=== PATIENT | male | born 1970 | race Caucasian/White ===

== ENCOUNTER 2020-04-14 12:53 | Inpatient (IN) ==
--- NOTE | 2020-04-14 13:18 | Emergency Department Note ---
Impression & Plan Acute renal failure, Dizziness, Back pain, Acute hyperglycemia, Hypokalemia ED Provider Note INFORMANT: Patient ED PROVIDER(S): Boone Munroe MD CHIEF COMPLAINT: Dizziness PLAN: Disposition: Admitted Condition: Good MEDICAL DECISION MAKING: Patient presented with complaints of acute dizziness going on for at least 3 weeks. He notes falling to the side. He did not give a strong history for vertigo. The patient was somewhat of a poor historian on medical details. He also was found to be significantly hypertensive. The patient underwent a work- up. Initially CT angiography was ordered however the patient was found to have acute renal failure and the contrast studies were canceled. He underwent plain CT imaging of his head and this was negative for acute process. The patient's ECG showed a sinus tachycardia with inferior T wave inversions. His chemistry panel revealed significant hyperglycemia and hypokalemia. As noted he had acute renal failure. This was a significant change compared to prior record review. The patient was hydrated. He was given IV insulin and potassium. He was also given IV hydralazine 5 mg. The patient will need further management in the hospital regarding his complaints of the dizziness and balance issue coupled with the acute renal failure and hyperglycemia. [facility] Case was discussed with Niko Gutierrez PA-C. The patient will be admitted by the team. Triage Nursing notes reviewed and agree them. Additional history obtained from patient significant other Prior medical records reviewed creatinine from last year was 1.5. Vital Signs: reviewed and remarkable for significant hypertension Differential diagnosis: Benign positional vertigo, dehydration, hypovolemia, anemia, tumor, infection, hypoglycemia, electrolyte abnormalities, cardiac sources, intracerebral event, toxicologic, neurologic, as well as other pathologies. Diagnostics interpreted by me: ECG: Twelve-lead ECG reveals a sinus tachycardia at 106 bpm. There are inferior T wave inversions. There is no ST elevation. No PACs or PVCs. Normal axis and QRS. Cardiac Monitoring: Cardiac monitoring ordered by me: The patient was placed on continuous cardiac monitoring and observed. It revealed a normal sinus rhythm at 98 beats per minute without ectopy or evidence of dysrhythmia. Imaging studies: Chest x-ray. Findings: A chest x-ray was performed and revealed no pneumothorax, effusion, infiltrate, pulmonary edema, free air under the diaphragm, or wide mediastinum. Impression: No acute disease. Head CT: A noncontrast CT scan of the head was performed and was negative for tumor, fracture, intracranial hemorrhage, or other acute pathology. Consultation(s): [facility] service HPI: The patient is a 49 year old male who presents to the Emergency Room with complaints of dizziness. This started 3 weeks or more ago and is persistent. The patient also notes the following associated symptoms, upper and lower back pain, mild headache. Notes falling to the right side. The patient has found no relieving factors. Current pain is rated as 2/10. Notes no room spinning, he feels off balance. Pt denies LOC, fevers, chills, diaphoresis, visual changes, neck pain, chest pain, breathing difficulties, nausea, vomiting, abdominal pain, melena, hematochezia, urinary symptoms, numbness, weakness, lymphadenopathy, rash, or other complaints. ROS: See above HPI for pertinent positives & negatives. A total of 10 systems reviewed and were otherwise negative. PAST MEDICAL HISTORY:See Below, DM, HTN PAST SURGICAL HISTORY:Tonsils FAMILY HISTORY:See Below SOCIAL HISTORY:See Below, Chews tobacco HOME MEDICATIONS:See Below ALLERGIES:See Below VITALS:See Below PHYSICAL EXAMINATION: GENERAL: Awake, alert, mildly uncomfortable-appearing, in no distress HENT: Normocephalic, atraumatic. Oropharynx unremarkable. EYES: Normal conjunctiva. Sclera non-icteric. PERRL, EOMI. NECK: Inspection normal. Non-tender. Supple. No nuchal rigidity. FROM. No masses. RESPIRATORY: Clear to auscultation. No wheezes. No rales. Normal respiratory effort. CARDIAC: Normal rate. Normal rhythm. No murmurs. No rubs. Extremities warm and well perfused. Pulses equal. No JVD. GI: Soft, non-distended. No tenderness to palpation. No rebound or guarding. No masses. RECTAL: Deferred. MUSCULOSKELETAL: Atraumatic. Chest examination reveals no tenderness. The back is symmetrical on inspection without obvious abnormality. There is no CVA tenderness to palpation. No joint edema. LOWER EXTREMITIES: Calves are equal size bilaterally and non-tender. No edema. No discoloration. NEURO: Normal sensorium. No sensory or motor deficits noted. Speech normal. No drift. SKIN: No rash or jaundice noted. 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 Beliefs That Will Affect Care: None Current Living Situation: Significant Other Other Information That Helps Us Care for You: No Feels Safe at Home: Yes Safety Concerns: Feels Safe At This Time Assistive Devices: Glasses Allergies Allergies Allergy/AdvReac Type Severity Reaction Status Date / Time No Known Allergies Allergy Unverified 04/14/20 14:13 Home Meds Home Medications Medication Instructions Recorded Confirmed amlodipine 10 mg PO DAILY 04/14/20 04/14/20 aspirin [Aspirin Low Dose] 81 mg PO DAILY 04/14/20 04/14/20 atorvastatin 80 mg PO DAILY 04/14/20 04/14/20 bupropion HCl 300 mg PO DAILY 04/14/20 04/14/20 cholecalciferol (vitamin D3) 50 mcg PO DAILY 04/14/20 04/14/20 cyclobenzaprine 10 mg PO HS PRN 04/14/20 04/14/20 ergocalciferol (vitamin D2) 1,250 mcg PO WK 04/14/20 04/14/20 fenofibrate nanocrystallized 145 mg PO DAILY 04/14/20 04/14/20 glipizide 10 mg PO DAILY 04/14/20 04/14/20 insulin glargine [Lantus Solostar 62 unit SUBCUT DAILY 04/14/20 04/14/20 U-100 Insulin] linagliptin 5 mg PO DAILY 04/14/20 04/14/20 losartan 100 mg PO DAILY 04/14/20 04/14/20 metformin 500 mg PO BID 04/14/20 04/14/20 metoprolol succinate 25 mg PO DAILY 04/14/20 04/14/20 triamcinolone acetonide 1 applic TOPICAL BID 04/14/20 04/14/20 Results & Data (ED) Vital Signs Vital Signs - 24 hr 04/14/20 13:04 04/14/20 13:34 04/14/20 15:12 Temperature 36.8 C Temperature Source Oral Pulse Rate - Lying 98 H Pulse Rate - Sitting 103 H Pulse Rate - Standing 106 H Pulse Rate 118 H Pulse Rate [Left Finger] 84 Respiratory Rate 18 20 Respiratory Effort / Characteristics Non-Labored Spontaneous Respiratory Depth Normal Respiratory Pattern Regular Blood Pressure - Lying 204/117 H Blood Pressure - Sitting 195/118 H Blood Pressure- Standing 176/102 H Blood Pressure 193/102 H Blood Pressure [Right Arm] 232/117 H Blood Pressure Mean 132 Blood Pressure Mean [Right Arm] 155 Blood Pressure Position Sitting Pulse Oximetry 98 98 Oxygen Delivery Method Room Air Sepsis Recent Fever Within 48 Hours No Sepsis New/Unexplained Change in Mental Status N/A Sepsis Action Taken by Nursing No Action Required 04/14/20 15:50 Temperature Temperature Source Pulse Rate - Lying Pulse Rate - Sitting Pulse Rate - Standing Pulse Rate Pulse Rate [Left Finger] 87 Respiratory Rate 20 Respiratory Effort / Characteristics Respiratory Depth Respiratory Pattern Blood Pressure - Lying Blood Pressure - Sitting Blood Pressure- Standing Blood Pressure Blood Pressure [Right Arm] 232/112 H Blood Pressure Mean Blood Pressure Mean [Right Arm] 152 Blood Pressure Position Pulse Oximetry Oxygen Delivery Method Sepsis Recent Fever Within 48 Hours Sepsis New/Unexplained Change in Mental Status Sepsis Action Taken by Nursing Laboratory Data Result diagrams: 04/14/20 13:22 04/14/20 13:22 Lab Results 04/14/20 04/14/20 04/14/20 Range/Units 13:22 13:22 13:22 WBC 8.71 (4.8-10.8) K/uL RBC 4.50 L (4.7-6.1) M/uL Hgb 13.3 L (14.0-18.0) g/dL Hct 39.4 L (42-52) % MCV 87.6 (80-100) fL MCH 29.6 (25-34) pg MCHC 33.8 (32-36) g/dL RDW Std Deviation 43.5 (36.4-46.3) fL RDW Coeff of Luz 13.5 (11.5-14.5) % Plt Count 530 H (130-400) K/uL MPV 9.7 (7.4-10.4) fL Immature Gran % (Auto) 0.3 % Neut % (Auto) 72.9 % Lymph % (Auto) 20.3 % [place] % (Auto) 5.5 % Eos % (Auto) 0.8 % Baso % (Auto) 0.2 % Neut # (Auto) 6.34 (1.4-6.5) K/uL Lymph # (Auto) 1.77 (1.2-3.4) K/uL [place] # (Auto) 0.48 (0.11-0.59) K/uL Eos # (Auto) 0.07 (0-0.5) K/uL Baso # (Auto) 0.02 (0-0.2) K/uL Immature Gran # (Auto) 0.03 H (0.00-0.02) K/uL PT 10.9 (9.0-12.0) Seconds INR 1.0 (0.9-1.1) APTT 24.3 (21.0-31.0) Seconds PTT Ratio 0.9 Sodium 134 L (136-145) mmol/L Potassium 3.2 L (3.5-5.1) mmol/L Chloride 101 (98-107) mmol/L Carbon Dioxide 23 (21-32) mmol/L Anion Gap 11.0 (3-11) BUN 33 H (7-18) mg/dl Creatinine 3.94 H (0.6-1.4) mg/dl Est Cr Clr Drug Dosing 23.9 ml/min Est GFR ( Amer) 19.4 Est GFR (Non-Af Amer) 16.8 BUN/Creatinine Ratio 8.4 L (10-20) Glucose 455 H* (70-99) mg/dl POC Glucose (70-99) mg/dl Calcium 8.4 L (8.5-10.1) mg/dl Magnesium 1.9 (1.8-2.4) mg/dl Total Bilirubin 0.2 (0.2-1) mg/dl AST 20 (15-37) U/L ALT 26 (12-78) U/L Alkaline Phosphatase 90 (45-117) U/L Troponin I < 0.015 (0-0.045) ng/ml Total Protein 6.1 L (6.4-8.2) gm/dl Albumin 1.8 L (3.4-5.0) gm/dl Globulin 4.3 H (2.5-4.0) gm/dl Albumin/Globulin Ratio 0.4 L (0.9-2) Beta-Hydroxybutyric Acd 4.61 H (0.2-2.81) mg/dl TSH 3.650 (0.300-4.500) uIu/ml Urine Color Urine Appearance (Clear) Urine pH (4.5-7.5) Ur Specific [place] (1.000-1.030) Urine Protein (Negative) Urine Glucose (UA) (Negative) Urine Ketones (Negative) Urine Blood (Negative) Urine Nitrite (Negative) Urine Bilirubin (Negative) Urine Urobilinogen (Negative) Ur Leukocyte Esterase (Negative) Urine WBC (Auto) (0-5) /hpf Urine RBC (Auto) (0-4) /hpf U Hyaline Cast (Auto) (0-5) /lpf U Epithel Cells (Auto) (0-5) /lpf Urine Bacteria (Auto) (Negative) Ur Renal Epithelial Cell (0-5) /lpf 04/14/20 04/14/20 04/14/20 Range/Units 13:22 14:30 15:08 WBC (4.8-10.8) K/uL RBC (4.7-6.1) M/uL Hgb (14.0-18.0) g/dL Hct (42-52) % MCV (80-100) fL MCH (25-34) pg MCHC (32-36) g/dL RDW Std Deviation (36.4-46.3) fL RDW Coeff of Luz (11.5-14.5) % Plt Count (130-400) K/uL MPV (7.4-10.4) fL Immature Gran % (Auto) % Neut % (Auto) % Lymph % (Auto) % [place] % (Auto) % Eos % (Auto) % Baso % (Auto) % Neut # (Auto) (1.4-6.5) K/uL Lymph # (Auto) (1.2-3.4) K/uL [place] # (Auto) (0.11-0.59) K/uL Eos # (Auto) (0-0.5) K/uL Baso # (Auto) (0-0.2) K/uL Immature Gran # (Auto) (0.00-0.02) K/uL PT (9.0-12.0) Seconds INR (0.9-1.1) APTT (21.0-31.0) Seconds PTT Ratio Sodium (136-145) mmol/L Potassium (3.5-5.1) mmol/L Chloride (98-107) mmol/L Carbon Dioxide (21-32) mmol/L Anion Gap (3-11) BUN (7-18) mg/dl Creatinine (0.6-1.4) mg/dl Est Cr Clr Drug Dosing ml/min Est GFR ( Amer) Est GFR (Non-Af Amer) BUN/Creatinine Ratio (10-20) Glucose (70-99) mg/dl POC Glucose 397 H* (70-99) mg/dl Calcium (8.5-10.1) mg/dl Magnesium (1.8-2.4) mg/dl Total Bilirubin (0.2-1) mg/dl AST (15-37) U/L ALT (12-78) U/L Alkaline Phosphatase (45-117) U/L Troponin I (0-0.045) ng/ml Total Protein (6.4-8.2) gm/dl Albumin (3.4-5.0) gm/dl Globulin (2.5-4.0) gm/dl Albumin/Globulin Ratio (0.9-2) Beta-Hydroxybutyric Acd (0.2-2.81) mg/dl TSH Cancelled (0.300-4.500) uIu/ml Urine Color Yellow Urine Appearance Clear (Clear) Urine pH 6.0 (4.5-7.5) Ur Specific [place] 1.028 (1.000-1.030) Urine Protein 4+ H (Negative) Urine Glucose (UA) 3+ H (Negative) Urine Ketones Negative (Negative) Urine Blood 2+ H (Negative) Urine Nitrite Negative (Negative) Urine Bilirubin Negative (Negative) Urine Urobilinogen Negative (Negative) Ur Leukocyte Esterase Negative (Negative) Urine WBC (Auto) 1-5 (0-5) /hpf Urine RBC (Auto) 5-10 H (0-4) /hpf U Hyaline Cast (Auto) 5-10 H (0-5) /lpf U Epithel Cells (Auto) >30 H (0-5) /lpf Urine Bacteria (Auto) Negative (Negative) Ur Renal Epithelial Cell 0-5 (0-5) /lpf Administered Medications Sodium Chloride (Nss 1000ml) 1,000 mls @ 125 mls/hr IV .Q8H [facility] Stop: 05/14/20 18:12 Last Admin: 04/14/20 18:48 Dose: 125 mls/hr Documented by: [id number] Insulin Aspart (Insulin Aspart 100 Units/Ml 3 Ml Pen) 0 units SC ACHS RUPESH; Protocol Stop: 05/14/20 19:29 Last Admin: 04/14/20 19:37 Dose: 10 units Documented by: [id number] Cosigned by: [id number] Triamcinolone Acetonide (Triamcinolone Acet 0.1% Cr 15 Gm Tube) 1 appln TOP BID RUPESH Stop: 05/14/20 20:59 Last Admin: 04/14/20 19:37 Dose: 1 appln Documented by: [id number] Discontinued Medications Amlodipine Besylate (Amlodipine Besylate 5 Mg Tab) 10 mg PO NOW ONE Stop: 04/14/20 18:14 Last Admin: 04/14/20 18:48 Dose: 10 mg Documented by: [id number] Hydralazine HCl (Hydralazine Hcl 20 Mg/Ml Vial) 5 mg IV NOW ONE Stop: 04/14/20 15:38 Last Admin: 04/14/20 15:42 Dose: Not Given Documented by: [id number] Hydralazine HCl (Hydralazine Hcl 20 Mg/Ml Vial) 10 mg IV NOW STA Stop: 04/14/20 15:38 Last Admin: 04/14/20 15:47 Dose: 10 mg Documented by: [id number] Sodium Chloride (Nss 1000ml) 1,000 mls @ 50 mls/hr IV .Q20H RUPESH Stop: 05/14/20 13:29 Last Infusion: 04/14/20 16:40 Dose: 0 mls/hr Documented by: [id number] Admin: 04/14/20 13:34 Dose: 50 mls/hr Documented by: [id number] Sodium Chloride (Nss 1000ml) 1,000 mls @ 999 mls/hr IV .Q1H1M RUPESH Stop: 04/14/20 15:36 Last Infusion: 04/14/20 16:40 Dose: 0 mls/hr Documented by: [id number] Admin: 04/14/20 15:12 Dose: 999 mls/hr Documented by: [id number] Potassium Chloride (K Jeovany / Wtr) 10 meq in 100 mls @ 100 mls/hr IV ONE ONE Stop: 04/14/20 15:36 Last Infusion: 04/14/20 16:40 Dose: 0 mls/hr Documented by: [id number] Admin: 04/14/20 15:12 Dose: 100 mls/hr Documented by: [id number] Insulin Human Regular (Novolin-R Insulin Per Unit Charge) 10 units IV NOW STA Stop: 04/14/20 14:37 Last Admin: 04/14/20 15:23 Dose: 10 units Documented by: [id number] Cosigned by: [id number] Ioversol (Optiray 320 125ml) 120 ml IV ONCE ONE Stop: 04/14/20 13:24 Last Admin: 04/14/20 13:24 Dose: 120 ml Documented by: [id number] Labetalol HCl (Labetalol Hcl Iv 5 Mg/Ml 20ml) 10 mg IV NOW STA Stop: 04/14/20 19:51 Last Admin: 04/14/20 20:04 Dose: 10 mg Documented by: [id number] Cosigned by: [id number] Potassium Chloride (Potassium Chloride 20 Meq Tabcr) 40 meq PO NOW STA Stop: 04/14/20 18:53 Last Admin: 04/14/20 19:37 Dose: 40 meq Documented by: [id number] Discharge Plan Visit Data Chief Complaint: Vertigo Stated Complaint: BACK PROBLEMS DIZZY ED Provider: Boone Munroe Discharge Problem: Acute renal failure, Dizziness, Back pain, Acute hyperglycemia, Hypokalemia Patient Disposition: Admitted As Inpatient Discharge Instructions Interventions: ED Discharge Assessment Last Done: 04/14/20 17:41
[2020-04-14] MEDS ORDERED: OPTIRAY 320 125ml IV ONE (13:23)
[2020-04-14] MEDS ORDERED: SODIUM CHLORIDE 0.9% 1000ML 1,000 ML IV SCH ×2 (13:30→14:36)
[2020-04-14 13:34] LABS: Basophils # (auto) 0.02 K/uL (0-0.2); Basophils % (auto) 0.2 %; Eosinophils # (auto) 0.07 K/uL (0-0.5); Eosinophils % (auto) 0.8 %; Hematocrit (blood only) 39.4 % (42-52); Hemoglobin 13.3 g/dL (14.0-18.0); Immature Granulocytes # (auto) 0.03 K/uL (0.00-0.02); Immature Granulocytes % (auto) 0.3 %; Lymphocytes # (auto) 1.77 K/uL (1.2-3.4); Lymphocytes % (auto) 20.3 %; Mean Corpuscular Hemoglobin 29.6 pg (25-34); Mean Corpuscular Hgb Conc 33.8 g/dL (32-36); Mean Corpuscular Volume 87.6 fL (80-100); Mean Platelet Volume 9.7 fL (7.4-10.4); Monocytes # (auto) 0.48 K/uL (0.11-0.59); Monocytes % (auto) 5.5 %; Neutrophils # (auto) 6.34 K/uL (1.4-6.5); Neutrophils % (auto) 72.9 %; Platelet Count 530 K/uL (130-400); RDW Coefficient of Variation 13.5 % (11.5-14.5); RDW Standard Deviation 43.5 fL (36.4-46.3); White Blood Count 8.71 K/uL (4.8-10.8)
[2020-04-14 13:44] LABS: Partial Thromboplastin Ratio 0.9; Partial Thromboplastin Time 24.3 Seconds (21.0-31.0); Prothrombin Time 10.9 Seconds (9.0-12.0)
--- NOTE | 2020-04-14 13:58 | XRay Report ---
XR chest 1V portable CLINICAL HISTORY: dizziness COMPARISON STUDY: No previous studies for comparison. FINDINGS: Lung volumes are normal. Lungs are clear. There is no pneumothorax or pleural effusion. Car diac size is normal. Mediastinal contours are normal. There is no evidence for pulmonary edema. IMPRESSION: No acute cardiopulmonary findings. ACT 112: Negative or not required by law. Electronically signed by: Yordy Coon M.D. 04/14/2020 1:57 PM
[2020-04-14 14:03] LABS: Alanine Aminotransferase 26 U/L (12-78); Albumin Globulin Ratio 0.4 (0.9-2); Albumin Level 1.8 gm/dl (3.4-5.0); Aspartate Aminotransferase 20 U/L (15-37); BUN Creatinine Ratio 8.4 (10-20); Bilirubin,Total 0.2 mg/dl (0.2-1); Blood Urea Nitrogen 33 mg/dl (7-18); Calcium 8.4 mg/dl (8.5-10.1); Carbon Dioxide 23 mmol/L (21-32); Chloride 101 mmol/L (98-107); Creatinine Clr Calc Pharmacy 23.9 ml/min; Est GFR (African American) 19.4; Est GFR (Non-African American) 16.8; Globulin 4.3 gm/dl (2.5-4.0); Glucose 455 mg/dl (70-99); Magnesium 1.9 mg/dl (1.8-2.4); Potassium 3.2 mmol/L (3.5-5.1); Sodium 134 mmol/L (136-145); Total Protein 6.1 gm/dl (6.4-8.2)
[2020-04-14 14:09] LABS: Alkaline Phosphatase 90 U/L (45-117); Troponin I < 0.015 ng/ml (0-0.045)
[2020-04-14 14:21] LABS: Beta-Hydroxybutyrate 4.61 mg/dl (0.2-2.81)
[2020-04-14] MEDS ORDERED: NovoLIN-R INSULIN PER UNIT CHARGE IV STA (14:36)
[2020-04-14] MEDS ORDERED: POTASSIUM CHLORIDE / WTR 10 MEQ/100 ML PLCT IV ONE (14:37)
[2020-04-14 15:04] LABS: Appearance Urine Clear (Clear); Bacteria Urine Automated Negative (Negative); Bilirubin Urine Negative (Negative); Blood Urine 2+ (Negative); Color Urine Yellow; Epithelial Cell Urine Auto >30 /lpf (0-5); Glucose Urine UA 3+ (Negative); Ketones Urine Negative (Negative); Leukocyte Esterase Urine Negative (Negative); Nitrite Urine Negative (Negative); Protein Urine 4+ (Negative); Specific Gravity Urine 1.028 (1.000-1.030); Urobilinogen Urine Negative (Negative)
--- NOTE | 2020-04-14 15:08 | CT Scan Report ---
CT OF THE HEAD WITHOUT CONTRAST CLINICAL HISTORY: Stroke evaluation. Dizzy. COMPARISON STUDY: No previous studies for comparison. CT DOSE: 537.48 mGy.cm TECHNIQUE: Helical axial images of the head were obtained without IV contrast. Automated exposure con trol was utilized for the study. A dose lowering technique was utilized adhering to the principles o f ALARA. FINDINGS: No acute intracranial hemorrhage, midline shift or mass effect is present. The ventricular system is unremarkable. The basilar cisterns are patent. No extra-axial collections are present. Ther e are no findings to suggest acute dural sinus thrombosis or acute territorial infarct. No significan t calvarial abnormalities are present. Visualized portions of the sinuses are clear. A small amount o f fluid within the bilateral mastoid air cells is noted. IMPRESSION: 1. No acute intracranial findings. 2. Small amount of fluid within the bilateral mastoid air cells. ACT 112: Negative or not required by law. Electronically signed by: Yordy Coon M.D. 04/14/2020 3:06 PM
[2020-04-14 15:19] LABS: Renal Epithelial Cells Urine 0-5 /lpf (0-5)
[2020-04-14] MEDS ORDERED: HydrALAZINE HCL 20 MG/ML VIAL IV STA (15:37)
[2020-04-14] MEDS ORDERED: HydrALAZINE HCL 20 MG/ML VIAL IV ONE (15:37)
[2020-04-14] MEDS ORDERED: AMLODIPINE BESYLATE 5 MG TAB PO ONE (18:13)
[2020-04-14] MEDS ORDERED: ONDANSETRON INJ 2 MG/ML 2 ML VIAL IV PRN (18:13)
[2020-04-14] MEDS ORDERED: CYCLOBENZAPRINE HCL 10 MG TAB PO PRN (18:13)
[2020-04-14] MEDS ORDERED: PHARMACY GLYCEMIC MGMT CONSULT SCH (18:31)
[2020-04-14] MEDS: SODIUM CHLORIDE 0.9% 1000ML 1,000 ML IV SCH (18:48)
[2020-04-14] MEDS ORDERED: GLUCOSE 40% GEL 15 GM TUBE PO PRN ×2 (18:50→19:15)
[2020-04-14] MEDS ORDERED: GLUCOSE 10 TABS/TUBE PO PRN ×2 (18:50→19:15)
[2020-04-14] MEDS ORDERED: GLUCAGON FOR INJ 1 MG VIAL SQ PRN ×2 (18:50→19:15)
[2020-04-14] MEDS ORDERED: DEXTROSE 50% 50 ML SYRINGE IV PRN ×2 (18:50→19:15)
[2020-04-14] MEDS ORDERED: CARBOHYDRATES FOR HYPOGLYCEMIA PO PRN ×2 (18:50→19:15)
[2020-04-14] MEDS ORDERED: POTASSIUM CHLORIDE 20 MEQ TABCR PO STA (18:52)
--- NOTE | 2020-04-14 19:13 | History & Physical Report ---
Date of Service April 14, 2020 Assessment & Plan (1) Dizziness: 49-year-old male with history of diabetes, hypertension, dyslipidemia, presenting with Dizziness x2 months. Dizziness Rule out acute CVA CT head negative for acute process Check brain MRI Neurochecks May also be secondary to hyperglycemia and uncontrolled hypertension, management noted below Hyperglycemia, diabetes type 2 Last A1c taken in August 2019, was 13 Pharmacy glycemic control consulted Hypertensive urgency Patient reports he did not take his medications this morning Hydralazine IV given Usual metoprolol and amlodipine ordered Hold losartan secondary to acute renal failure Monitor closely Acute renal failure on CKD stage III Baseline BUN/creatinine is 23/1.7, GFR 40s to 50s Creatinine admission 3 Admits to taking ibuprofen Advil almost every day Check renal ultrasound IV NSS ordered Nephrology consulted Lipidemia Continue Lipitor Depression Stable Continue bupropion Back pain Continue Flexeril DVT prophylaxis SCDs for now in light of uncontrolled blood pressure Disposition Lives at home with family Anticipate discharge home medically Care discussed with patient and his fiance in detail at length All questions were answered They are understanding, agreeable, comfortable with plan of care Admission and Anticipated Discharge Date Admission Date: April 14, 2020 History of Present Illness 49-year-old male with history of diabetes, hypertension, dyslipidemia Presenting with dizziness x2 months. History obtained from patient and his fiance at the bedside. Patient has been having dizziness x2 months described as room spinning around him/lightheadedness/loss of balance. He reports that he staggers to the sides when he walks. Denies any other focal neurologic deficits. Patient also reports being compliant with medications. At the ER, blood pressure was found to be systolic 220s, blood glucose levels in the 400s. CT head: Negative for acute CVA On exam, patient seen resting in bed, comfortable, not in distress. Denies active dizziness, shortness of breath, palpitations, chest pain, headache, nausea or vomiting. No other symptoms Primary Care Provider: Pauline Carrillo DO Allergies Allergy/AdvReac Type Severity Reaction Status Date / Time No Known Allergies Allergy Unverified 04/14/20 14:13 Home Medications Home Medications Medication Instructions Recorded Confirmed Type amlodipine 10 mg PO DAILY 04/14/20 04/14/20 History aspirin [Aspirin Low Dose] 81 mg PO DAILY 04/14/20 04/14/20 History atorvastatin 80 mg PO DAILY 04/14/20 04/14/20 History bupropion HCl 300 mg PO DAILY 04/14/20 04/14/20 History cholecalciferol (vitamin D3) 50 mcg PO DAILY 04/14/20 04/14/20 History cyclobenzaprine 10 mg PO HS PRN 04/14/20 04/14/20 History ergocalciferol (vitamin D2) 1,250 mcg PO WK 04/14/20 04/14/20 History fenofibrate nanocrystallized 145 mg PO DAILY 04/14/20 04/14/20 History glipizide 10 mg PO DAILY 04/14/20 04/14/20 History insulin glargine [Lantus Solostar 62 unit SUBCUT DAILY 04/14/20 04/14/20 History U-100 Insulin] linagliptin 5 mg PO DAILY 04/14/20 04/14/20 History losartan 100 mg PO DAILY 04/14/20 04/14/20 History metformin 500 mg PO BID 04/14/20 04/14/20 History metoprolol succinate 25 mg PO DAILY 04/14/20 04/14/20 History triamcinolone acetonide 1 applic TOPICAL BID 04/14/20 04/14/20 History Past Med/Surg History Social History Smoking Status: Unknown if ever smoked Second Hand Exposure: No; Do You Dip or Chew Tobacco: Yes (can per day); Tobacco Cessation Education Requested by Patient: No Hx Alcohol Use: Yes Hx Substance Use: No Preferred Language: Bangladeshi Communication Ability: Effective Plate Setter Required: No Beliefs That Will Affect Care: None Current Living Situation: Significant Other Other Information That Helps Us Care for You: No Feels Safe at Home: Yes Safety Concerns: Feels Safe At This Time Assistive Devices: Glasses Review of Systems Review of Systems: All systems reviewed & are unremarkable except as noted in Subjective Physical Exam Physical Exam: General- oriented x 3, not in distress, speaks in sentences with no effort or accessory muscle use Head- atraumatic Eyes- PERRL, EOMI, anicteric ENT- oropharynx clear Neck- supple, no JVD, no adenopathy, no thyromegaly; carotids +2/2, no bruits appreciated Lungs- clear to auscultation bilaterally, no rales/wheezes Heart- normal rate, regular rhythm; no murmur, no gallop, no rub appreciated Abdomen- normal bowel sounds, nondistended, soft, nontender, no masses or hepatosplenomegaly Extremities- no pretibial edema, no calf tenderness; peripheral pulses intact Neuro- alert, oriented x 3; CN 2-12 grossly intact; motor 5/5 bilaterally;sensation 100% on all extremities; no other gross focal neurologic deficits Skin- warm & dry Results & Data Results & Data ([facility]) Vital Signs (Past 12 Hours) Vital Signs Temp Pulse Pulse Resp BP BP BP 04/14/20 18:29 113 H 04/14/20 18:01 36.7 C 114 H 18 197/113 H 193/110 H 04/14/20 17:00 100 H 20 212/112 H 04/14/20 16:30 99 H 20 218/117 H 04/14/20 15:50 87 20 232/112 H 04/14/20 15:12 84 20 232/117 H 04/14/20 13:04 36.8 C 118 H 18 193/102 H Pulse Ox 04/14/20 18:29 04/14/20 18:01 100 04/14/20 17:00 98 04/14/20 16:30 99 04/14/20 15:50 04/14/20 15:12 98 04/14/20 13:04 98 Laboratory Results Laboratory Results - last 24 hr 04/14/20 04/14/20 04/14/20 13:22 13:22 13:22 WBC 8.71 RBC 4.50 L Hgb 13.3 L Hct 39.4 L MCV 87.6 MCH 29.6 MCHC 33.8 RDW Std Deviation 43.5 RDW Coeff of Luz 13.5 Plt Count 530 H MPV 9.7 Immature Gran % (Auto) 0.3 Neut % (Auto) 72.9 Lymph % (Auto) 20.3 Webster % (Auto) 5.5 Eos % (Auto) 0.8 Baso % (Auto) 0.2 Neut # (Auto) 6.34 Lymph # (Auto) 1.77 Webster # (Auto) 0.48 Eos # (Auto) 0.07 Baso # (Auto) 0.02 Immature Gran # (Auto) 0.03 H PT 10.9 INR 1.0 APTT 24.3 PTT Ratio 0.9 Sodium 134 L Potassium 3.2 L Chloride 101 Carbon Dioxide 23 Anion Gap 11.0 BUN 33 H Creatinine 3.94 H Est Cr Clr Drug Dosing 23.9 Est GFR ( Amer) 19.4 Est GFR (Non-Af Amer) 16.8 BUN/Creatinine Ratio 8.4 L Glucose 455 H* POC Glucose Calcium 8.4 L Magnesium 1.9 Total Bilirubin 0.2 AST 20 ALT 26 Alkaline Phosphatase 90 Troponin I < 0.015 Total Protein 6.1 L Albumin 1.8 L Globulin 4.3 H Albumin/Globulin Ratio 0.4 L Beta-Hydroxybutyric Acd 4.61 H TSH 3.650 Urine Color Urine Appearance Urine pH Ur Specific [place] Urine Protein Urine Glucose (UA) Urine Ketones Urine Blood Urine Nitrite Urine Bilirubin Urine Urobilinogen Ur Leukocyte Esterase Urine WBC (Auto) Urine RBC (Auto) U Hyaline Cast (Auto) U Epithel Cells (Auto) Urine Bacteria (Auto) Ur Renal Epithelial Cell 04/14/20 04/14/20 04/14/20 13:22 14:30 15:08 WBC RBC Hgb Hct MCV MCH MCHC RDW Std Deviation RDW Coeff of Luz Plt Count MPV Immature Gran % (Auto) Neut % (Auto) Lymph % (Auto) [place] % (Auto) Eos % (Auto) Baso % (Auto) Neut # (Auto) Lymph # (Auto) Webster # (Auto) Eos # (Auto) Baso # (Auto) Immature Gran # (Auto) PT INR APTT PTT Ratio Sodium Potassium Chloride Carbon Dioxide Anion Gap BUN Creatinine Est Cr Clr Drug Dosing Est GFR ( Amer) Est GFR (Non-Af Amer) BUN/Creatinine Ratio Glucose POC Glucose 397 H* Calcium Magnesium Total Bilirubin AST ALT Alkaline Phosphatase Troponin I Total Protein Albumin Globulin Albumin/Globulin Ratio Beta-Hydroxybutyric Acd TSH Cancelled Urine Color Yellow Urine Appearance Clear Urine pH 6.0 Ur Specific [place] 1.028 Urine Protein 4+ H Urine Glucose (UA) 3+ H Urine Ketones Negative Urine Blood 2+ H Urine Nitrite Negative Urine Bilirubin Negative Urine Urobilinogen Negative Ur Leukocyte Esterase Negative Urine WBC (Auto) 1-5 Urine RBC (Auto) 5-10 H U Hyaline Cast (Auto) 5-10 H U Epithel Cells (Auto) >30 H Urine Bacteria (Auto) Negative Ur Renal Epithelial Cell 0-5 04/14/20 04/14/20 16:37 18:03 WBC RBC Hgb Hct MCV MCH MCHC RDW Std Deviation RDW Coeff of Luz Plt Count MPV Immature Gran % (Auto) Neut % (Auto) Lymph % (Auto) [place] % (Auto) Eos % (Auto) Baso % (Auto) Neut # (Auto) Lymph # (Auto) [place] # (Auto) Eos # (Auto) Baso # (Auto) Immature Gran # (Auto) PT INR APTT PTT Ratio Sodium Potassium Chloride Carbon Dioxide Anion Gap BUN Creatinine Est Cr Clr Drug Dosing Est GFR ( Amer) Est GFR (Non-Af Amer) BUN/Creatinine Ratio Glucose POC Glucose 260 H 222 H Calcium Magnesium Total Bilirubin AST ALT Alkaline Phosphatase Troponin I Total Protein Albumin Globulin Albumin/Globulin Ratio Beta-Hydroxybutyric Acd TSH Urine Color Urine Appearance Urine pH Ur Specific [place] Urine Protein Urine Glucose (UA) Urine Ketones Urine Blood Urine Nitrite Urine Bilirubin Urine Urobilinogen Ur Leukocyte Esterase Urine WBC (Auto) Urine RBC (Auto) U Hyaline Cast (Auto) U Epithel Cells (Auto) Urine Bacteria (Auto) Ur Renal Epithelial Cell Code Status & VTE Plan VTE Prophylaxis Plan VTE Prophylaxis will be ordered: Yes
--- NOTE | 2020-04-14 19:17 | Pharmacy Report ---
Glycemic Control Consultation - Date of Service April 14, 2020 - Scope Scope: Glycemic Pharmacist consulted for glycemic control and to write orders per [facility] inpatient glycemic control protocol. - Objective Weight: 90.4 kg Accuchecks BSG (last 24hrs): 04/14/20 04/14/20 04/14/20 13:22 15:08 16:37 Glucose 455 H* POC Glucose 397 H* 260 H 04/14/20 18:03 Glucose POC Glucose 222 H Laboratory Data (last 24hrs): 04/14/20 13:22 Potassium 3.2 L Carbon Dioxide 23 Anion Gap 11.0 Creatinine 3.94 H Est Cr Clr Drug Dosing 23.9 Beta-Hydroxybutyric Acd 4.61 H - Recent Pertinent Medications Outpatient Anti-diabetic Regimen: * Lantus 62 units SQ daily * Metformin 500mg PO BID * Glipizide 10mg PO Daily * Linagliptin 5mg PO daily * A1c unknown, ordered with AM labs Risk Factors for Insulin Resistance: * IVF:NS @ 125cc/hr * Diet: Clears, Type 2 DM - Assessment & Plan Assessment & Plan: ASSESSMENT: * 49 year old type 2 diabetic admitted for back pain and dizziness. Hyperglycemic on arrival, BSG 455mg/dl, reports taking Lantus this morning. * Patient's blood sugars down to 222mg/dl after 10 units IV regular insulin in ER and IV hydration * Oral agents are not recommended for inpatient use d/t drug interactions, changing PO intake, and difficulty titrating for acute hyper/hypoglycemia. Will hold and utilize SQ basal bolus insulin regimen which is the recommended regimen for inpatient glycemic control. * ADA & AACE recommend a goal blood sugar range 140-180 mg/dl for the majority of critically ill & non-critically ill patients. However, more stringent targets may be selected in individual cases. Will utilize more stringent goal of 110-140mg/dl based on patient age & comorbidities. Additionally, tighter glycemic control is warranted to facilitate wound/infection healing. PLAN FOR INPATIENT GLYCEMIC CONTROL: * A1c with AM labs * Holding outpatient oral diabetes medications * Basal insulin * Lantus 50 units SQ daily ([facility] to evaluate dose in AM after more blood sugar data collected overnight) * Bolus insulin * NovoLog per scale ACHS and at 0200 overnight tonight * Goal Range: Low 110 mg/dL - High 140 mg/dL * Correction Factor: 15 mg/dL/unit * Nutritional / Prandial insulin per carb ratio of 1 unit per 6 grams CHO consumed * Please note that the plan above was derived based on current level of insulin resistance and hospital stress. These recommendations are appropriate for inpatient admission only. Plan of care upon discharge will need to be reassessed to avoid potential outpatient hypo/hyperglycemia. Thank you.
[2020-04-14] MEDS: INSULIN ASPART 100 UNITS/ML 3 ML PEN SC SCH ×2 (19:37→22:02)
[2020-04-14] MEDS: TRIAMCINOLONE ACET 0.1% CR 15 GM TUBE TOP SCH (19:37)
[2020-04-14] MEDS ORDERED: LABETALOL HCL IV 5 MG/ML 20ML IV STA (19:50)
[2020-04-14] MEDS: HydrALAZINE HCL 20 MG/ML VIAL IV PRN (21:00)
[2020-04-15] MEDS: ACETAMINOPHEN 325 MG TAB PO PRN ×2 (00:37→07:59)
[2020-04-15] MEDS ORDERED: INSULIN ASPART 100 UNITS/ML 3 ML PEN SC SCH (02:00)
[2020-04-15] MEDS: SODIUM CHLORIDE 0.9% 1000ML 1,000 ML IV SCH ×2 (03:48→11:51)
[2020-04-15 06:06] LABS: Basophils # (auto) 0.02 K/uL (0-0.2); Basophils % (auto) 0.2 %; Eosinophils # (auto) 0.09 K/uL (0-0.5); Eosinophils % (auto) 1.1 %; Hematocrit (blood only) 35.6 % (42-52); Hemoglobin 12.3 g/dL (14.0-18.0); Immature Granulocytes # (auto) 0.02 K/uL (0.00-0.02); Immature Granulocytes % (auto) 0.2 %; Lymphocytes # (auto) 2.09 K/uL (1.2-3.4); Lymphocytes % (auto) 24.6 %; Mean Corpuscular Hemoglobin 29.7 pg (25-34); Mean Corpuscular Hgb Conc 34.6 g/dL (32-36); Mean Platelet Volume 9.6 fL (7.4-10.4); Monocytes # (auto) 0.36 K/uL (0.11-0.59); Monocytes % (auto) 4.2 %; Neutrophils # (auto) 5.91 K/uL (1.4-6.5); Neutrophils % (auto) 69.7 %; Platelet Count 445 K/uL (130-400); RDW Coefficient of Variation 13.8 % (11.5-14.5); RDW Standard Deviation 43.4 fL (36.4-46.3); Red Blood Count 4.14 M/uL (4.7-6.1); White Blood Count 8.49 K/uL (4.8-10.8)
[2020-04-15 06:41] LABS: Calcium 7.7 mg/dl (8.5-10.1); Creatinine Clr Calc Pharmacy 29.3 ml/min; Est GFR (African American) 24.9; Est GFR (Non-African American) 21.5; Potassium 3.1 mmol/L (3.5-5.1)
[2020-04-15 06:58] LABS: Estimated Average Glucose 232 mg/dl; Hemoglobin A1C 9.7 % (4.5-5.6)
--- NOTE | 2020-04-15 07:31 | Ultrasound Report ---
ULTRASOUND KIDNEYS AND BLADDER CLINICAL HISTORY: Acute renal insufficiency. COMPARISON STUDY: No priors. TECHNIQUE: Real-time, grayscale, and color flow sonography of the kidneys and bladder is performed. I mages are reviewed in the transverse and longitudinal planes. FINDINGS: Kidneys: The kidneys are normal in size and echotexture. The right kidney measures 11.6 x 5.4 x 6.9 c m and the left kidney measures 10.1 x 6.9 x 5.7 cm. There is no hydronephrosis. No shadowing renal c alculi are identified. There is no sonographic evidence of contour deforming renal mass lesion. No pe rinephric fluid is identified. Bladder: The prostate gland is mildly enlarged. The bladder is normal in appearance. Bilateral ureter al jets were seen. Upper abdomen: Survey images of the liver show evidence of hepatic steatosis. IMPRESSION: Unremarkable sonographic assessment of the kidneys and bladder. ACT 112: Negative or not required by law. Electronically signed by: Niko Mark M.D. 04/15/2020 7:29 AM
[2020-04-15] MEDS: FENOFIBRATE NANOCRYSTALLIZED 145 MG TABLET PO SCH (08:00)
[2020-04-15] MEDS ORDERED: PNEUMOCOCCAL Polysaccharide Vaccine 25mcg/0.5mL vial/Syr IM ONE (08:00)
[2020-04-15] MEDS: METOPROLOL SUCC 25MG EXT REL TAB PO SCH (08:00)
[2020-04-15] MEDS: BuPROPion XL 300 MG TABCR PO SCH (08:00)
[2020-04-15] MEDS ORDERED: ERGOCALCIFEROL 50,000 UNITS CAP PO SCH (08:00)
[2020-04-15] MEDS: AMLODIPINE BESYLATE 5 MG TAB PO SCH (08:00)
[2020-04-15] MEDS: CHOLECALCIFEROL 1,000 UNITS 25 MCG TAB PO SCH (08:00)
[2020-04-15] MEDS: ATORVASTATIN 40 MG TAB PO SCH (08:00)
[2020-04-15] MEDS: INSULIN ASPART 100 UNITS/ML 3 ML PEN SC SCH ×4 (08:04→20:25)
[2020-04-15] MEDS: TRIAMCINOLONE ACET 0.1% CR 15 GM TUBE TOP SCH ×2 (08:08→20:24)
[2020-04-15] MEDS ORDERED: INSULIN GLARGINE SOLOSTAR 100 UNITS/ML 3 ML PEN SC SCH ×2 (09:00→21:00)
--- NOTE | 2020-04-15 09:26 | Magnetic Resonance Report ---
Brain MRI WITHOUT CONTRAST HISTORY: DIZZINESS, R/O CVA TECHNIQUE: Multiplanar multisequence MRI of the brain was performed without the use of contrast. COMPARISON STUDY: Head CT 04/14/2020. FINDINGS: There are no areas of restricted diffusion to suggest acute infarction. The midline structu res are intact. The paranasal sinuses are clear. Trace bilateral mastoid effusions. A few scattered p unctate foci of T2 hyperintensity seen within the periventricular and subcortical white matter. These are nonspecific but favor mild microvascular ischemic change. The ventricles and sulci are within no rmal limits for age. There is no mass, hematoma, midline shift. The major vascular flow-voids at the skull base are well maintained. IMPRESSION: 1. No acute intracranial abnormality. 2. A few scattered foci of T2 hyperintensity seen within the periventricular and subcortical white ma tter are nonspecific but favor mild microvascular ischemic change. Migraines, Lyme disease, or a demy elinating disease is also have a similar appearance in the appropriate clinical setting. 3. Trace bilateral mastoid effusions are again noted. ACT 112: Negative or not required by law. Electronically signed by: Sourav Payne M.D. 04/15/2020 9:25 AM
[2020-04-15] MEDS: INSULIN GLARGINE SOLOSTAR 100 UNITS/ML 3 ML PEN SC SCH (09:38)
--- NOTE | 2020-04-15 10:13 | Nephrology Consultation ---
Date of Consultation April 15, 2020 Assessment & Plan (1) Acute on chronic renal failure: creatinine 3.9 on presentation yesterday, down to 3.2 today. Baseline 1.7. chemistries but for K ok; likely prerenal versus ischemic ATN in setting of HTN urgency, heavy nsaid use, preexisting nephrotic range proteinuria -focus on appropriate bp control -daily bmp ok for now -cont to hold OP losartan -NO NSAIDS -no need for [employer] currently; high risk to need in his lifetime -may relate to nephrotic syndrome and /or nsaid use; other etiologies possible Present on Admission?: Yes (2) Proteinuria, unspecified: hx of nephrotic range proteinuria prior to admission; certain to be worse now with nsaids on board. hold OP ARB for now Present on Admission?: Yes (3) Hypertensive urgency: -cont CCB, BB and prn hydralazine yoly the latter as ordered -control pain -goal sBP is 150-160s -change IVF to hypotonic -monitor for sx at leats q4h Present on Admission?: Yes (4) Hypokalemia: K 3.2 on 04/14 presentation to 3.1 today. had 10 mEq IV x 1 >add K to fluids above -give 20 po x 1 as well - order in Present on Admission?: Yes History of Present Illness Reason for Consultation: MARCOS Requesting Physician: Dr Barnes Attending Physician: Miquel Barnes MD History of Present Illness 49 y/o M whom I'm asked to see for MARCOS after he was admitted yesterday afternoon for HTN urgency, uncontrolled BG after he presented with 2 mos of dizziness. PMH includes HL, HTN, DM, CKD3 w/ baseline creatinine 1.7 earlier this year on outpatient labs with proteinuria 5.6 g at that time. Presenting creatinine 3.9 w/ K 3.2, improved to 3.2 and 3.1 respectively today. He is getting NS at 100 mL hourly as well as toprol XL 25 mg daily, amlodipine 10 mg daily; has prn hydralazine 10 Mg IV which he's had once. Hi sOP losartan and metformin have been held. SBP have been running 190s-210s, not much changed since admission. Had been taking advil alternating with aleve near daily prior to admission-- at least 4 tabs daily. He was seen by me in kidney clinic early 2018. He no catherine wed follow-up appointment February 2019. Allergies Allergy/AdvReac Type Severity Reaction Status Date / Time No Known Allergies Allergy Unverified 04/14/20 14:13 Home Medications Home Medications Medication Instructions Recorded Confirmed Type amlodipine 10 mg PO DAILY 04/14/20 04/14/20 History aspirin [Aspirin Low Dose] 81 mg PO DAILY 04/14/20 04/14/20 History atorvastatin 80 mg PO DAILY 04/14/20 04/14/20 History bupropion HCl 300 mg PO DAILY 04/14/20 04/14/20 History cholecalciferol (vitamin D3) 50 mcg PO DAILY 04/14/20 04/14/20 History cyclobenzaprine 10 mg PO HS PRN 04/14/20 04/14/20 History ergocalciferol (vitamin D2) 1,250 mcg PO WK 04/14/20 04/14/20 History fenofibrate nanocrystallized 145 mg PO DAILY 04/14/20 04/14/20 History glipizide 10 mg PO DAILY 04/14/20 04/14/20 History insulin glargine [Lantus Solostar 62 unit SUBCUT DAILY 04/14/20 04/14/20 History U-100 Insulin] linagliptin 5 mg PO DAILY 04/14/20 04/14/20 History losartan 100 mg PO DAILY 04/14/20 04/14/20 History metformin 500 mg PO BID 04/14/20 04/14/20 History metoprolol succinate 25 mg PO DAILY 04/14/20 04/14/20 History triamcinolone acetonide 1 applic TOPICAL BID 04/14/20 04/14/20 History Patient History Medical History (Updated 04/15/20 @ 10:23 by Nina Corea MD, PhD) Chronic back pain CKD (chronic kidney disease) stage 3, GFR 30-59 ml/min Diabetes HTN (hypertension) Proteinuria, unspecified Family History (Updated 04/15/20 @ 10:22 by Nina Corea MD, PhD) Father Diabetes Mother Diabetes Social History Smoking Status: Unknown if ever smoked Second Hand Exposure: No; Do You Dip or Chew Tobacco: Yes (can per day); Tobacco Cessation Education Requested by Patient: No Hx Alcohol Use: Yes Hx Substance Use: No Preferred Language: Maltese Communication Ability: Effective Gallery Assistant Required: No Beliefs That Will Affect Care: None Current Living Situation: Significant Other Other Information That Helps Us Care for You: No Feels Safe at Home: Yes Safety Concerns: Feels Safe At This Time Assistive Devices: None Review of Systems Review of Systems: All systems reviewed & are unremarkable except as noted in HPI & below Constitutional: fatigue Eyes: no worsening vision Ear, Nose, Mouth, Throat: + dizziness; no tinnitus Respiratory: no cough and no dyspnea Cardiovascular: no orthopnea, no palpitations and no edema Gastrointestinal: no abdominal pain, no early satiety, no vomiting and no diarrhea/loose stools Genitourinary: no problem reported Integumentary: no rash Neurologic: denies focal numbness/weakness Physical Exam Constitutional: well developed and well nourished; no acute distress lyin gflat on RA Eyes: EOM intact bilaterally ENMT: Ears: no external ear abnormality Nose: no external nose abnormality Mouth: + dry oral mucous membranes Neck: no nuchal rigidity Respiratory: normal respiratory effort Auscultation: lungs clear to auscultation bilaterally and + diminished lung sounds Cardiovascular: RRR, no murmur, no edema Gastrointestinal (Abdomen): Inspection/Auscultation: normal bowel sounds Percussion/Palpation: abdomen soft; abdomen nontender Musculoskeletal: Extremities: strength 5/5 throughout Skin: no rashes, warm and dry Neurologic: summers, fluent speech, no tremor Genitourinary: no gaytan Results & Data ([facility]) Vital Signs (Past 12 Hours) Vital Signs Temp Pulse Pulse Resp BP BP Pulse Ox 04/15/20 07:25 36.5 C 102 H 20 201/102 H 99 04/15/20 04:28 37.1 C 101 H 20 163/83 H 98 04/15/20 00:40 91 H 04/15/20 00:23 36.4 C L 92 H 18 182/93 H 98 Laboratory Results 04/15/20 05:46 04/15/20 05:46 Presenting urinalysis: specific gravity 1028, pH 6.0, protein 4+, glucose 3+, blood 2+ greater than 30 epithelials per low powered field and 5-10 red cells per high-powered field; other indices negative Diagnostic Findings Renal ultrasound Unremarkable Chest x-ray without acute cardiopulmonary findings Head CT without acute intracranial findings Brain MRI 1. No acute intracranial abnormality. 2. A few scattered foci of T2 hyperintensity seen within the periventricular and subcortical white matter are nonspecific but favor mild microvascular ischemic change. Migraines, Lyme disease, or a demyelinating disease is also have a sim ilar appearance in the appropriate clinical setting. 3. Trace bilateral mastoid effusions are again noted.
--- NOTE | 2020-04-15 10:17 | Pharmacy Report ---
Pharmacy Glycemic Short Note 2 - Date of Service April 15, 2020 - Glycemic Short BSG Results (Last 24 hours): 04/14/20 04/14/20 04/14/20 13:22 15:08 16:37 Glucose 455 H* POC Glucose 397 H* 260 H 04/14/20 04/14/20 04/14/20 18:03 19:24 22:02 Glucose POC Glucose 222 H 279 H 150 H 04/15/20 04/15/20 04/15/20 02:09 05:46 07:27 Glucose 206 H POC Glucose 159 H 168 H Outpatient Anti-diabetic Regimen: * Lantus 62 units SQ daily * Patient reports not taking (see below) * Glipizide 10mg PO BID (see below) * Linagliptin 5mg PO daily * A1c 9.7% on 04/15/20, which has trended down from 13% in Aug 2019 Risk Factors for Insulin Resistance: * Diet: Clears, Type 2 DM ASSESSMENT: 04/15 * BSG's trended down nicely after more aggressive parameters initiated yesterday. * Now that severe hyperglycemia has resolved and BSG at/near goal since last night, will scale back on glycemic regimen to prevent further trend down * Novolog - loosen to very slightly looser than severe stress estimate * Lantus - very slightly less than severe stress estimate as full daily dose this AM. Was planning for supplemental Lantus based on BSG tonight, but will hold due to updates from Aruna Wylie (see below). 04/14 * 49 year old type 2 diabetic admitted for back pain and dizziness. Hyperglycemic on arrival, BSG 455mg/dl, reports taking Lantus this morning. * Patient's blood sugars down to 222mg/dl after 10 units IV regular insulin in ER and IV hydration * Oral agents are not recommended for inpatient use d/t drug interactions, changing PO intake, and difficulty titrating for acute hyper/hypoglycemia. Will hold and utilize SQ basal bolus insulin regimen which is the recommended regimen for inpatient glycemic control. * ADA & AACE recommend a goal blood sugar range 140-180 mg/dl for the majority of critically ill & non-critically ill patients. However, more stringent targets may be selected in individual cases. Will utilize more stringent goal of 110-140mg/dl based on patient age & comorbidities. Additionally, tighter glycemic control is warranted to facilitate wound/infection healing. PLAN FOR INPATIENT GLYCEMIC CONTROL: * Hold outpatient oral diabetes medications * Basal insulin * Lantus 40 units SQ this AM * Bolus insulin * NovoLog per scale ACHS or Q6hrs while NPO * Goal Range: Low 110 mg/dL - High 140 mg/dL * Correction Factor: 20 mg/dL/unit * Nutritional / Prandial insulin per carb ratio of 1 unit per 7 grams CHO consumed Discharge considerations Background I spoke w Aruna Wylie (clinical nurse educator). She notes the patient's current outpatient glycemic regimen is different from previously reported: Metformin stopped, likely 2nd diarrhea ADR and possibly 2nd renal dysfunction. Also - glipizide is BID. Patient reported obtaining BSG's BID - usually ~100 mg/dL for AM fasting but 300-500 mg/dL at bedtime. Patient reports he eats some CHO with breakfast, rarely eats lunch, and significant CHO/usually takeout at dinner. Has an understanding about higher CHO items (potatoes, pizza, etc). He is willing to initiate Novolog but per Aruna would not be able to manage a specific CHO count regimen. He could manage to adjust dose based on relative CHO intake (no/low/high) Assessment/Recommendations * Adding Novolog TID with meals based on no/low/high CHO (usual for lunch/breakfast/dinner respectively) scale seems reasonable. Specific dosing difficult to determine at this point as patient has not had significant PO intake yet * Lantus will need to be adjusted down with addition of Novolog as I suspect the AM fasting in goal range is due to Lantus with significant overnight effects that cause BSG to drop from 300-500's at HS to 100 mg/dL in the morning * Continue to hold metformin due to intolerance and renal dysfunction (will need to be "discontinued" on discharge at it is listed as an active med although the patient reports not taking) * Stop glipizide for now due to initiation of Novolog and increased risk for hypoglycemia on the combination. May be able to be added back as an outpatient depending on trend in BSG's * Continue linagliptin
[2020-04-15] MEDS ORDERED: POTASSIUM CHLORIDE 20 MEQ TABCR PO STA (13:10)
[2020-04-15] MEDS ORDERED: POTASSIUM CHLORIDE 20 MEQ in SODIUM CHLORIDE 0.45 % 1,000 ML IV STA (13:10)
--- NOTE | 2020-04-15 16:26 | Communication Note ---
Date of Service: April 15, 2020 I was consulted by Dr. Trammell on Marlo Patel because of his history of 3 months of disequilibrium vertigo gait imbalance which he presented to the emergency room and was found to have a markedly elevated glucose of over 400, blood pressure of 220 systolic, acute renal failure superimposed upon chronic renal failure, hypokalemia, and a subsequent MRI scan it shows a few nonspecific high T2 intensity signals in the cerebral white matter unfortunately triggering t the usual differential diagnostic list of vasculitis, multiple sclerosis, Lyme disease etc. etc. He has been in the hospital overnight has had adequate treatment of both his blood pressure and his glucose is coming down and states that he is feeling much better and is back to his baseline with some hypersensitivity of his feet not unexpected in a 10-year plus insulin-dependent diabetic with probable small and large fiber neuropathy without any headaches diplopia vertigo on moving his head and without gait issues of significance Home medications include amlodipine aspirin atorvastatin bupropion, cholecalciferol, cyclobenzaprine, ergocalciferol fenofibrate, glipizide, insu jose angel, Aura Iliana, losartan, metformin, metoprolol triamcinolone How much the clearance of some of these medications may have been affected by his renal failure is unclear but may be another factor contributing to what is likely a multifactorial encephalopathy with metabolic more than toxic elements Family history social history and review of systems are as recorded in the chart Exam today reveals a blood pressure 164/79 pulse is 85 respirations are 18 he is afebrile his O2 saturation 97% he is awake alert oriented in 3 spheres with normal speech normal eye movements normal facial motility and strength normal facial sensation he can move his upper extremities well there is no cerebellar dysmetria on finger-nose or [id number] testing and [id number] testing is normal reflexes are absent at the ankles reduced at the knees toes are downgoing no Adela signs are seen strength testing is essentially normal and sensory examination reveals some hypersensitivity to touch but is otherwise subjectively normal including proprioceptive and and other large fiber modalities with exception of vibration which is a little bit reduced legs compared to the arm Upon review of the imaging studies I do not feel that this represents any of the more concerning diagnostic considerations mentioned in the report but rather small vessel changes which I would have expected in light of this man's history to have been more extensive despite his youthful age as I suspect he has been under less than adequate control of his hypertension diabetes and renal function for quite a number of years Overall and I think this was a metabolic/hypertensive related cerebral dysfunction syndrome without any lateralizing features normal evidence for chronic microvascular changes and that no further evaluation for multiple sclerosis vasculitis etc. is indicated I do not feel he needs neurologic evaluation on an outpatient basis at this time his only has a very mild sensory neuropathy which fortunately is nonpainful and we can see him in the future if his primary care physician on the outpatient basis thinks that it is indicated but for now I would simply continue his antiplatelet agents and manage his vascular risk factors within the limits imposed by his level of compliance Neurology will be signing off the chart will be happy to take a look at him again if things change during the current hospital stay Boone Chavez MD
--- NOTE | 2020-04-15 20:49 | Hospitalist Progress Note ---
Date of Service delayed entry date of service noted below April 15, 2020 Assessment & Plan (1) Dizziness: 49-year-old male with history of diabetes, hypertension, dyslipidemia, presenting with Dizziness x2 months. Dizziness improving CVA ruled out CT head negative for acute process Brain MRI no acute process Neurochecks May also be secondary to hyperglycemia and uncontrolled hypertension, management noted below Hyperglycemia, diabetes type 2 Last A1c taken in August 2019, was 13 Pharmacy glycemic control consulted Hypertensive Urgency Patient reports he did not take his medications this morning Hydralazine IV given Usual metoprolol and amlodipine ordered Hold losartan secondary to acute renal failure add Hydralazine for better control Monitor closely Acute renal failure on CKD stage III Baseline BUN/creatinine is 23/1.7, GFR 40s to 50s Creatinine admission 3, slightly improved Admits to taking ibuprofen Advil almost every day renal ultrasound: no obstruction IV NSS ordered Nephrology consulted Dyslipidemia Continue Lipitor Depression Stable Continue bupropion Back pain Continue Flexeril DVT prophylaxis SCDs for now in light of uncontrolled blood pressure Disposition Lives at home with family Anticipate discharge home medically Admission and Anticipated Discharge Date Admission Date: April 14, 2020 Subjective ff up for hypertension, hyperglycemia, acute renal failure seen resting in bed, comfortable states he feels improved overall dizziness resolved denies chest pain, dyspnea, palpitations, dizziness no problems with urination Review of Systems Review of Systems: All systems reviewed & are unremarkable except as noted in Subjective Physical Exam Physical Exam: General- oriented x 3, not in distress, speaks in sentences with no effort or accessory muscle use Eyes- anicteric Neck- no JVD Lungs- clear breath sounds BL Heart- normal rate, regular rhythm; no murmurs Abdomen- normal bowel sounds, nondistended, soft, nontender Extremities- no pretibial edema, no calf tenderness Neuro- alert, oriented x 3; no gross focal neurologic deficits Skin- warm & dry Results & Data Results & Data ([facility]) Vital Signs (Past 12 Hours) Vital Signs Temp Pulse Resp BP BP Pulse Ox 04/15/20 19:22 36.7 C 91 H 19 155/81 H 97 04/15/20 15:19 36.7 C 85 18 164/79 H 97 04/15/20 11:54 36.7 C 92 H 20 164/80 H 98 Laboratory Results all noted and reviewed
--- NOTE | 2020-04-15 22:28 | Electrocardiogram Report ---
Test Reason : Blood Pressure : / mmHG Vent. Rate : 106 BPM Atrial Rate : 106 BPM P-R Int : 134 ms QRS Dur : 080 ms QT Int : 338 ms P-R-T Axes : 074 064 -18 degrees QTc Int : 448 ms Sinus tachycardia Premature atrial complexes Nonspecific ST and T wave abnormality Abnormal ECG No previous ECGs available Confirmed by Shaggy Kapoor ([id number]) on 04/15/2020 10:28:42 PM Referred By: REFERRED SELF Confirmed By:Shaggy Kapoor
[2020-04-15] MEDS: HydrALAZINE HCL 20 MG/ML VIAL IV PRN (23:41)
--- NOTE | 2020-04-16 05:54 | Electrocardiogram Report ---
Test Reason : Blood Pressure : / mmHG Vent. Rate : 103 BPM Atrial Rate : 103 BPM P-R Int : 132 ms QRS Dur : 090 ms QT Int : 366 ms P-R-T Axes : 066 -23 047 degrees QTc Int : 479 ms Sinus tachycardia with Premature atrial complexes Nonspecific T wave abnormality Abnormal ECG When compared with ECG of 14-APR-2020 13:13, Questionable change in QRS axis Nonspecific T wave abnormality now evident in Lateral leads Confirmed by Shaggy Kapoor ([id number]) on 04/16/2020 5:54:16 AM Referred By: REFERRED SELF Confirmed By:Shaggy Kapoor
[2020-04-16 06:04] LABS: Basophils # (auto) 0.02 K/uL (0-0.2); Basophils % (auto) 0.2 %; Eosinophils # (auto) 0.18 K/uL (0-0.5); Eosinophils % (auto) 2.2 %; Hematocrit (blood only) 35.6 % (42-52); Hemoglobin 12.2 g/dL (14.0-18.0); Immature Granulocytes # (auto) 0.01 K/uL (0.00-0.02); Immature Granulocytes % (auto) 0.1 %; Lymphocytes # (auto) 2.48 K/uL (1.2-3.4); Lymphocytes % (auto) 30.4 %; Mean Corpuscular Hemoglobin 30.2 pg (25-34); Mean Corpuscular Hgb Conc 34.3 g/dL (32-36); Mean Corpuscular Volume 88.1 fL (80-100); Mean Platelet Volume 9.6 fL (7.4-10.4); Monocytes # (auto) 0.43 K/uL (0.11-0.59); Monocytes % (auto) 5.3 %; Neutrophils # (auto) 5.04 K/uL (1.4-6.5); Neutrophils % (auto) 61.8 %; Platelet Count 471 K/uL (130-400); Red Blood Count 4.04 M/uL (4.7-6.1); White Blood Count 8.16 K/uL (4.8-10.8)
[2020-04-16 06:39] LABS: BUN Creatinine Ratio 8.1 (10-20); Calcium 8.2 mg/dl (8.5-10.1); Creatinine Clr Calc Pharmacy 26.5 ml/min; Est GFR (African American) 21.6; Est GFR (Non-African American) 18.6
[2020-04-16] MEDS: ACETAMINOPHEN 325 MG TAB PO PRN (07:44)
[2020-04-16] MEDS: INSULIN ASPART 100 UNITS/ML 3 ML PEN SC SCH ×4 (08:10→22:34)
[2020-04-16] MEDS: BuPROPion XL 300 MG TABCR PO SCH (08:12)
[2020-04-16] MEDS: METOPROLOL SUCC 25MG EXT REL TAB PO SCH (08:12)
[2020-04-16] MEDS: AMLODIPINE BESYLATE 5 MG TAB PO SCH (08:12)
[2020-04-16] MEDS: FENOFIBRATE NANOCRYSTALLIZED 145 MG TABLET PO SCH (08:12)
[2020-04-16] MEDS: CHOLECALCIFEROL 1,000 UNITS 25 MCG TAB PO SCH (08:13)
[2020-04-16] MEDS: ATORVASTATIN 40 MG TAB PO SCH (08:13)
[2020-04-16] MEDS: INSULIN GLARGINE SOLOSTAR 100 UNITS/ML 3 ML PEN SC SCH (08:14)
[2020-04-16] MEDS: TRIAMCINOLONE ACET 0.1% CR 15 GM TUBE TOP SCH ×2 (08:14→22:34)
--- NOTE | 2020-04-16 09:23 | Nephrology Progress Note ---
Date of Service April 16, 2020 Assessment & Plan (1) Acute on chronic renal failure: creatinine 3.9 on presentation yesterday, down to 3.2 yesterday and up to 3.6 today w/ HTN urgency. Baseline 1.7. chemistries but for K ok; likely ischemic ATN in setting of HTN urgency, heavy nsaid use, preexisting nephrotic range proteinuria. 3L positive so should not need more IVF for now. 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 hold OP ARB for now (3) Hypertensive urgency: -cont CCB, BB and prn hydralazine yoly the latter as ordered; as OP on CCB 10 and losartan 100 and toprol xl 25; -control pain >> adn work with pt on nsaid based back pain mgt >changed toprol to coreg 12.5 mg bid -cont hydrlazine standing/prn and CCB -goal sBP remains 150-160s -monitor for sx at leats q4h (4) Hypokalemia: K 3.2 on 04/14 presentation to 3.1 today. had 10 mEq IV x 1 and 20 mEq po. still 3.0 today. had considered this to be from nsaids but if persistent much longer may need to consider other etiologies such as aldosteronism >start po K 40 mEq daily and daily bmp -ordered PAC/PRA levels for am with special circumstances >>>may also need 24 hr urine > will reeval Admission and Anticipated Discharge Date Admission Date: April 14, 2020 Subjective denies sob, n/v, edema, focal numbness/weakness, chest pain, voidign concerns. stable on going back pain Review of Systems Review of Systems: All systems reviewed & are unremarkable except as noted in HPI & below Physical Exam Constitutional: well developed and well nourished; no acute distress on RA maneuvers w/ care for exam Eyes: EOM intact bilaterally ENMT: Ears: no external ear abnormality Nose: no external nose abnormality Mouth: + dry oral mucous membranes Neck: no nuchal rigidity Respiratory: normal respiratory effort Auscultation: lungs clear to auscultation bilaterally and + diminished lung sounds Cardiovascular: RRR, no murmur, no edema Gastrointestinal (Abdomen): Inspection/Auscultation: normal bowel sounds Percussion/Palpation: abdomen soft; abdomen nontender Musculoskeletal: Extremities: strength 5/5 throughout Skin: no rashes, warm and dry Neurologic: summers, fluent speech, no tremor Psychiatric: Orientation: alert and oriented x 3 Speech: normal rate/rhythm/volume of speech Affect: + flat affect Results & Data ([facility]) Vital Signs (Past 12 Hours) Vital Signs Temp Pulse Pulse Resp BP Pulse Ox 04/16/20 07:51 36.6 C 101 H 18 171/90 H 97 04/16/20 04:00 36.6 C 93 H 16 163/81 H 96 04/15/20 23:34 36.8 C 85 16 183/91 H 99 04/15/20 23:00 91 H Laboratory Results 04/16/20 05:46 04/16/20 05:46
[2020-04-16] MEDS ORDERED: POTASSIUM CHLORIDE 20 MEQ TABCR PO SCH (09:30)
[2020-04-16] MEDS ORDERED: POTASSIUM CHLORIDE 20 MEQ TABCR PO STA (10:29)
--- NOTE | 2020-04-16 13:46 | Pharmacy Report ---
Pharmacy Glycemic Short Note 2 - Date of Service April 16, 2020 - Glycemic Short BSG Results (Last 24 hours): 04/15/20 04/15/20 04/16/20 16:04 20:21 05:46 Glucose 91 POC Glucose 219 H 127 H 04/16/20 04/16/20 07:19 11:33 Glucose POC Glucose 83 86 Outpatient Anti-diabetic Regimen: * Lantus 62 units SQ daily * Patient reports not taking (see below) * Glipizide 10mg PO BID (see below) * Linagliptin 5mg PO daily * A1c 9.7% on 04/15/20, which has trended down from 13% in Aug 2019 Risk Factors for Insulin Resistance: * Diet: Clears, Type 2 DM ASSESSMENT: 04/16 * AM fasting BSG below goal - will decrease Lantus dose * Post-prandial BSG at lunch remains below goal - will loosen Novolog parameters 04/15 * BSG's trended down nicely after more aggressive parameters initiated yesterday. * Now that severe hyperglycemia has resolved and BSG at/near goal since last night, will scale back on glycemic regimen to prevent further trend down * Novolog - loosen to very slightly looser than severe stress estimate * Lantus - very slightly less than severe stress estimate as full daily dose this AM. Was planning for supplemental Lantus based on BSG tonight, but will hold due to updates from Aruna Wylie (see below). 04/14 * 49 year old type 2 diabetic admitted for back pain and dizziness. Hyperglycemic on arrival, BSG 455mg/dl, reports taking Lantus this morning. * Patient's blood sugars down to 222mg/dl after 10 units IV regular insulin in ER and IV hydration * Oral agents are not recommended for inpatient use d/t drug interactions, changing PO intake, and difficulty titrating for acute hyper/hypoglycemia. Will hold and utilize SQ basal bolus insulin regimen which is the recommended regimen for inpatient glycemic control. * ADA & AACE recommend a goal blood sugar range 140-180 mg/dl for the majority of critically ill & non-critically ill patients. However, more stringent targets may be selected in individual cases. Will utilize more stringent goal of 110-140mg/dl based on patient age & comorbidities. Additionally, tighter glycemic control is warranted to facilitate wound/infection healing. PLAN FOR INPATIENT GLYCEMIC CONTROL: * Hold outpatient oral diabetes medications * Basal insulin * Lantus 30 units SQ this AM. 25-35 units SC tomorrow depending on trend in BSG * Bolus insulin * NovoLog per scale ACHS or Q6hrs while NPO * Goal Range: Low 110 mg/dL - High 140 mg/dL * Correction Factor: 25 mg/dL/unit * Nutritional / Prandial insulin per carb ratio of 1 unit per 9 grams CHO consumed Discharge considerations Background I spoke w Aruna Wylie (clinical informatics educator) on 04/15. She notes the patient's current outpatient glycemic regimen is different from previously reported: Metformin stopped, likely 2nd diarrhea ADR and possibly 2nd renal dysfunction. Also - glipizide is BID. Patient reported obtaining BSG's BID - usually ~100 mg/dL for AM fasting but 300-500 mg/dL at bedtime. Patient reports he eats some CHO with breakfast, rarely eats lunch, and significant CHO/usually takeout at dinner. Has an understanding about higher CHO items (potatoes, pizza, etc). He is willing to initiate Novolog but per Aruna would not be able to manage a specific CHO count regimen. He could manage to adjust dose based on relative CHO intake (no/low/high) Assessment/Recommendations * Adding Novolog TID with meals based on no/low/high CHO (usual for lunch/breakfast/dinner respectively) scale seems reasonable. Specific dosing depending on trend in inpatient BSG's and CHO consumption * Lantus will need to be adjusted down with addition of Novolog as I suspect the AM fasting in goal range is due to Lantus with significant overnight effects that cause BSG to drop from 300-500's at HS to 100 mg/dL in the morning * Continue to hold metformin due to intolerance and renal dysfunction (will need to be "discontinued" on discharge at it is listed as an active med although the patient reports not taking) * Stop glipizide for now due to initiation of Novolog and increased risk for hy poglycemia on the combination. May be able to be added back as an outpatient depending on trend in BSG's * Continue linagliptin
[2020-04-16] MEDS: carvediloL 12.5 MG TAB PO SCH (21:42)
[2020-04-17] MEDS: HydrALAZINE HCL 20 MG/ML VIAL IV PRN ×2 (07:47→20:11)
[2020-04-17] MEDS: INSULIN ASPART 100 UNITS/ML 3 ML PEN SC SCH ×4 (07:47→20:13)
[2020-04-17 08:17] LABS: Basophils # (auto) 0.03 K/uL (0-0.2); Basophils % (auto) 0.3 %; Eosinophils # (auto) 0.21 K/uL (0-0.5); Eosinophils % (auto) 2.3 %; Hematocrit (blood only) 41.1 % (42-52); Hemoglobin 14.1 g/dL (14.0-18.0); Immature Granulocytes # (auto) 0.02 K/uL (0.00-0.02); Immature Granulocytes % (auto) 0.2 %; Lymphocytes # (auto) 2.42 K/uL (1.2-3.4); Lymphocytes % (auto) 26.4 %; Mean Corpuscular Hemoglobin 30.5 pg (25-34); Mean Corpuscular Hgb Conc 34.3 g/dL (32-36); Mean Platelet Volume 9.6 fL (7.4-10.4); Monocytes # (auto) 0.45 K/uL (0.11-0.59); Monocytes % (auto) 4.9 %; Neutrophils # (auto) 6.04 K/uL (1.4-6.5); Neutrophils % (auto) 65.9 %; Platelet Count 510 K/uL (130-400); RDW Coefficient of Variation 14.3 % (11.5-14.5); RDW Standard Deviation 47.2 fL (36.4-46.3); Red Blood Count 4.62 M/uL (4.7-6.1); White Blood Count 9.17 K/uL (4.8-10.8)
[2020-04-17 08:41] LABS: BUN Creatinine Ratio 8.5 (10-20); Creatinine Clr Calc Pharmacy 28.6 ml/min; Est GFR (African American) 23.5; Est GFR (Non-African American) 20.3; Potassium 3.9 mmol/L (3.5-5.1)
[2020-04-17] MEDS: AMLODIPINE BESYLATE 5 MG TAB PO SCH (09:03)
[2020-04-17] MEDS: FENOFIBRATE NANOCRYSTALLIZED 145 MG TABLET PO SCH (09:03)
[2020-04-17] MEDS: BuPROPion XL 300 MG TABCR PO SCH (09:03)
[2020-04-17] MEDS: CHOLECALCIFEROL 1,000 UNITS 25 MCG TAB PO SCH (09:04)
[2020-04-17] MEDS: ATORVASTATIN 40 MG TAB PO SCH (09:05)
[2020-04-17] MEDS: carvediloL 12.5 MG TAB PO SCH ×2 (09:05→20:12)
[2020-04-17] MEDS: INSULIN GLARGINE SOLOSTAR 100 UNITS/ML 3 ML PEN SC SCH (09:06)
--- NOTE | 2020-04-17 09:11 | Hospitalist Progress Note ---
Date of Service April 17, 2020 Assessment & Plan (1) Dizziness: CVA ruled out CT head negative for acute process Brain MRI reviewed Neurology evaluation noted PT/OT evaluation noted Dizziness have resolved. Likely secondary to hyperglycemia and uncontrolled hypertension (2) Hyperglycemia Poorly controlled diabetes type 2 Last A1c taken in August 2019, was 13. A1c now 9.7 Pharmacy glycemic control recommendations noted Oral antidiabetics on hold due to MARCOS Currently on insulin glargin and meal time novolog Will likely need to be discharged on this especially if renal dysfunction persists Provided DM education (3)Hypertensive urgency Patient reports he did not take his medications the morning of admission Continue to hold losartan secondary to acute renal failure Metoprolol changed to coreg yesterday Monitor closely and optimize dosing for better BP management (4)Acute renal failure on CKD stage III Baseline BUN/creatinine is 23/1.7, GFR 40s to 50s Creatinine admission 3.9 Etiologies include possible ATN in setting of HTN urgency, NSAID induced. Admits to taking ibuprofen Advil almost every day Will follow nephrology recommendations (5) Hyperlipidemia Continue Lipitor (6) Depression Stable Continue bupropion (7) Chronic Back pain Continue Flexeril DVT prophylaxis - hep sq Patient wants to be allowed to go outside today. Discussed with RN. Ok to go outside under supervision Admission and Anticipated Discharge Date Admission Date: April 14, 2020 Subjective Patient seen and examined Denied any complaints today BP poorly controlled this morning Review of Systems Constitutional: no fever, no chills and no fatigue Eyes: no problem reported Ear, Nose, Mouth, Throat: no problem reported Respiratory: no cough and no dyspnea Cardiovascular: no chest pain, no chest pain with activity and no dyspnea at rest Gastrointestinal: no abdominal pain, no nausea and no vomiting Genitourinary: no dysuria, no urinary frequency and no urinary hesitancy Musculoskeletal: + back pain Neurologic: no dizziness and no headache(s) Physical Exam Constitutional: no acute distress Eyes: PERRL, conjunctivae normal, anicteric sclerae ENMT: external ear and nose normal, oropharynx normal Respiratory: normal respiratory effort, lungs clear to auscultation Cardiovascular: Rate/Rhythm: regular rate and regular rhythm Extremities: n o pedal edema S1 S2 Gastrointestinal (Abdomen): normal bowel sounds, soft, nontender, no hepatosplenomegaly Musculoskeletal: no cyanosis or clubbing, extremities motor strength 5/5 Neurologic: PERRL, EOMI, accommodation nl, no face palsy, no dysarthria Psychiatric: Orientation: alert and oriented x 3 Results & Data Results & Data ([facility]) Vital Signs (Past 12 Hours) Vital Signs Temp Pulse Resp BP Pulse Ox 04/17/20 07:30 36.8 C 83 16 173/78 H 98 04/17/20 00:00 36.8 C 77 16 139/80 98 04/16/20 23:06 36.9 C 84 16 152/84 H 98 Laboratory Results Laboratory Results - last 24 hr 04/16/20 04/16/20 04/16/20 11:33 16:13 20:01 WBC RBC Hgb Hct MCV MCH MCHC RDW Std Deviation RDW Coeff of Luz Plt Count MPV Immature Gran % (Auto) Neut % (Auto) Lymph % (Auto) [place] % (Auto) Eos % (Auto) Baso % (Auto) Neut # (Auto) Lymph # (Auto) [place] # (Auto) Eos # (Auto) Baso # (Auto) Immature Gran # (Auto) Sodium Potassium Chloride Carbon Dioxide Anion Gap BUN Creatinine Est Cr Clr Drug Dosing Est GFR ( Amer) Est GFR (Non-Af Amer) BUN/Creatinine Ratio Glucose POC Glucose 86 87 103 H Calcium Renin Activity Aldosterone 04/17/20 04/17/20 04/17/20 07:05 08:01 08:01 WBC 9.17 RBC 4.62 L Hgb 14.1 Hct 41.1 L MCV 89.0 MCH 30.5 MCHC 34.3 RDW Std Deviation 47.2 H RDW Coeff of Luz 14.3 Plt Count 510 H MPV 9.6 Immature Gran % (Auto) 0.2 Neut % (Auto) 65.9 Lymph % (Auto) 26.4 [place] % (Auto) 4.9 Eos % (Auto) 2.3 Baso % (Auto) 0.3 Neut # (Auto) 6.04 Lymph # (Auto) 2.42 [place] # (Auto) 0.45 Eos # (Auto) 0.21 Baso # (Auto) 0.03 Immature Gran # (Auto) 0.02 Sodium 139 Potassium 3.9 D Chloride 111 H Carbon Dioxide 21 Anion Gap 7.0 BUN 29 H Creatinine 3.37 H Est Cr Clr Drug Dosing 28.6 Est GFR ( Amer) 23.5 Est GFR (Non-Af Amer) 20.3 BUN/Creatinine Ratio 8.5 L Glucose 92 POC Glucose 84 Calcium 9.0 Renin Activity Aldosterone 04/17/20 08:01 WBC RBC Hgb Hct MCV MCH MCHC RDW Std Deviation RDW Coeff of Luz Plt Count MPV Immature Gran % (Auto) Neut % (Auto) Lymph % (Auto) [place] % (Auto) Eos % (Auto) Baso % (Auto) Neut # (Auto) Lymph # (Auto) [place] # (Auto) Eos # (Auto) Baso # (Auto) Immature Gran # (Auto) Sodium Potassium Chloride Carbon Dioxide Anion Gap BUN Creatinine Est Cr Clr Drug Dosing Est GFR ( Amer) Est GFR (Non-Af Amer) BUN/Creatinine Ratio Glucose POC Glucose Calcium Renin Activity Pending Aldosterone Pending
[2020-04-17] MEDS: SODIUM CHLORIDE 1 GM TABLET PO SCH ×4 (10:16→20:13)
[2020-04-17] MEDS: TRIAMCINOLONE ACET 0.1% CR 15 GM TUBE TOP SCH ×2 (10:16→20:13)
[2020-04-17] MEDS: HEPARIN SOD 5,000 UNIT/0.5 ML VIAL SQ SCH (20:12)
--- NOTE | 2020-04-17 20:30 | Nephrology Progress Note ---
Date of Service April 17, 2020 Assessment & Plan (1) Acute on chronic renal failure: Stage 2 MARCOS: creatinine 3.9 on presentation yesterday, peaked 04/16 at 3.6 w/ HTN urgency. Baseline 1.7. chemistries but for K ok; likely ischemic ATN in setting of HTN urgency, heavy nsaid use, preexisting nephrotic range proteinuria. 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 hold OP ARB for now (3) Hypertensive urgency: -cont CCB, BB and prn hydralazine yoly the latter as ordered; as OP on CCB 10 and losartan 100 and toprol xl 25; -control pain >> adn work with pt on nsaid based back pain mgt >changed toprol to coreg 12.5 mg bid -cont hydrlazine standing/prn and CCB -goal sBP remains 150-160s -monitor for sx at least q4h (4) Hypokalemia: K 3.2 on 04/14 presentation to 3.1 today. had 10 mEq IV x 1 and 20 mEq po.. had considered this to be from nsaids but if persistent much longer may need to consider other etiologies such as aldosteronism >repleted K po w/ standing dose -ordered PAC/PRA levels for 04/17 am with special circumstances >>>started salt load and will do 24 hr urine for na, creat, karla, K, cortisol >low threshold for adrenal imaging > challenging though w/ MARCOS Admission and Anticipated Discharge Date Admission Date: April 14, 2020 Subjective cont to deny sx; anxious for d/c; Review of Systems Constitutional: fatigue Ear, Nose, Mouth, Throat: + dizziness; no tinnitus Neurologic: denies focal numbness/weakness Physical Exam Constitutional: well developed and well nourished; no acute distress Eyes: EOM intact bilaterally ENMT: Ears: no external ear abnormality Nose: no external nose abnormality Mouth: + dry oral mucous membranes Neck: no nuchal rigidity Respiratory: normal respiratory effort Auscultation: lungs clear to auscultation bilaterally and + diminished lung sounds Cardiovascular: RRR, no murmur, no edema Gastrointestinal (Abdomen): Inspection/Auscultation: normal bowel sounds Percussion/Palpation: abdomen soft; abdomen nontender Musculoskeletal: Extremities: strength 5/5 throughout Skin: no rashes, warm and dry Psychiatric: Orientation: alert and oriented x 3 Speech: normal rate/rhythm/volume of speech Affect: + flat affect Results & Data ([facility]) Vital Signs (Past 12 Hours) Vital Signs Temp Pulse Pulse Resp BP BP Pulse Ox 04/17/20 19:38 36.7 C 92 H 19 162/92 H 100 04/17/20 15:51 86 04/17/20 15:46 36.6 C 82 19 152/83 H 98 04/17/20 11:33 36.6 C 86 16 155/94 H 98 04/17/20 09:02 167/75 H Laboratory Results 04/17/20 08:01 04/17/20 08:01
[2020-04-18] MEDS: SODIUM CHLORIDE 1 GM TABLET PO SCH ×6 (01:23→21:48)
[2020-04-18] MEDS: HydrALAZINE HCL 20 MG/ML VIAL IV PRN (03:45)
[2020-04-18] MEDS: CHOLECALCIFEROL 1,000 UNITS 25 MCG TAB PO SCH (08:30)
[2020-04-18] MEDS: BuPROPion XL 300 MG TABCR PO SCH (08:30)
[2020-04-18] MEDS: AMLODIPINE BESYLATE 5 MG TAB PO SCH (08:30)
[2020-04-18] MEDS: FENOFIBRATE NANOCRYSTALLIZED 145 MG TABLET PO SCH (08:30)
[2020-04-18] MEDS: ATORVASTATIN 40 MG TAB PO SCH (08:30)
[2020-04-18] MEDS: carvediloL 12.5 MG TAB PO SCH (08:30)
[2020-04-18] MEDS: TRIAMCINOLONE ACET 0.1% CR 15 GM TUBE TOP SCH ×2 (08:31→21:47)
[2020-04-18] MEDS: HEPARIN SOD 5,000 UNIT/0.5 ML VIAL SQ SCH ×2 (08:31→21:51)
[2020-04-18] MEDS: INSULIN GLARGINE SOLOSTAR 100 UNITS/ML 3 ML PEN SC SCH (08:32)
[2020-04-18] MEDS: INSULIN ASPART 100 UNITS/ML 3 ML PEN SC SCH ×4 (08:32→21:52)
[2020-04-18 08:36] LABS: Basophils # (auto) 0.02 K/uL (0-0.2); Basophils % (auto) 0.3 %; Eosinophils # (auto) 0.13 K/uL (0-0.5); Hematocrit (blood only) 35.7 % (42-52); Hemoglobin 11.9 g/dL (14.0-18.0); Immature Granulocytes # (auto) 0.02 K/uL (0.00-0.02); Immature Granulocytes % (auto) 0.3 %; Lymphocytes # (auto) 2.02 K/uL (1.2-3.4); Mean Corpuscular Hemoglobin 29.7 pg (25-34); Mean Corpuscular Hgb Conc 33.3 g/dL (32-36); Mean Platelet Volume 9.7 fL (7.4-10.4); Monocytes # (auto) 0.39 K/uL (0.11-0.59); Neutrophils # (auto) 3.94 K/uL (1.4-6.5); Neutrophils % (auto) 60.4 %; Platelet Count 450 K/uL (130-400); RDW Coefficient of Variation 14.3 % (11.5-14.5); RDW Standard Deviation 47.2 fL (36.4-46.3); Red Blood Count 4.01 M/uL (4.7-6.1); White Blood Count 6.52 K/uL (4.8-10.8)
[2020-04-18 09:12] LABS: BUN Creatinine Ratio 10.8 (10-20); Calcium 8.9 mg/dl (8.5-10.1); Creatinine Clr Calc Pharmacy 29.6 ml/min; Est GFR (African American) 24.5; Est GFR (Non-African American) 21.2; Potassium 4.3 mmol/L (3.5-5.1)
--- NOTE | 2020-04-18 09:33 | Nephrology Progress Note ---
Date of Service April 18, 2020 Assessment & Plan (1) Acute on chronic renal failure: Stage 2 MARCOS: creatinine 3.9 at peak on presentation 04/14, slight downtrend today to 3.3. Baseline 1.7. chemistries but for K ok; likely ischemic ATN in setting of HTN urgency, heavy nsaid use, preexisting nephrotic range proteinuria. 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 hold OP ARB for now (3) Hypertensive urgency: -cont CCB, BB and prn hydralazine yoly the latter as ordered; as OP on CCB 10 and losartan 100 and toprol xl 25; -control pain >> adn work with pt on nsaid based back pain mgt >cont coreg 12.5 mg bid > could increase as tolerated -cont hydrlazine standing/prn and CCB -goal sBP remains 150-160s -monitor for sx at least q4h (4) Hypokalemia: K 3.2 on 04/14 presentation to 4.3 today. had considered this to be from nsaids but persistent >> need to consider other etiologies such as aldosteronism >repleted K po w/ standing dose- at goal today -ordered PAC/PRA levels for 9/30 am with special circumstances >>>cont salt load and 24 hr urine for na, creat, karla, K, cortisol >>>>>for adrenal imaging, pls order CT abdomen/pelvis non con and ask specifically for comment on [place] values on any adrenal masses if present Admission and Anticipated Discharge Date Admission Date: April 14, 2020 Subjective no interval events; gearing up to go outside; 24 hr urine underway Review of Systems Ear, Nose, Mouth, Throat: no tinnitus Neurologic: denies focal numbness/weakness Physical Exam Constitutional: well developed and well nourished; no acute distress Eyes: EOM intact bilaterally ENMT: Ears: no external ear abnormality Nose: no external nose abnormality Mouth: + dry oral mucous membranes Neck: no nuchal rigidity Respiratory: normal respiratory effort Auscultation: lungs clear to auscult ation bilaterally and + diminished lung sounds Cardiovascular: RRR, no murmur, no edema Gastrointestinal (Abdomen): Inspection/Auscultation: normal bowel sounds Percussion/Palpation: abdomen soft; abdomen nontender Musculoskeletal: Extremities: strength 5/5 throughout Skin: no rashes, warm and dry Psychiatric: Orientation: alert and oriented x 3 Speech: normal rate/rhythm/volume of speech Affect: + flat affect Results & Data ([facility]) Vital Signs (Past 12 Hours) Vital Signs Temp Pulse Resp BP BP Pulse Ox 04/18/20 07:53 36.7 C 88 19 166/75 H 98 04/18/20 04:00 36.6 C 88 16 173/89 H 97 04/17/20 23:25 36.4 C L 87 16 128/67 95 Laboratory Results 04/18/20 08:23 04/18/20 08:23
[2020-04-18] MEDS ORDERED: carvediloL 12.5 MG TAB PO ONE (09:44)
--- NOTE | 2020-04-18 10:10 | Hospitalist Progress Note ---
Date of Service April 18, 2020 Assessment & Plan (1) Dizziness: CVA ruled out CT head negative for acute process Brain MRI reviewed Neurology evaluation noted PT/OT evaluation noted Dizziness have resolved. Likely secondary to hyperglycemia and uncontrolled hypertension (2) Hyperglycemia Poorly controlled diabetes type 2 Last A1c taken in August 2019, was 13. A1c now 9.7 Pharmacy glycemic control recommendations noted Oral antidiabetics on hold due to MARCOS Currently on insulin glargin and meal time novolog Plan to discharge on insulin regimen Provided DM education (3)Hypertensive urgency Patient reports he did not take his medications the morning of admission Continue to hold losartan secondary to acute renal failure Metoprolol changed to coreg Coreg increased to 25mg this AM as BP is still very poorly controlled Continue amlodipine 10mg daily Monitor Bp Also had hypokalemia on admission. Being worked up for other causes of hypertension Discussed case with School Age Teacher. Get CT abd/p w/o contrast per School Age Teacher recommendations (4)Acute renal failure on CKD stage III Baseline BUN/creatinine is 23/1.7, GFR 40s to 50s Creatinine admission 3.9. Trending down slowly Etiologies include possible ATN in setting of HTN urgency, NSAID induced. Admits to taking ibuprofen Advil almost every day 24H urine collection in process Will follow nephrology recommendations (5) Hyperlipidemia Continue Lipitor (6) Depression Stable Continue bupropion (7) Chronic Back pain Continue Flexeril DVT prophylaxis - hep sq Admission and Anticipated Discharge Date Admission Date: April 14, 2020 Subjective Patient seen and examined. Denied any complaints BP still very poorly controlled Denied any chest pain, SOB, CHANEY, cough Dizziness resolved Denied any palpitation Denied any headache Denied any fevers, chills, nausea, vomiting, abd pain, diarrhea Physical Exam Constitutional: no acute distress Eyes: PERRL, conjunctivae normal, anicteric sclerae ENMT: external ear and nose normal, oropharynx normal Respiratory: normal respiratory effort, lungs clear to auscultation Cardiovascular: Rate/Rhythm: regular rate and regular rhythm Extremities: no pedal edema Gastrointestinal (Abdomen): normal bowel sounds, soft, nontender, no hepatosplenomegaly Musculoskeletal: no cyanosis or clubbing, extremities motor strength 5/5 Neurologic: PERRL, EOMI, accommodation nl, no face palsy, no dysarthria Psychiatric: Orientation: alert and oriented x 3 Results & Data Results & Data ([facility]) Vital Signs (Past 12 Hours) Vital Signs Temp Pulse Pulse Resp BP BP Pulse Ox 04/18/20 08:30 103 H 04/18/20 07:53 36.7 C 88 19 166/75 H 98 04/18/20 04:00 36.6 C 88 16 173/89 H 97 04/17/20 23:25 36.4 C L 87 16 128/67 95 Laboratory Results Laboratory Results - last 24 hr 04/17/20 04/17/20 04/17/20 11:07 16:21 19:51 WBC RBC Hgb Hct MCV MCH MCHC RDW Std Deviation RDW Coeff of Luz Plt Count MPV Immature Gran % (Auto) Neut % (Auto) Lymph % (Auto) [place] % (Auto) Eos % (Auto) Baso % (Auto) Neut # (Auto) Lymph # (Auto) [place] # (Auto) Eos # (Auto) Baso # (Auto) Immature Gran # (Auto) Sodium Potassium Chloride Carbon Dioxide Anion Gap BUN Creatinine Est Cr Clr Drug Dosing Est GFR ( Amer) Est GFR (Non-Af Amer) BUN/Creatinine Ratio Glucose POC Glucose 186 H 171 H 120 H Calcium 04/18/20 04/18/20 04/18/20 07:42 08:23 08:23 WBC 6.52 RBC 4.01 L Hgb 11.9 L Hct 35.7 L MCV 89.0 MCH 29.7 MCHC 33.3 RDW Std Deviation 47.2 H RDW Coeff of Luz 14.3 Plt Count 450 H MPV 9.7 Immature Gran % (Auto) 0.3 Neut % (Auto) 60.4 Lymph % (Auto) 31.0 [place] % (Auto) 6.0 Eos % (Auto) 2.0 Baso % (Auto) 0.3 Neut # (Auto) 3.94 Lymph # (Auto) 2.02 [place] # (Auto) 0.39 Eos # (Auto) 0.13 Baso # (Auto) 0.02 Immature Gran # (Auto) 0.02 Sodium 139 Potassium 4.3 Chloride 111 H Carbon Dioxide 20 L Anion Gap 7.0 BUN 35 H Creatinine 3.25 H Est Cr Clr Drug Dosing 29.6 Est GFR ( Amer) 24.5 Est GFR (Non-Af Amer) 21.2 BUN/Creatinine Ratio 10.8 Glucose 161 H POC Glucose 105 H Calcium 8.9
--- NOTE | 2020-04-18 10:42 | CT Scan Report ---
CT SCAN OF THE ABDOMEN WITHOUT IV CONTRAST CLINICAL HISTORY: Adrenal nodule. COMPARISON STUDY: Renal ultrasound dated 04/14/2020. TECHNIQUE: CT scan of the abdomen is performed from the lung bases to the pelvic inlet. Images are re viewed in the axial, sagittal, and coronal planes. IV contrast was not administered for this examinat ion. A dose lowering technique was utilized adhering to the principles of ALARA. CT DOSE: 677.93 mGy.cm FINDINGS: Lung bases: The heart is normal in size and without pericardial effusion. There are trace pleural eff usions. Scattered calcified granulomas are observed. The lung bases are otherwise clear. There is a s mall hiatal hernia. Liver: The unenhanced liver is normal in size, contour, and attenuation. There is no intrahepatic gilbert iary ductal dilatation. Gallbladder: Postoperative change is suggested involving the gallbladder. There is a gallbladder remn ant versus dilated cystic duct remnant. Spleen: Normal in size and attenuation. Pancreas: The unenhanced pancreas is grossly unremarkable. Adrenal glands: Unremarkable. Kidneys: The unenhanced kidneys are normal in size and without hydronephrosis. There are no renal makayla culi identified. There is no evidence of contour deforming renal mass lesion. Abdominal vasculature: The abdominal aorta is normal in course and caliber. Bowel: There is no evidence of bowel obstruction. Mild fecal retention is seen in the colon. The appe ndix is well-visualized and normal. Peritoneum: There is no intraperitoneal free air or abdominal ascites. Lymphadenopathy: None. Skeletal structures: Large posterior disc osteophyte complexes are seen at L1-L2 and L5-S1. These con tribute to significant acquired compromise of the central canal. No lytic or blastic lesions are seen . Soft tissues: There is body wall edema. IMPRESSION: 1. No adrenal nodule is identified as clinically queried. 2. Body wall edema and trace pleural effusions. 3. No acute infectious or inflammatory findings are identified in the abdomen. 4. Additional findings as above. ACT 112: Negative or not required by law. Electronically signed by: Niko Mark M.D. 04/18/2020 10:41 AM
[2020-04-18] MEDS: carvediloL 25 MG TAB PO SCH (21:51)
[2020-04-18 22:14] LABS: Urine Potassium 15.6 mmol/L
[2020-04-19 06:59] LABS: Basophils # (auto) 0.03 K/uL (0-0.2); Basophils % (auto) 0.4 %; Eosinophils # (auto) 0.15 K/uL (0-0.5); Eosinophils % (auto) 2.2 %; Hematocrit (blood only) 33.8 % (42-52); Hemoglobin 11.2 g/dL (14.0-18.0); Immature Granulocytes # (auto) 0.01 K/uL (0.00-0.02); Immature Granulocytes % (auto) 0.1 %; Lymphocytes # (auto) 2.37 K/uL (1.2-3.4); Lymphocytes % (auto) 35.1 %; Mean Corpuscular Hemoglobin 29.6 pg (25-34); Mean Corpuscular Hgb Conc 33.1 g/dL (32-36); Mean Corpuscular Volume 89.4 fL (80-100); Mean Platelet Volume 9.7 fL (7.4-10.4); Monocytes # (auto) 0.45 K/uL (0.11-0.59); Monocytes % (auto) 6.7 %; Neutrophils # (auto) 3.75 K/uL (1.4-6.5); Neutrophils % (auto) 55.5 %; Platelet Count 444 K/uL (130-400); RDW Standard Deviation 46.5 fL (36.4-46.3); Red Blood Count 3.78 M/uL (4.7-6.1); White Blood Count 6.76 K/uL (4.8-10.8)
[2020-04-19 07:40] LABS: BUN Creatinine Ratio 11.6 (10-20); Calcium 8.9 mg/dl (8.5-10.1); Creatinine Clr Calc Pharmacy 28.8 ml/min; Est GFR (African American) 23.7; Est GFR (Non-African American) 20.5; Potassium 4.4 mmol/L (3.5-5.1)
[2020-04-19] MEDS: CHOLECALCIFEROL 1,000 UNITS 25 MCG TAB PO SCH (08:13)
[2020-04-19] MEDS: HEPARIN SOD 5,000 UNIT/0.5 ML VIAL SQ SCH (08:13)
[2020-04-19] MEDS: AMLODIPINE BESYLATE 5 MG TAB PO SCH (08:13)
[2020-04-19] MEDS: carvediloL 25 MG TAB PO SCH (08:13)
[2020-04-19] MEDS: ATORVASTATIN 40 MG TAB PO SCH (08:13)
[2020-04-19] MEDS: INSULIN ASPART 100 UNITS/ML 3 ML PEN SC SCH (08:14)
[2020-04-19] MEDS: INSULIN GLARGINE SOLOSTAR 100 UNITS/ML 3 ML PEN SC SCH (08:15)
[2020-04-19] MEDS: TRIAMCINOLONE ACET 0.1% CR 15 GM TUBE TOP SCH (08:17)
[2020-04-19] MEDS: FENOFIBRATE NANOCRYSTALLIZED 145 MG TABLET PO SCH (08:18)
[2020-04-19] MEDS: BuPROPion XL 300 MG TABCR PO SCH (08:18)
--- NOTE | 2020-04-19 09:27 | Nephrology Progress Note ---
Date of Service April 19, 2020 Assessment & Plan (1) Acute on chronic renal failure: Stage 2 MARCOS: creatinine 3.9 at peak on presentation 04/14, slight downtrend today to 3.3. Baseline 1.7. chemistries but for K ok, though K has rebounded without supplements; likely ischemic ATN in setting of HTN urgency, heavy nsaid use, preexisting nephrotic range proteinuria. other possibility is progression of CKD. 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; high risk to need in his lifetime, possibly w/in next few years and sooner if this is CKD progression -may relate to nephrotic syndrome and /or nsaid use; other etiologies possible >>d/c medications as below for HTN; agree w/ changing to insulin rather than po DM meds >>recommend MTM follow up for HTN, DM mgt MACIE after d/c (may need to be ordered by PCP and (for HTN) by nephro) >>needs to follow up with hospital discharge appt with any available nephro provider 7-10 days after discharge in [facility]; pt amenable >>needs BMP in about 3-5 days pls Care coordinated wt Dr Bateman and discussed with patient (2) Proteinuria, unspecified: hx of nephrotic range proteinuria prior to admission; certain to be worse now with nsaids on board. hold OP ARB for now (3) Hypertensive urgency: Likeliest etiology here is from nephrotic syndrome, though secondary work- up is in process ; vol OL on imaging and exam though no sx -cont coreg 25 mg bid at d/c in lieu of metoprolol; cont amlodipine 10 mg at d/c; cont to HOLD losartan d/t MARCOS; would also start him on hydralazine 50 mg bid at d/c AND lasix 40 mg TWO daily doses at least 4h apart; did d/w pt importance of taking lasix 40 mg TWO doses NOT 80 mg one dose to start -control pain >> and work with pt on NON nsaid based back pain mgt -goal sBP remains 150-160s but ultimately will want him less than 130 (4) Hypokalemia: K 3.2 on 04/14 presentation to 4.3 today. had considered this to be from nsaids but was somewhat persistent >> need to consider other etiologies such as aldosteronism, though no adrenal nodules found on imaging urine/ serum evaluation in progress and can be finalized at follow-up appointment. >repleted K po -- had massive dose on 04/16 (80 mEq) and to date this has held/no further K needed -ordered PAC/PRA levels for 04/17 am with special circumstances--follow-up as outpatient >>>cont salt load and 24 hr urine for na, creat, karla, K, cortisol--in process; follow-up as outpatient >>>>> Neither masses nor hyperplasia seen on adrenal imaging Admission and Anticipated Discharge Date Admission Date: April 14, 2020 Subjective no interval events; anxious for d/c; denies sob, chest pain, edema, new vooiding concerns > endorses longstanding once hourly nocturia; denies digestive concerns Review of Systems Review of Systems: All systems reviewed & are unremarkable except as noted in HPI & below Physical Exam Constitutional: well developed and well nourished; no acute distress Eyes: EOM intact bilaterally ENMT: Ears: no external ear abnormality Nose: no external nose abnormality Mouth: + dry oral mucous membranes Neck: no nuchal rigidity Respiratory: normal respiratory effort Auscultation: lungs clear to auscultation bilaterally and + diminished lung sounds Cardiovascular: Rate/Rhythm: regular rate and regular rhythm Extremities: + edema (2+ LLE and 1+ RLE) Gastrointestinal (Abdomen): Inspection/Auscultation: normal bowel sounds Percussion/Palpation: abdomen soft; abdomen nontender Musculoskeletal: Extremities: strength 5/5 throughout Skin: no rashes, warm and dry Psychiatric: Orientation: alert and oriented x 3 Speech: normal rate/rhythm/volume of speech Affect: + flat affect Results & Data ([facility]) Vital Signs (Past 12 Hours) Vital Signs Temp Pulse Resp BP BP Pulse Ox 04/19/20 08:00 37.0 C 89 20 164/85 H 97 04/19/20 04:00 36.9 C 88 18 150/80 H 99 04/19/20 00:00 36.4 C L 79 16 132/77 99 04/18/20 23:51 36.8 C 73 18 150/77 H 98 Laboratory Results 04/19/20 06:28 04/19/20 06:[address] abd/pelvis non con Lung bases: The heart is normal in size and without pericardial effusion. There are trace pleural effusions. Scattered calcified granulomas are observed. The lung bases are otherwise clear. There is a small hiatal hernia. Liver: The unenhanced liver is normal in size, contour, and attenuation. There is no intrahepatic biliary ductal dilatation. Gallbladder: Postoperative change is suggested involving the gallbladder. There is a gallbladder remnant versus dilated cystic duct remnant. Spleen: Normal in size and attenuation. Pancreas: The unenhanced pancreas is grossly unremarkable. Adrenal glands: Unremarkable. Kidneys: The unenhanced kidneys are normal in size and without hydronephrosis. There are no renal calculi identified. There is no evidence of contour deforming renal mass lesion. Abdominal vasculature: The abdominal aorta is normal in course and caliber. Bowel: There is no evidence of bowel obstruction. Mild fecal retention is seen in the colon. The appendix is well-visualized and normal. Peritoneum: There is no intraperitoneal free air or abdominal ascites. Lymphadenopathy: None. Skeletal structures: Large posterior disc osteophyte complexes are seen at L1-L2 and L5-S1. These contribute to significant acquired compromise of the central canal. No lytic or blastic lesions are seen. Soft tissues: There is body wall edema. IMPRESSION: 1. No adrenal nodule is identified as clinically queried. 2. Body wall edema and trace pleural effusions. 3. No acute infectious or inflammatory findings are identified in the abdomen. 4. Additional findings as above.
--- NOTE | 2020-04-19 09:37 | Discharge Summary ---
Date of Service April 19, 2020 Admission HPI Per Admitting Provider 49-year-old male with history of diabetes, hypertension, dyslipidemia Presenting with dizziness x2 months. History obtained from patient and his fiance at the bedside. Patient has been having dizziness x2 months described as room spinning around him/lightheadedness/loss of balance. He reports that he staggers to the sides when he walks. Denies any other focal neurologic deficits. Patient also reports being compliant with medications. At the ER, blood pressure was found to be systolic 220s, blood glucose levels in the 400s. CT head: Negative for acute CVA On exam, patient seen resting in bed, comfortable, not in distress. Denies active dizziness, shortness of breath, palpitations, chest pain, headache, nausea or vomiting. No other symptoms Admission Exam Per Admitting Provider General- oriented x 3, not in distress, speaks in sentences with no effort or accessory muscle use Head- atraumatic Eyes- PERRL, EOMI, anicteric ENT- oropharynx clear Neck- supple, no JVD, no adenopathy, no thyromegaly; carotids +2/2, no bruits appreciated Lungs- clear to auscultation bilaterally, no rales/wheezes Heart- normal rate, regular rhythm; no murmur, no gallop, no rub appreciated Abdomen- normal bowel sounds, nondistended, soft, nontender, no masses or hepatosplenomegaly Extremities- no pretibial edema, no calf tenderness; peripheral pulses intact Neuro- alert, oriented x 3; CN 2-12 grossly intact; motor 5/5 bilaterally;sensation 100% on all extremities; no other gross focal neurologic deficits Skin- warm & dry Principal Diagnosis Hypertensive urgency Acute on chronic kidney disease DM2 Dizziness Discharge Exam Constitutional no acute distress Eyes PERRL, conjunctivae normal, anicteric sclerae ENMT external ear and nose normal, oropharynx normal Respiratory normal respiratory effort, lungs clear to auscultation Cardiovascular Rate/Rhythm: regular rate and regular rhythm Extremities: no pedal edema Gastrointestinal (Abdomen) normal bowel sounds, soft, nontender, no hepatosplenomegaly Musculoskeletal no cyanosis or clubbing, extremities motor strength 5/5 Neurologic PERRL, EOMI, accommodation nl, no face palsy, no dysarthria Psychiatric Orientation: alert and oriented x 3 Discharge Data Allergies Allergy/AdvReac Type Severity Reaction Status Date / Time No Known Allergies Allergy Unverified 04/14/20 14:13 Consultations 04/14/20 15:33 ED Decision to Admit Stat 04/14/20 18:13 Consult Nephrology Routine 04/15/20 09:51 Consult Neurology Routine Ordered Studies 04/14/20 13:18 CT head/brain wo con Stat No acute intracranial hemorrhage, midline shift or mass effect is present. The ventricular system is unremarkable. The basilar cisterns are patent. No extra- axial collections are present. There are no findings to suggest acute dural sinus thrombosis or acute territorial infarct. No significant calvarial abnormalities are present. Visualized portions of the sinuses are clear. A small amount of fluid within the bilateral mastoid air cells is noted. IMPRESSION: 1. No acute intracranial findings. 2. Small amount of fluid within the bilateral mastoid air cells. 04/14/20 18:13 MR brain wo con Stat There are no areas of restricted diffusion to suggest acute infarction. The midline structures are intact. The paranasal sinuses are clear. Trace bilateral mastoid effusions. A few scattered punctate foci of T2 hyperintensity seen within the periventricular and subcortical white matter. These are nonspecific but favor mild microvascular ischemic change. The ventricles and sulci are within normal limits for age. There is no mass, hematoma, midline shift. The major vascular flow-voids at the skull base are well maintained. IMPRESSION: 1. No acute intracranial abnormality. 2. A few scattered foci of T2 hyperintensity seen within the periventricular and subcortical white matter are nonspecific but favor mild microvascular ischemic change. Migraines, Lyme disease, or a demyelinating disease is also have a similar appearance in the appropriate clinical setting. 3. Trace bilateral mastoid effusions are again noted US renal/blad retro comp Routine Kidneys: The kidneys are normal in size and echotexture. The right kidney measures 11.6 x 5.4 x 6.9 cm and the left kidney measures 10.1 x 6.9 x 5.7 cm. There is no hydronephrosis. No shadowing renal calculi are identified. There is no sonographic evidence of contour deforming renal mass lesion. No perinephric fluid is identified. Bladder: The prostate gland is mildly enlarged. The bladder is normal in appearance. Bilateral ureteral jets were seen. Upper abdomen: Survey images of the liver show evidence of hepatic steatosis. IMPRESSION: Unremarkable sonographic assessment of the kidneys and bladder. 04/18/20 09:40 CT abdomen wo con Urgent Lung bases: The heart is normal in size and without pericardial effusion. There are trace pleural effusions. Scattered calcified granulomas are observed. The lung bases are otherwise clear. There is a small hiatal hernia. Liver: The unenhanced liver is normal in size, contour, and attenuation. There is no intrahepatic biliary ductal dilatation. Gallbladder: Postoperative change is suggested involving the gallbladder. There is a gallbladder remnant versus dilated cystic duct remnant. Spleen: Normal in size and attenuation. Pancreas: The unenhanced pancreas is grossly unremarkable. Adrenal glands: Unremarkable. Kidneys: The unenhanced kidneys are normal in size and without hydronephrosis. There are no renal calculi identified. There is no evidence of contour deforming renal mass lesion. Abdominal vasculature: The abdominal aorta is normal in course and caliber. Bowel: There is no evidence of bowel obstruction. Mild fecal retention is seen in the colon. The appendix is well-visualized and normal. Peritoneum: There is no intraperitoneal free air or abdominal ascites. Lymphadenopathy: None. Skeletal structures: Large posterior disc osteophyte complexes are seen at L1-L2 and L5-S1. These contribute to significant acquired compromise of the central canal. No lytic or blastic lesions are seen. Soft tissues: There is body wall edema. IMPRESSION: 1. No adrenal nodule is identified as clinically queried. 2. Body wall edema and trace pleural effusions. 3. No acute infectious or inflammatory findings are identified in the abdomen. 4. Additional findings as above. Diabetes Follow up Diabetes Follow-up Needed for HgbA1c >9% Hospital Course (1) Dizziness: CVA ruled out CT head negative for acute process Brain MRI reviewed Neurology evaluation noted PT/OT evaluation noted Dizziness have resolved. Likely secondary to hyperglycemia and uncontrolled hypertension (2) Hyperglycemia Poorly controlled diabetes type 2 Last A1c taken in August 2019, was 13. A1c now 9.7 Blood glucose controlled inpatient with insulin Provided DM education Metformin and glipizide discontinued due to MARCOS on CKD Stop taking linagliptin for now Lantus reduced to 25Units as patient was not requiring as much as 62U he reported he was taking at home Started on novolog 5Units TID AC Arrangements made to follow up with [facility] for diabetes management Advised to keep blood glucose log and follow up with PCP (3)Hypertensive urgency Patient reports he did not take his medications the morning of admission Losartan discontinued Metoprolol changed to coreg 25mg BID Started hydralazine 50mg BID Also had further work up for other causes of hypertension as he also had hypokalemia on admission. Continue amlodipine 10mg daily (4)Acute renal failure on CKD stage III Baseline BUN/creatinine is 23/1.7, GFR 40s to 50s Creatinine admission 3.9. Creatinine still in the 3s Etiologies include possible ATN in setting of HTN urgency, NSAID induced. Admits to taking ibuprofen Advil almost every day Comanaged with Head Stock Operator Advised to stop all NSAIDS Metformin, glipizide, losartan discontinued as mentioned above To do BMP in 3 days and follow up result with PCP and senior recruitment consultant To follow up Nephrology office in 1 week (5) Hyperlipidemia Continue Lipitor (6) Depression Stable Continue bupropion (7) Chronic Back pain Continue Flexeril Total Time Total Time Spent Total Time Spent (In Minutes): 50 Total Time Includes: Examination of the Patient, Discharge Planning, Medication Reconciliation and Communication With Other Providers Discharge Plan Discharge Items Patient Disposition: Home - Self-Care Reason For Visit: HYPERTENSIVE URGENCY,HYPERGLYCEMIA Discharge Diagnosis: Dizziness Hypertensive urgency Acute on chronic renal failure Diabetes mellitus Activity: Resume your previous activity Non-emergency contact: Primary Care Provider and Head Stock Operator Call non-emergency contact if: you have any medication questions and your symptoms worsen Follow-up/Referrals: Pauline Carrillo DO [Primary Care Provider] - 04/23/20 11:50 am (Date & Time 04/23/2020 11:50 AM Provider Pauline Carrillo DO Department Internal Medicine [facility] ) Chrissie Joya PA-C [Physician Binding Bench Worker] - 04/23/20 10:00 am (Date & Time 04/23/2020 10:00 AM Provider Chrissie Joya PA-C Department Nephrology [facility] ) Diet: Carb Consistent or DM2 and Heart Healthy Ambulatory Orders: Basic Metabolic Panel (Routine) Timeframe: 20200422 Location: Determined by Patient Ordered By: Sherice Bateman Basic Metabolic Panel (Routine) Timeframe: 20200422 Location: Determined by Patient Ordered By: Sherice Bateman Addtl Attending Provider Instructions: Mr Patel. You came to the hospital complaining of dizziness for about 2 months. You had an extensive evaluation. Your blood pressure and blood glucose were very poorly controlled. You were comanaged with the Head Stock Operator (Kidney doctor). You were found to have acute kidney failure. Please stop taking NSAIDS (ibuprofen, motrin, advil etc). Please stop taking metformin, linagliptin and glipizide for now. Your insulin requirement was adjusted based on requirement in the hospital. Your lantus was reduced to 25units once daily. You were started on insulin novolog 5Units with each meal. It is very important that you follow up with [facility] clinic for continued management of your diabetes. Please adhere to dietary instructions for management of your diabetes. Some adjustments were made to your blood pressure medications. Please stop t aking losartan. Your metoprolol was changed to Carvedilol and hydralazine was added for better blood pressure control. You were also started on diuretic (lasix) twice a day(Please do not take this le ss than 4 hours apart) It is very important that you do the blood test called BMP (basic metabolic panel) next week wednesday (04/22/20) and follow up with Head Stock Operator. It was a pleasure taking care of you Pending Studies at Discharge: No Stand-Alone Forms: My [facility] Spinback, Smoking Cessation Medications and DC Order Prescriptions: New acetaminophen 325 mg Tablet 650 mg PO Q4H PRN (Reason: pain) Qty: 50 RF: 0 insulin aspart U-100 [Novolog Flexpen U-100 Insulin] 100 unit/mL (3 mL) Insulin Pen 5 unit SC AC Qty: 15 RF: 1 carvedilol 25 mg tablet 25 mg PO BID Qty: 60 RF: 0 hydralazine 50 mg tablet 50 mg PO BID Qty: 60 RF: 0 furosemide [Lasix] 40 mg tablet 40 mg PO BID Qty: 60 RF: 0 Continued cyclobenzaprine 10 mg Tablet 10 mg PO HS PRN (Reason: Muscle Pain) RF: 0 atorvastatin 80 mg Tablet 80 mg PO DAILY RF: 0 aspirin [Aspirin Low Dose] 81 mg Tablet,Delayed Release (Dr/Ec) 81 mg PO DAILY RF: 0 triamcinolone acetonide 0.1 % Cream 1 applic TOPICAL BID RF: 0 amlodipine 10 mg Tablet 10 mg PO DAILY RF: 0 ergocalciferol (vitamin D2) 1,250 mcg (50,000 unit) Capsule 1,250 mcg PO WK RF: 0 bupropion HCl 300 mg Tablet Extended Release 24 Hr 300 mg PO DAILY RF: 0 fenofibrate nanocrystallized 145 mg Tablet 145 mg PO DAILY RF: 0 cholecalciferol (vitamin D3) 50 mcg (2,000 unit) Tablet 50 mcg PO DAILY RF: 0 Changed Lantus Solostar U-100 Insulin 100 unit/mL (3 mL) Insulin Pen 25 unit SUBCUT DAILY Qty: 15 RF: 1 Discontinued metformin 500 mg Tablet 500 mg PO BID RF: 0 glipizide 10 mg Tablet 10 mg PO DAILY RF: 0 metoprolol succinate 25 mg Tablet Extended Release 24 Hr 25 mg PO DAILY RF: 0 losartan 100 mg Tablet 100 mg PO DAILY RF: 0 linagliptin 5 mg Tablet 5 mg PO DAILY RF: 0 Discharge Orders: Discharge Order (Routine); Ordered 04/19/20 Ordered By: Sherice Redman/Other Patient Handouts: Diabetes and Kidney Disease Admission Data Admit Date/Time: 04/14/20 15:54 Attending Provider: Sherice Bateman I. Admit Provider: Miquel Barnes Primary Care Provider: Pauline Carrillo Other Providers: Miquel Barnes ; Verónica Momin John E Other Interventions: Discharge Summary Assessment (RN) Last Done: 04/19/20 11:25
[2020-04-21 22:11] LABS: Renin Activity 0.18 ng/mL/h (0.25-5.82)
[2020-04-23 20:19] LABS: Creatinine, 24 hr Urine 1.32 g/24 h (0.50-2.15)
[2020-04-25 19:29] LABS: Aldosterone 24hr Urine <2.3 mcg/24 h; Creatinine 24 Hr Urine 1.32 g/24 h (0.50-2.15)
== END 2020-04-19 13:14 | disposition home or self-care (01) | DRG 304 ==
LOC: ED 12:53 → SUATTDRO 15:54 → 2S 15:54

== ENCOUNTER 2020-07-22 16:17 | Inpatient (IN) ==
[2020-07-22] MEDS ORDERED: FOLIC ACID 1 MG in SYRINGE 9.8 ML IV STA (18:11)
[2020-07-22] MEDS ORDERED: THIAMINE HCL 100 MG in SYRINGE 9 ML IV STA (18:11)
[2020-07-22] MEDS ORDERED: FAMOTIDINE 20MG IV PUSH 20 MG/5 ML SYR IV STA (18:13)
[2020-07-22] MEDS ORDERED: SODIUM CHLORIDE 0.9% 1000ML 1,000 ML IV SCH (18:15)
--- NOTE | 2020-07-22 18:25 | Emergency Department Note ---
Impression & Plan Hypertensive urgency, Dizziness, Acute renal failure ED Provider Note CHIEF COMPLAINT: Dizziness, vomiting, abdominal pain HISTORY OF PRESENTING ILLNESS: This is a 50-year-old male who presents to the emergency department via EMS with complaints of dizziness and vomiting. Patient states that his roommate called the ambulance for him because he was severely dizzy and could not stand up without falling over. Patient reports a history of dizziness like this for several months, but states it has been worse for the past 2 days since he "drank a bunch on s Radha."He states that he has been vomiting for the past 2 days, he does not know what the vomit looked like. He notes some abdominal pain in the upper abdomen as well as the right side, but he notes this has been going on for several weeks. He rates his pain 5/10. He denies any chest pain or shortness of breath. He has not passed out. He denies any exposures concerning for COVID-19. REVIEW OF SYSTEMS: A complete 10 point review of systems was reviewed with the patient with pertinent positives and negatives as per history of present illness. All else were negative. PAST MEDICAL HISTORY: Depression, hypertension, chronic kidney disease, insulin- dependent diabetes mellitus, hyperlipidemia SOCIAL HISTORY: Lives at home, denies tobacco use ALLERGIES: No known allergies PHYSICAL EXAM: CONSTITUTIONAL: Pleasant and cooperative. Nontoxic-appearing and in no acute distress. Well appearing and well nourished. HEENT: Normocephalic, atraumatic. PERRL, extraocular movements intact with the exception of absent lateral abduction of the right eye. TMs normal, no hemotympanum bilaterally. Pharynx normal. NECK: Supple, full active range of motion without discomfort. No cervical adenopathy. RESPIRATORY: Clear to auscultation bilaterally with no wheezing, crackles, rhonchi or stridor. Equal expansion bilaterally. CARDIOVASCULAR: Regular rate and rhythm with no murmurs, rubs or gallops. Normal peripheral perfusion. No edema. GASTROINTESTINAL: Mildly tender to palpation in the right flank and right lower quadrant abdomen, no rebound tenderness or guarding. Abdomen is otherwise nontender, soft and nondistended. No palpable masses or HSM. Bowel sounds present in all quadrants. No CVA tenderness bilaterally. MUSCULOSKELETAL: Full range of motion of all joints without discomfort. INTEGUMENTARY: No rash or other significant dermatologic conditions noted. NEUROLOGIC: Alert and oriented X 4 with flat affect. GCS 15. Cranial nerves II-XII grossly intact, no pronator drift. Gitiih-gqjw-[id number] testing abnormal bilaterally. 5/5 strength in all 4 extremities. Sensation intact to light touch in all 4 extremities. ED COURSE AND MEDICAL DECISION MAKING: CC: Patient presenting with complaint of dizziness, vomiting, abdominal pain DIFFERENTIAL DIAGNOSIS: Includes, but not limited to vertigo, orthostatic hypotension, vasovagal episode, dehydration, electrolyte abnormality, acute on chronic renal failure, anemia, upper GI bleed, intracranial hemorrhage, intracranial mass, stroke, among others. INTERPRETATION OF LABS: No leukocytosis, mild anemia (appears decreased from previous labs), normal platelets, no significant electrolyte abnormality, elevated BUN and creatinine (increased from baseline), normal liver enzymes and lipase. Troponin is within normal limits. Salicylates and acetaminophen levels are normal. Medical alcohol is negative. Rapid SARS-CoV-2 test is negative. IMAGING: CT head/brain wo con CLINICAL HISTORY: dizziness COMPARISON STUDY: Head CT performed 04/14/2020, MRI the brain performed 04/14/2020. TECHNIQUE: Axial CT of the brain is performed from the vertex to the skull base. IV contrast was not administered for this examination. A dose lowering technique was utilized adhering to the principles of ALARA. CT DOSE: 537.48 mGy.cm FINDINGS: No intra or extra-axial mass lesions are visualized. There is no CT evidence of acute cortical infarction. There is no evidence of midline shift. There is no acute hemorrhage. No calvarial fractures are visualized. There are interval white matter hypodensities likely on a small vessel basis. There is no evidence of pathologic ventricular dilatation. There are trace mastoid effusions. These were described on the prior March 2020 MRI the brain. IMPRESSION: No acute intracranial findings ----- CT SCAN OF THE ABDOMEN AND PELVIS WITHOUT CONTRAST CLINICAL HISTORY: vomiting, abd pain, right flank pain, chronic renal disease COMPARISON STUDY: 04/18/2020 TECHNIQUE: CT scan of the abdomen and pelvis was performed from the lung bases to the proximal femurs. Images are reviewed in the axial, sagittal, and coronal planes. IV contrast was not administered for this examination. A dose lowering technique was utilized adhering to the principles of ALARA. CT DOSE: 424.01 mGy.cm FINDINGS: Lower chest: There is a calcified left lower lobe granuloma. There are no pleural effusions. Liver: The unenhanced liver is normal in size, contour, and attenuation. There is no intrahepatic biliary ductal dilatation. Gallbladder: The gallbladder is contracted with calculi/wall calcifications versus a gallbladder remnant in a postcholecystectomy patient. Spleen: Normal in size and attenuation. Pancreas: Unremarkable. Adrenal glands: There is minor low density adrenal gland thickening. Kidneys: There is no hydronephrosis. There is a nonobstructive 2 mm right renal calculus. No ureteral or bladder calculi are visualized. Bowel: There are no transition zones to indicate bowel obstruction. There is no evidence of acute diverticulitis. There is no evidence of acute appendicitis. There is borderline right colonic and rectal wall thickening.. Peritoneum: There is no intraperitoneal free air or abdominal ascites. Vasculature: The abdominal aorta is normal in course and caliber. Adenopathy: None. Pelvic viscera: There is borderline bladder wall thickening which may be secondary to a nondistended bladder. Skeletal structures: There are prominent disc osteophyte complexes at the T12-L1 level, and L4-L5 level. IMPRESSION: 1. No evidence of bowel obstruction. No evidence of free air. 2. No evidence of acute appendicitis. No evidence of acute diverticulitis. 3. Contracted gallbladder containing calculi/wall calcification versus gallbladder remnant in a postcholecystectomy patient 4. Mild body wall edema 5. Prominent disc osteophyte complexes at the T12-L1, and L4-L5 levels 6. There is borderline right colonic wall thickening and borderline rectal wall thickening. 7. Tiny nonobstructive right renal calculus EKG: Shows sinus tachycardia with a rate of 109 bpm, left axis deviation, no ST elevation or depression, no significant change when compared to previous EKG from 05/27/2020 by my interpretation. MEDICATION RECONCILIATION: I attest that I have personally reviewed the patien t's current medication list. INITIAL VITAL SIGNS REVIEW: I reviewed the patient's initial vital signs and interpret them as follows: T: Afebrile; BP: Significantly hypertensive; HR: Mildly tachycardic; RR: Within normal limits; Pulse Ox: Within normal limits on room air. MDM SUMMARY: Patient was evaluated at bedside, history and physical exam performed. The patient is an unreliable historian, and has changed his story several times. The patient does demonstrate difficulty with lateral abduction of the right eye on exam, he states that this has been a chronic problem for several weeks or even months. He also notes that he has double vision in the right eye and has seen an eye doctor, he notes that he was told he has cataracts, and reports this has also been an ongoing problem for several weeks. The patient does also have poor coordination with [id number] testing. There were no focal deficits of extremity weakness or sensory loss noted on neurologic exam, and cranial nerves are grossly intact. The patient did indicate a history of recent significant alcohol intake, but denies regular or excessive alcohol use. The patient is notably hypertensive, but does not have any significant tachycardia and does not exhibit any tremors or other overt signs of alcohol withdrawal at this time. Cardiac monitoring: An order was placed for continuous cardiac monitoring. The monitor shows a rate of 97 bpm with normal sinus rhythm. Orders were placed for labs including medical clearance with acetaminophen, salicylate, medical alcohol, and urine drug profile, IV fluid bolus for hydration, IV thiamine and folic acid preventatively, IV Pepcid, EKG, CT of the head and abdomen/pelvis noncontrast. The patient declined anything for pain at this time. Patient discussed with Dr. Rao, who agrees with my assessment, plan, and disposition. Labs and imaging reviewed as above, mild decrease in H&H compared to previous labs. Significant increase in creatinine concerning for acute on chronic renal failure. Medical alcohol is negative. Patient has not had any vomiting while in the emergency department, I did order for Hemoccult testing to evaluate for possible GI bleed. CT imaging of the head is unremarkable, no acute intracranial findings. CT imaging of the abdomen/pelvis did note some borderline colonic wall thickening, but no specific findings to explain the patient's abdominal discomfort. EKG shows sinus tachycardia with no acute ischemic changes. Patient's hypertension initially appeared to be improved on reassessment at 177/93, however increased again on recheck to 243/137. Given the persistent and significant hypertension, I did order IV labetalol 10 m g per recommendation of the ED pharmacist. On reassessment, the patient's blood pressure was downtrending, will continue to monitor. I spoke with Dr. Enriquez, [facility] hospitalist, who agrees to evaluate the patient for admission. Will defer to the inpatient team regarding any further imaging of the brain. I did recommend neurology consult. Patient reassessed multiple times throughout ED stay, has remained otherwise hemodynamically stable and without complaint. He was updated on the plan for admission, all questions were answered to the best of my abilities and the patient was agreeable to this plan. The patient was stable at time of admission. The chart was completed utilizing [employer] Speech voice recognition software. Grammatical errors, random word insertions, pronoun errors, and incomplete sentences are an occasional consequence of this system due to software limitations, ambient noise, and hardware issues. Any formal questions or concerns about the content, text, or information contained within the body of this dictation should be directly addressed to the nurse practitioner for clarification. Past Med/Surg History Medical History Anemia Chronic back pain CKD (chronic kidney disease) stage 3, GFR 30-59 ml/min Depression HTN (hypertension) Insulin dependent diabetes mellitus Proteinuria, unspecified Surgical History No significant past surgical history Family History Father Diabetes Mother Diabetes Social History Smoking Status: Never smoker Tobacco Type: Smokeless Tobacco (Dip or Chew) Second Hand Exposure: No; Hx Alcohol Use: Yes Hx Substance Use: No Preferred Language: Samoan Communication Ability: Effective Fishing Worker Required: No Beliefs That Will Affect Care: None Current Living Situation: Significant Other Feels Safe at Home: Yes Assistive Devices: Glasses Allergies Allergies Allergy/AdvReac Type Severity Reaction Status Date / Time No Known Allergies Allergy Verified 07/22/20 16:50 Home Meds Home Medications Medication Instructions Recorded Confirmed amlodipine 5 mg PO DAILY 04/14/20 07/22/20 aspirin [Aspirin Low Dose] 81 mg PO DAILY 04/14/20 07/22/20 atorvastatin 80 mg PO DAILY 04/14/20 07/22/20 bupropion HCl 300 mg PO DAILY 04/14/20 07/22/20 cholecalciferol (vitamin D3) 50 mcg PO DAILY 04/14/20 07/22/20 ergocalciferol (vitamin D2) 1,250 mcg PO WK 04/14/20 07/22/20 fenofibrate nanocrystallized 145 mg PO DAILY 04/14/20 07/22/20 triamcinolone acetonide 1 applic TOPICAL BID 04/14/20 07/22/20 Lantus Solostar U-100 Insulin 25 unit SUBCUT QAM 07/22/20 07/22/20 Previous Rx's Medication Instructions Recorded acetaminophen 650 mg PO Q4H PRN #50 tab 04/18/20 insulin aspart U-100 [Novolog 5 unit SC AC #15 ml 04/18/20 Flexpen U-100 Insulin] carvedilol 25 mg PO BID #60 tab 04/19/20 furosemide [Lasix] 40 mg PO BID #60 tab 04/19/20 hydralazine 50 mg PO BID #60 tab 04/19/20 famotidine [Pepcid] 20 mg PO BID PRN #60 tab 05/27/20 hydrocodone-acetaminophen [[place]] 1 tab PO Q6H PRN #10 tab 05/27/20 Results & Data (ED) Vital Signs Vital Signs - 24 hr 07/22/20 16:04 07/22/20 18:08 07/22/20 18:21 Temperature 36.9 C Temperature Source Oral Pulse Rate - Lying Pulse Rate - Sitting Pulse Rate - Standing Pulse Rate 97 H Pulse Rate [Left Finger] 97 H Pulse Rhythm [Left Finger] Regular Pulse Strength [Left Finger] Normal Respiratory Rate 22 20 Respiratory Effort / Characteristics Non-Labored Spontaneous Non-Labored Spontaneous Respiratory Depth Normal Normal Respiratory Pattern Regular Regular Blood Pressure - Lying Blood Pressure - Sitting Blood Pressure- Standing Blood Pressure 218/133 H Blood Pressure [Right Arm] 177/93 H Blood Pressure Mean 161 Blood Pressure Mean [Right Arm] 121 Blood Pressure Position Lying Blood Pressure Position [Right Arm] Lying Pulse Oximetry 100 100 100 Oxygen Delivery Method Room Air Room Air Room Air Sepsis Recent Fever Within 48 Hours No Sepsis New/Unexplained Change in Mental Status N/A Sepsis Action Taken by Nursing No Action Required 07/22/20 19:25 07/22/20 19:55 07/22/20 20:19 Temperature Temperature Source Pulse Rate - Lying 100 H Pulse Rate - Sitting 104 H Pulse Rate - Standing 110 H Pulse Rate Pulse Rate [Left Finger] 99 H 79 Pulse Rhythm [Left Finger] Pulse Strength [Left Finger] Respiratory Rate 20 20 Respiratory Effort / Characteristics Respiratory Depth Respiratory Pattern Blood Pressure - Lying 225/122 H Blood Pressure - Sitting 198/107 H Blood Pressure- Standing 165/83 H Blood Pressure Blood Pressure [Right Arm] 243/137 H 225/109 H Blood Pressure Mean Blood Pressure Mean [Right Arm] 172 147 Blood Pressure Position Blood Pressure Position [Right Arm] Pulse Oximetry 100 100 Oxygen Delivery Method Room Air Sepsis Recent Fever Within 48 Hours Sepsis New/Unexplained Change in Mental Status Sepsis Action Taken by Nursing 07/22/20 20:33 07/22/20 21:09 07/22/20 21:37 Temperature Temperature Source Pulse Rate - Lying Pulse Rate - Sitting Pulse Rate - Standing Pulse Rate Pulse Rate [Left Finger] 80 83 86 Pulse Rhythm [Left Finger] Pulse Strength [Left Finger] Respiratory Rate 20 20 20 Respiratory Effort / Characteristics Respiratory Depth Respiratory Pattern Blood Pressure - Lying Blood Pressure - Sitting Blood Pressure- Standing Blood Pressure Blood Pressure [Right Arm] 206/119 H 209/166 H 215/117 H Blood Pressure Mean Blood Pressure Mean [Right Arm] 148 180 149 Blood Pressure Position Blood Pressure Position [Right Arm] Pulse Oximetry 100 100 100 Oxygen Delivery Method Room Air Room Air Room Air Sepsis Recent Fever Within 48 Hours Sepsis New/Unexplained Change in Mental Status Sepsis Action Taken by Nursing 07/22/20 22:09 07/22/20 22:31 07/22/20 23:01 Temperature Temperature Source Pulse Rate - Lying Pulse Rate - Sitting Pulse Rate - Standing Pulse Rate Pulse Rate [Left Finger] 81 84 89 Pulse Rhythm [Left Finger] Pulse Strength [Left Finger] Respiratory Rate 20 20 20 Respiratory Effort / Characteristics Respiratory Depth Respiratory Pattern Blood Pressure - Lying Blood Pressure - Sitting Blood Pressure- Standing Blood Pressure Blood Pressure [Right Arm] 193/112 H 207/112 H 179/95 H Blood Pressure Mean Blood Pressure Mean [Right Arm] 139 143 123 Blood Pressure Position Blood Pressure Position [Right Arm] Pulse Oximetry 100 100 100 Oxygen Delivery Method Room Air Room Air Sepsis Recent Fever Within 48 Hours Sepsis New/Unexplained Change in Mental Status Sepsis Action Taken by Nursing Laboratory Data Result diagrams: 07/22/20 18:17 07/22/20 18:17 Lab Results 07/22/20 07/22/20 07/22/20 Range/Units 18:17 18:17 18:17 WBC 9.66 (4.8-10.8) K/uL RBC 3.64 L (4.7-6.1) M/uL Hgb 10.8 L (14.0-18.0) g/dL Hct 31.9 L (42-52) % MCV 87.6 (80-100) fL MCH 29.7 (25-34) pg MCHC 33.9 (32-36) g/dL RDW Std Deviation 49.2 H (36.4-46.3) fL RDW Coeff of Luz 15.2 H (11.5-14.5) % Plt Count 364 (130-400) K/uL MPV 9.5 (7.4-10.4) fL Immature Gran % (Auto) 0.1 % Neut % (Auto) 76.7 % Lymph % (Auto) 18.6 % [place] % (Auto) 3.9 % Eos % (Auto) 0.3 % Baso % (Auto) 0.4 % Neut # (Auto) 7.40 H (1.4-6.5) K/uL Lymph # (Auto) 1.80 (1.2-3.4) K/uL [place] # (Auto) 0.38 (0.11-0.59) K/uL Eos # (Auto) 0.03 (0-0.5) K/uL Baso # (Auto) 0.04 (0-0.2) K/uL Immature Gran # (Auto) 0.01 (0.00-0.02) K/uL Sodium (136-145) mmol/L Potassium (3.5-5.1) mmol/L Chloride (98-107) mmol/L Carbon Dioxide (21-32) mmol/L Anion Gap (3-11) BUN (7-18) mg/dl Creatinine (0.6-1.4) mg/dl Est Cr Clr Drug Dosing ml/min Est GFR ( Amer) Est GFR (Non-Af Amer) BUN/Creatinine Ratio (10-20) Glucose (70-99) mg/dl Calcium (8.5-10.1) mg/dl Magnesium (1.8-2.4) mg/dl Total Bilirubin (0.2-1) mg/dl AST (15-37) U/L ALT (12-78) U/L Alkaline Phosphatase (45-117) U/L Troponin I (0-0.045) ng/ml Total Protein (6.4-8.2) gm/dl Albumin (3.4-5.0) gm/dl Globulin (2.5-4.0) gm/dl Albumin/Globulin Ratio (0.9-2) Lipase (73-393) U/L TSH (0.300-4.500) uIu/ml Salicylates < 1.7 L (2.8-20) mg/dl Acetaminophen 3 L (10-30) ug/ml Ethyl Alcohol mg/dL < 3.0 (0-3) mg/dl Lyme Disease IgG Ab (Negative) Lyme Disease IgM Ab (Negative) 07/22/20 07/22/20 07/22/20 Range/Units 18:17 18:17 18:17 WBC (4.8-10.8) K/uL RBC (4.7-6.1) M/uL Hgb (14.0-18.0) g/dL Hct (42-52) % MCV (80-100) fL MCH (25-34) pg MCHC (32-36) g/dL RDW Std Deviation (36.4-46.3) fL RDW Coeff of Luz (11.5-14.5) % Plt Count (130-400) K/uL MPV (7.4-10.4) fL Immature Gran % (Auto) % Neut % (Auto) % Lymph % (Auto) % [place] % (Auto) % Eos % (Auto) % Baso % (Auto) % Neut # (Auto) (1.4-6.5) K/uL Lymph # (Auto) (1.2-3.4) K/uL [place] # (Auto) (0.11-0.59) K/uL Eos # (Auto) (0-0.5) K/uL Baso # (Auto) (0-0.2) K/uL Immature Gran # (Auto) (0.00-0.02) K/uL Sodium 140 (136-145) mmol/L Potassium 3.5 (3.5-5.1) mmol/L Chloride 110 H (98-107) mmol/L Carbon Dioxide 24 (21-32) mmol/L Anion Gap 6.0 (3-11) BUN 34 H (7-18) mg/dl Creatinine 4.12 H (0.6-1.4) mg/dl Est Cr Clr Drug Dosing 22.5 ml/min Est GFR ( Amer) 18.3 Est GFR (Non-Af Amer) 15.8 BUN/Creatinine Ratio 8.2 L (10-20) Glucose 161 H (70-99) mg/dl Calcium 8.2 L (8.5-10.1) mg/dl Magnesium 2.1 (1.8-2.4) mg/dl Total Bilirubin 0.4 (0.2-1) mg/dl AST 13 L (15-37) U/L ALT 14 (12-78) U/L Alkaline Phosphatase 78 (45-117) U/L Troponin I 0.027 (0-0.045) ng/ml Total Protein 5.6 L (6.4-8.2) gm/dl Albumin 2.0 L (3.4-5.0) gm/dl Globulin 3.6 (2.5-4.0) gm/dl Albumin/Globulin Ratio 0.6 L (0.9-2) Lipase 157 (73-393) U/L TSH 2.570 (0.300-4.500) uIu/ml Salicylates (2.8-20) mg/dl Acetaminophen (10-30) ug/ml Ethyl Alcohol mg/dL (0-3) mg/dl Lyme Disease IgG Ab Negative (Negative) Lyme Disease IgM Ab Negative (Negative) Administered Medications Discontinued Medications Clopidogrel Bisulfate (Clopidogrel Bisulfate 75 Mg Tab) 75 mg PO NOW STA Stop: 07/22/20 23:28 Last Admin: 07/22/20 23:42 Dose: 75 mg Documented by: [id number] Admin: 07/22/20 23:42 Dose: 75 mg Documented by: [id number] Hydralazine HCl (Hydralazine Hcl 20 Mg/Ml Vial) 10 mg IV NOW STA Stop: 07/22/20 22:37 Last Admin: 07/22/20 22:43 Dose: 10 mg Documented by: [id number] Sodium Chloride (Nss 1000ml) 1,000 mls @ 999 mls/hr IV .Q1H1M RUPESH Stop: 07/22/20 19:15 Last Infusion: 07/22/20 20:11 Dose: 0 mls/hr Documented by: [id number] Admin: 07/22/20 18:57 Dose: 999 mls/hr Documented by: [id number] Thiamine HCl 100 mg/ Syringe 10 mls @ 2 mls/min IV NOW STA Stop: 07/22/20 18:15 Last Admin: 07/22/20 19:37 Dose: 2 mls/min Documented by: [id number] Folic Acid 1 mg/ Syringe 10 mls @ 5 mls/min IV NOW STA Stop: 07/22/20 18:12 Last Admin: 07/22/20 19:37 Dose: 5 mls/min Documented by: [id number] Famotidine (Pepcid 20mg Iv Push) 20 mg in 5 mls @ 2.5 mls/min IV NOW STA Stop: 07/22/20 18:14 Last Admin: 07/22/20 19:37 Dose: 2.5 mls/min Documented by: [id number] Labetalol HCl (Labetalol Hcl Iv 5 Mg/Ml 20ml) 10 mg IV NOW STA Stop: 07/22/20 19:59 Last Admin: 07/22/20 20:18 Dose: 10 mg Documented by: [id number] Cosigned by: [id number] Labetalol HCl (Labetalol Hcl Iv 5 Mg/Ml 20ml) 10 mg IV NOW STA Stop: 07/22/20 21:39 Last Admin: 07/22/20 21:52 Dose: 10 mg Documented by: [id number] Cosigned by: [id number] Discharge Plan Visit Data Chief Complaint: Abdominal Pain Stated Complaint: VOMITING ED Provider: Steven Rao ED Midlevel Provider: Ceci Juárez Discharge Problem: Hypertensive urgency, Dizziness, Acute renal failure Patient Disposition: Admitted As Inpatient Condition: Good Discharge Instructions Interventions: ED Discharge Assessment Last Done: 07/23/20 00:21 Discharge Problem: Acute renal failure Qualifiers: Acute renal failure type: unspecified Qualified Code(s): N17.9 - Acute kidney failure, unspecified
[2020-07-22 18:31] LABS: Basophils # (auto) 0.04 K/uL (0-0.2); Basophils % (auto) 0.4 %; Eosinophils # (auto) 0.03 K/uL (0-0.5); Eosinophils % (auto) 0.3 %; Hematocrit (blood only) 31.9 % (42-52); Hemoglobin 10.8 g/dL (14.0-18.0); Immature Granulocytes # (auto) 0.01 K/uL (0.00-0.02); Immature Granulocytes % (auto) 0.1 %; Lymphocytes % (auto) 18.6 %; Mean Corpuscular Hemoglobin 29.7 pg (25-34); Mean Corpuscular Hgb Conc 33.9 g/dL (32-36); Mean Corpuscular Volume 87.6 fL (80-100); Mean Platelet Volume 9.5 fL (7.4-10.4); Monocytes # (auto) 0.38 K/uL (0.11-0.59); Monocytes % (auto) 3.9 %; Neutrophils % (auto) 76.7 %; Platelet Count 364 K/uL (130-400); RDW Coefficient of Variation 15.2 % (11.5-14.5); RDW Standard Deviation 49.2 fL (36.4-46.3); Red Blood Count 3.64 M/uL (4.7-6.1); White Blood Count 9.66 K/uL (4.8-10.8)
[2020-07-22 19:30] LABS: BUN Creatinine Ratio 8.2 (10-20); Calcium 8.2 mg/dl (8.5-10.1); Creatinine Clr Calc Pharmacy 22.5 ml/min; Est GFR (African American) 18.3; Est GFR (Non-African American) 15.8; Potassium 3.5 mmol/L (3.5-5.1)
[2020-07-22 19:32] LABS: Acetaminophen 3 ug/ml (10-30); Salicylate < 1.7 mg/dl (2.8-20)
[2020-07-22 19:39] LABS: Albumin Globulin Ratio 0.6 (0.9-2); Bilirubin,Total 0.4 mg/dl (0.2-1); Globulin 3.6 gm/dl (2.5-4.0); Total Protein 5.6 gm/dl (6.4-8.2)
--- NOTE | 2020-07-22 19:56 | CT Scan Report ---
CT head/brain wo con CLINICAL HISTORY: dizziness COMPARISON STUDY: Head CT performed 04/14/2020, MRI the brain performed 04/14/2020. TECHNIQUE: Axial CT of the brain is performed from the vertex to the skull base. IV contrast was not administered for this examination. A dose lowering technique was utilized adhering to the principles of ALARA. CT DOSE: 537.48 mGy.cm FINDINGS: No intra or extra-axial mass lesions are visualized. There is no CT evidence of acute cortical infarc tion. There is no evidence of midline shift. There is no acute hemorrhage. No calvarial fractures ar e visualized. There are interval white matter hypodensities likely on a small vessel basis. There is no evidence of pathologic ventricular dilatation. There are trace mastoid effusions. These were described on the prior March 2020 MRI the brain. IMPRESSION: No acute intracranial findings ACT 112: Negative or not required by law. Electronically signed by: Ari Crandall M.D. 07/22/2020 7:55 PM
[2020-07-22] MEDS ORDERED: LABETALOL HCL IV 5 MG/ML 20ML IV STA ×2 (19:58→21:38)
--- NOTE | 2020-07-22 20:05 | CT Scan Report ---
CT SCAN OF THE ABDOMEN AND PELVIS WITHOUT CONTRAST CLINICAL HISTORY: vomiting, abd pain, right flank pain, chronic renal disease COMPARISON STUDY: 04/18/2020 TECHNIQUE: CT scan of the abdomen and pelvis was performed from the lung bases to the proximal femurs . Images are reviewed in the axial, sagittal, and coronal planes. IV contrast was not administered fo r this examination. A dose lowering technique was utilized adhering to the principles of ALARA. CT DOSE: 424.01 mGy.cm FINDINGS: Lower chest: There is a calcified left lower lobe granuloma. There are no pleural effusions. Liver: The unenhanced liver is normal in size, contour, and attenuation. There is no intrahepatic gilbert iary ductal dilatation. Gallbladder: The gallbladder is contracted with calculi/wall calcifications versus a gallbladder remn ant in a postcholecystectomy patient.. Spleen: Normal in size and attenuation. Pancreas: Unremarkable. Adrenal glands: There is minor low density adrenal gland thickening. Kidneys: There is no hydronephrosis. There is a nonobstructive 2 mm right renal calculus. No ureteral or bladder calculi are visualized. Bowel: There are no transition zones to indicate bowel obstruction. There is no evidence of acute div erticulitis. There is no evidence of acute appendicitis. There is borderline right colonic and rectal wall thickening.. Peritoneum: There is no intraperitoneal free air or abdominal ascites. Vasculature: The abdominal aorta is normal in course and caliber. Adenopathy: None. Pelvic viscera: There is borderline bladder wall thickening which may be secondary to a nondistended bladder. Skeletal structures: There are prominent disc osteophyte complexes at the T12-L1 level, and L4-L5 lev el. IMPRESSION: 1. No evidence of bowel obstruction. No evidence of free air. 2. No evidence of acute appendicitis. No evidence of acute diverticulitis. 3. Contracted gallbladder containing calculi/wall calcification versus gallbladder remnant in a postc holecystectomy patient 4. Mild body wall edema 5. Prominent disc osteophyte complexes at the T12-L1, and L4-L5 levels 6. There is borderline right colonic wall thickening and borderline rectal wall thickening. 7. Tiny nonobstructive right renal calculus ACT 112: Negative or not required by law. Electronically signed by: Ari Crandall M.D. 07/22/2020 8:03 PM
[2020-07-22] MEDS ORDERED: PROMETHAZINE HCL 12.5 MG in SODIUM CHLORIDE 0.9% 50 ML IV PRN (21:34)
--- NOTE | 2020-07-22 22:07 | History & Physical Report ---
Date of Service July 22, 2020 Assessment & Plan (1) Hypertensive urgency: (2) Visual disturbances: (3) Dizziness: (4) Insulin dependent diabetes mellitus: This is a 50yo M with a PMH of type 2 diabetes on insulin, hypertension, diabetic retinopathy of both eyes, h/o CVA with poor vision of L eye, CKD III- IV, depression and other medical problems listed below who presents with worsening diplopia and dizziness x few weeks and was found to have R eye palsy and hypertensive urgency. Please see Dr. Enriquez's addendum for plan details. History of Present Illness Chief Complaint: diplopia, dizziness Primary Care Provider: Pauline Carrillo, This is a 50yo M with a PMH of type 2 diabetes on insulin, hypertension, diabetic retinopathy of both eyes, h/o CVA with poor vision of L eye, CKD III- IV, depression and other medical problems listed below who presents with worsening diplopia and dizziness x few weeks. First began to experience double vision a few months ago and then developed dizziness a few days ago after drinking alcohol on . Was nauseated with some vomiting that has since resolved. Also endorses feeling his legs go weak intermittently but states that has been going on for years now. Did recently see eye doctor and was told to return for follow up testing. Follows with nephrology and is scheduled for vascular surgery appointment in [place] for HD access. Cr ~high 3s-4 since April. Patient's fiance manages medication but he believes he has been taking medication as scheduled, including blood pressure medications. In ED, blood pressure is significantly elevated 209/166. Was given 10 mg IV labetalol x1. Repeat BP 215/117. Given another 10 mg IV labetalol x 1 during my interview. Endorses dizziness, diplopia and generalized weakness. Denies headache, chest pain, nausea or vomiting. No fever chills. No palpitations, shortness of breath, nausea, abdominal pain, dysuria, diarrhea or constipation. Allergies Allergy/AdvReac Type Severity Reaction Status Date / Time No Known Allergies Allergy Verified 07/22/20 16:50 Home Medications Medication Instructions Recorded Confirmed Type amlodipine 5 mg PO DAILY 04/14/20 07/22/20 History aspirin [Aspirin Low Dose] 81 mg PO DAILY 04/14/20 07/22/20 History atorvastatin 80 mg PO DAILY 04/14/20 07/22/20 History bupropion HCl 300 mg PO DAILY 04/14/20 07/22/20 History cholecalciferol (vitamin D3) 50 mcg PO DAILY 04/14/20 07/22/20 History ergocalciferol (vitamin D2) 1,250 mcg PO WK 04/14/20 07/22/20 History fenofibrate nanocrystallized 145 mg PO DAILY 04/14/20 07/22/20 History triamcinolone acetonide 1 applic TOPICAL BID 04/14/20 07/22/20 History acetaminophen 650 mg PO Q4H PRN #50 tab 04/18/20 07/22/20 Rx insulin aspart U-100 [Novolog 5 unit SC AC #15 ml 04/18/20 07/22/20 Rx Flexpen U-100 Insulin] carvedilol 25 mg PO BID #60 tab 04/19/20 07/22/20 Rx furosemide [Lasix] 40 mg PO BID #60 tab 04/19/20 07/22/20 Rx hydralazine 50 mg PO BID #60 tab 04/19/20 07/22/20 Rx famotidine [Pepcid] 20 mg PO BID PRN #60 tab 05/27/20 07/22/20 Rx hydrocodone-acetaminophen [[place]] 1 tab PO Q6H PRN #10 tab 05/27/20 07/22/20 Rx Lantus Solostar U-100 Insulin 25 unit SUBCUT QAM 07/22/20 07/22/20 History Past Med/Surg History Medical History (Updated 07/23/20 @ 10:53 by Nina Corea MD, PhD) Anemia Chronic back pain CKD (chronic kidney disease) stage 4, GFR 15-29 ml/min Depression HTN (hypertension) Insulin dependent diabetes mellitus Nephrotic syndrome Proteinuria, unspecified nephrotic range Surgical History No significant past surgical history Family History Father Diabetes Mother Diabetes Social History Smoking Status: Never smoker Tobacco Type: Smokeless Tobacco (Dip or Chew) Second Hand Exposure: No; Do You Dip or Chew Tobacco: Yes; Tobacco Cessation Education Requested by Patient: No Hx Alcohol Use: Yes Hx Substance Use: No Preferred Language: Lao Communication Ability: Effective Communication Signals Intelligence Required: No Beliefs That Will Affect Care: None Current Living Situation: Other Current Living Situation Comment: "friends" Other Information That Helps Us Care for You: No Feels Safe at Home: Yes Safety Concerns: Feels Safe At This Time Assistive Devices: Cane and Walker Review of Systems Review of Systems: At least ten systems reviewed and negative except as noted in the HPI. Physical Exam Physical Exam: General Appearance: vitals as above, NAD, sitting up in bed, p leasant, conversing easily Head: normocephalic, atraumatic Eyes: PERRL, EOMI with exception of absent abduction of the R eye, accomodation nl, poor acuity bilaterally, conjunctivae normal, anicteric sclerae ENT: external ear and nose normal, oropharynx normal Neck: normal visual inspection, trachea midline, no thyromegaly Respiratory: normal respiratory effort, lungs clear to auscultation, no wheeze, rales, rhonchi. No accessory muscle use Cardiovascular: regular rate, rhythm, no murmur, normal peripheral pulses, no BLE edema. Vessels: no JVD Chest: normal inspection of chest Abdomen/GI: normal bowel sounds, soft, nontender, no hepatosplenomegaly Extremities/Musculoskeletal: no cyanosis or clubbing, extremities motor strength 5/5 Neurologic: + See eye exam above. No face palsy, no dysarthria, CN's II-XI otherwise grossly intact, moves all extremities Psychiatric: A+Ox3, euthymic affect Skin: no rashes, normal color, warm/dry Results & Data Results & Data ([facility]) Vital Signs (Past 12 Hours) Vital Signs Temp Pulse Pulse Resp BP BP Pulse Ox 07/22/20 21:37 86 20 215/117 H 100 07/22/20 21:09 83 20 209/166 H 100 07/22/20 20:33 80 20 206/119 H 100 07/22/20 20:19 79 20 225/109 H 100 07/22/20 19:25 99 H 20 243/137 H 100 07/22/20 18:21 97 H 20 177/93 H 100 07/22/20 18:08 100 07/22/20 16:04 36.9 C 97 H 22 218/133 H 100 Laboratory Results Short CBC 07/22/20 07/22/20 07/22/20 Range/Units 18:17 18:17 18:17 WBC 9.66 (4.8-10.8) K/uL RBC 3.64 L (4.7-6.1) M/uL Hgb 10.8 L (14.0-18.0) g/dL Hct 31.9 L (42-52) % MCV 87.6 (80-100) fL MCH 29.7 (25-34) pg MCHC 33.9 (32-36) g/dL RDW Std Deviation 49.2 H (36.4-46.3) fL RDW Coeff of Luz 15.2 H (11.5-14.5) % Plt Count 364 (130-400) K/uL MPV 9.5 (7.4-10.4) fL Immature Gran % (Auto) 0.1 % Neut % (Auto) 76.7 % Lymph % (Auto) 18.6 % [place] % (Auto) 3.9 % Eos % (Auto) 0.3 % Baso % (Auto) 0.4 % Neut # (Auto) 7.40 H (1.4-6.5) K/uL Lymph # (Auto) 1.80 (1.2-3.4) K/uL [place] # (Auto) 0.38 (0.11-0.59) K/uL Eos # (Auto) 0.03 (0-0.5) K/uL Baso # (Auto) 0.04 (0-0.2) K/uL Immature Gran # (Auto) 0.01 (0.00-0.02) K/uL Sodium (136-145) mmol/L Potassium (3.5-5.1) mmol/L Chloride (98-107) mmol/L Carbon Dioxide (21-32) mmol/L Anion Gap (3-11) BUN (7-18) mg/dl Creatinine (0.6-1.4) mg/dl Est Cr Clr Drug Dosing ml/min Est GFR ( Amer) Est GFR (Non-Af Amer) BUN/Creatinine Ratio (10-20) Glucose (70-99) mg/dl Calcium (8.5-10.1) mg/dl Total Bilirubin (0.2-1) mg/dl AST (15-37) U/L ALT (12-78) U/L Alkaline Phosphatase (45-117) U/L Total Protein (6.4-8.2) gm/dl Albumin (3.4-5.0) gm/dl Globulin (2.5-4.0) gm/dl Albumin/Globulin Ratio (0.9-2) Salicylates < 1.7 L (2.8-20) mg/dl Acetaminophen 3 L (10-30) ug/ml Ethyl Alcohol mg/dL < 3.0 (0-3) mg/dl 07/22/20 Range/Units 18:17 WBC (4.8-10.8) K/uL RBC (4.7-6.1) M/uL Hgb (14.0-18.0) g/dL Hct (42-52) % MCV (80-100) fL MCH (25-34) pg MCHC (32-36) g/dL RDW Std Deviation (36.4-46.3) fL RDW Coeff of Luz (11.5-14.5) % Plt Count (130-400) K/uL MPV (7.4-10.4) fL Immature Gran % (Auto) % Neut % (Auto) % Lymph % (Auto) % [place] % (Auto) % Eos % (Auto) % Baso % (Auto) % Neut # (Auto) (1.4-6.5) K/uL Lymph # (Auto) (1.2-3.4) K/uL [place] # (Auto) (0.11-0.59) K/uL Eos # (Auto) (0-0.5) K/uL Baso # (Auto) (0-0.2) K/uL Immature Gran # (Auto) (0.00-0.02) K/uL Sodium 140 (136-145) mmol/L Potassium 3.5 (3.5-5.1) mmol/L Chloride 110 H (98-107) mmol/L Carbon Dioxide 24 (21-32) mmol/L Anion Gap 6.0 (3-11) BUN 34 H (7-18) mg/dl Creatinine 4.12 H (0.6-1.4) mg/dl Est Cr Clr Drug Dosing 22.5 ml/min Est GFR ( Amer) 18.3 Est GFR (Non-Af Amer) 15.8 BUN/Creatinine Ratio 8.2 L (10-20) Glucose 161 H (70-99) mg/dl Calcium 8.2 L (8.5-10.1) mg/dl Total Bilirubin 0.4 (0.2-1) mg/dl AST 13 L (15-37) U/L ALT 14 (12-78) U/L Alkaline Phosphatase 78 (45-117) U/L Total Protein 5.6 L (6.4-8.2) gm/dl Albumin 2.0 L (3.4-5.0) gm/dl Globulin 3.6 (2.5-4.0) gm/dl Albumin/Globulin Ratio 0.6 L (0.9-2) Salicylates (2.8-20) mg/dl Acetaminophen (10-30) ug/ml Ethyl Alcohol mg/dL (0-3) mg/dl BMP 07/22/20 18:17 Sodium 140 Potassium 3.5 Chloride 110 H Carbon Dioxide 24 BUN 34 H Creatinine 4.12 H Glucose 161 H Calcium 8.2 L Cardiac Enzymes 07/22/20 Range/Units 18:17 Troponin I 0.027 (0-0.045) ng/ml Liver Function 07/22/20 Range/Units 18:17 Total Bilirubin 0.4 (0.2-1) mg/dl AST 13 L (15-37) U/L ALT 14 (12-78) U/L Alkaline Phosphatase 78 (45-117) U/L Albumin 2.0 L (3.4-5.0) gm/dl Diagnostic Findings Head CT: IMPRESSION: No acute intracranial findings CT abd/pelvis: IMPRESSION: 1. No evidence of bowel obstruction. No evidence of free air. 2. No evidence of acute appendicitis. No evidence of acute diverticulitis. 3. Contracted gallbladder containing calculi/wall calcification versus gallbladder remnant in a postcholecystectomy patient 4. Mild body wall edema 5. Prominent disc osteophyte complexes at the T12-L1, and L4-L5 levels 6. There is borderline right colonic wall thickening and borderline rectal wall thickening. 7. Tiny nonobstructive right renal calculus CXR: pending ECG Rhythm: sinus tachycardia Supervising Physician Co-Signing Physician Notes IM ATTENDING : Patient seen and examined. History obtained from patient and records. Preceding documentation by Ms. Cely Lazaro PA-C reviewed. FINAL ASSESSMENT AND PLAN as follows : Hypertensive crisis Possible CVA (right lateral rectus palsy), possible aspirin failure ARF on CKD Acute on chronic anemia ? Secondary to CKD, stool Hemoccult negative DM 2 insulin requiring, well-controlled as of recent hemoglobin A1c of 7.20 May 2020 Hyperlipidemia on statin Rx Mood disorder, at baseline PCU Permissive hypertension until acute stroke ruled out Plavix for aspirin failure until stroke ruled out MRI/MRA brain, 2D echo, carotid Dopplers for stroke work-up Neurology consult RE right lateral rectus palsy Baseline UA, monitor creatinine response to IVF, hold home diuretics for now Nephrology consult, ARF on CKD Anemia work-up, transfuse PRBC if hemoglobin less than 8 and or for symptomatic anemia Basal insulin, ISS BG goal [id number], carb count coverage PT OT eval DVT prophylaxis. Heparin subcu Full code Text document was generated using [employer] voice recognition software. It may contain grammatical or spelling errors. Kindly contact undersigned for clarification of any documentation item in question.
[2020-07-22 22:30] LABS: Magnesium 2.1 mg/dl (1.8-2.4); Thyroid Stimulating Hormone 2.57 uIu/ml (0.300-4.500); Troponin I 0.027 ng/ml (0-0.045)
[2020-07-22] MEDS ORDERED: hydrALAZINE HCL 20 MG/ML VIAL IV STA (22:36)
[2020-07-22] MEDS: CLOPIDOGREL BISULFATE 75 MG TAB PO STA (23:42)
[2020-07-23] MEDS ORDERED: GLUCOSE 10 TABS/TUBE PO PRN (00:03)
[2020-07-23] MEDS ORDERED: CARBOHYDRATES FOR HYPOGLYCEMIA PO PRN (00:03)
[2020-07-23] MEDS ORDERED: GLUCOSE 40% GEL 15 GM TUBE PO PRN (00:03)
[2020-07-23] MEDS ORDERED: LACTATED RINGER'S 1,000 ML IV ONE (00:03)
[2020-07-23] MEDS ORDERED: ACETAMINOPHEN 325 MG TAB PO PRN (00:03)
[2020-07-23] MEDS ORDERED: traMADol HCL 50 MG TABLET PO PRN (00:03)
[2020-07-23] MEDS ORDERED: GLUCAGON FOR INJ 1 MG VIAL SQ PRN (00:03)
[2020-07-23] MEDS ORDERED: DEXTROSE 50% 50 ML SYRINGE IV PRN (00:03)
[2020-07-23] MEDS ORDERED: NITROGLYCERIN SL 0.4 MG/TAB TAB SL PRN (00:03)
[2020-07-23] MEDS ORDERED: FAMOTIDINE 20 MG TAB PO PRN (00:03)
[2020-07-23 00:24] LABS: Lyme Ab IgG w/WB Rflx Negative (Negative); Lyme Ab IgM w/WB Rflx Negative (Negative)
[2020-07-23] MEDS ORDERED: HYDROCODONE/ACETAMOPHEN 5/325MG TAB PO PRN (00:34)
[2020-07-23] MEDS: INSULIN ASPART 100 UNITS/ML 3 ML PEN SC SCH ×5 (02:41→20:51)
[2020-07-23 05:28] LABS: Appearance Urine Clear (Clear); Bilirubin Urine Negative (Negative); Blood Urine 2+ (Negative); Color Urine Yellow; Epithelial Cell Urine Auto >30 /lpf (0-5); Glucose Urine UA 2+ (Negative); Ketones Urine Trace (Negative); Leukocyte Esterase Urine Negative (Negative); Nitrite Urine Negative (Negative); Protein Urine 4+ (Negative); Specific Gravity Urine 1.025 (1.000-1.030); Urobilinogen Urine Negative (Negative); pH Urine 6.5 (4.5-7.5)
[2020-07-23] MEDS: HEPARIN SOD 5,000 UNIT/0.5 ML VIAL SQ SCH ×3 (05:30→20:50)
[2020-07-23 05:42] LABS: Bacteria Urine Automated 1+ (Negative)
[2020-07-23 05:44] LABS: Amphetamines+Metham, Urine Neg (Neg); Barbiturates, Urine Neg (Neg); Benzodiazepine, Urine Neg (Neg); Cocaine, Urine Neg (Neg); MDMA (Ecstacy), Urine Neg (Neg); Methadone, Urine Neg (Neg); Opiate, Urine Neg (Neg); Phencyclidine, Urine Neg (Neg)
[2020-07-23] MEDS ORDERED: PERFLUTREN LIPID MICROSPHERE (DEFINITY) IV ONE (07:19)
--- NOTE | 2020-07-23 07:41 | Magnetic Resonance Report ---
Brain MRA HISTORY: Stroke symptoms. cva TECHNIQUE: 3-D [id number] MRA of the brain was performed without contrast. COMPARISON STUDY: None. FINDINGS: Visualized intracranial internal carotid arteries, distal vertebral arteries, and basilar a rtery are widely patent. There is no significant stenosis, occlusion, or aneurysm seen within the gilbert ateral ACAs, MCAs, or outdoor adventure guides. Fenestrated/duplicated left A1 segment. IMPRESSION: No significant stenosis, occlusion, or aneurysm within the [place] of [place]. ACT 112: Negative or not required by law. Electronically signed by: Sourav Payne M.D. 07/23/2020 7:40 AM
--- NOTE | 2020-07-23 07:43 | Magnetic Resonance Report ---
Brain MRI WITHOUT CONTRAST HISTORY: Stroke symptoms. Dizziness. TECHNIQUE: Multiplanar multisequence MRI of the brain was performed without the use of contrast. COMPARISON STUDY: Head CT 07/22/2020. FINDINGS: There are no areas of restricted diffusion to suggest acute infarction. The midline structu res are intact. The paranasal sinuses are clear. Small bilateral mastoid effusions. The ventricles an d sulci are within normal limits for age. There is no mass, hematoma, midline shift. The major vascul ar flow-voids at the skull base are well maintained. IMPRESSION: No acute intracranial abnormality. Small bilateral mastoid effusions. ACT 112: Negative or not required by law. Electronically signed by: Sourav Payne M.D. 07/23/2020 7:42 AM
--- NOTE | 2020-07-23 07:45 | Ultrasound Report ---
BILATERAL CAROTID DOPPLER STUDY HISTORY: Dizziness. Stroke symptoms. COMPARISON: None. TECHNIQUE: Real-time, grayscale, and color Doppler sonography of the carotid arteries was performed. Imaging reviewed in the transverse and longitudinal planes. All measurements were calculated based on NASCET criteria. FINDINGS: Antegrade flow is seen in the bilateral vertebral arteries. The brachial pressures are hemodynamically similar. Minimal calcified plaque within the right carotid bifurcation. The peak systolic velocity within the right ICA is 116 cm/s. The right systolic ratio is 0.9. The peak systolic velocity within the left ICA is 104 cm/s. The left systolic ratio is 0.9. IMPRESSION: No hemodynamically significant stenosis seen within the carotid arteries. ACT 112: Negative or not required by law. Electronically signed by: Sourav Payne M.D. 07/23/2020 7:43 AM
--- NOTE | 2020-07-23 07:56 | XRay Report ---
XR chest 1V portable CLINICAL HISTORY: renal failure COMPARISON STUDY: 04/14/2020 FINDINGS: The cardiac and mediastinal contours are normal. There is no evidence of focal pulmonary co nsolidation. There is no evidence of failure. No pleural effusions are visualized.[ IMPRESSION: No active disease in the chest. ACT 112: Negative or not required by law. Electronically signed by: Ari Crandall M.D. 07/23/2020 7:55 AM
[2020-07-23] MEDS: ASPIRIN 81 MG ECTAB PO SCH (08:19)
[2020-07-23] MEDS: carvediloL 25 MG TAB PO SCH ×2 (08:19→20:51)
[2020-07-23] MEDS: amLODIPine BESYLATE 5 MG TAB PO SCH (08:19)
[2020-07-23] MEDS: ATORVASTATIN 40 MG TAB PO SCH (08:19)
[2020-07-23] MEDS: INSULIN GLARGINE SOLOSTAR 100 UNITS/ML 3 ML PEN SC SCH (08:19)
[2020-07-23] MEDS: hydrALAZINE TAB 50 MG TAB PO SCH ×2 (08:19→20:51)
[2020-07-23] MEDS: buPROPion XL 300 MG TABCR PO SCH (08:19)
[2020-07-23] MEDS ORDERED: CLOPIDOGREL BISULFATE 75 MG TAB PO SCH (09:00)
[2020-07-23 09:56] LABS: Basophils # (auto) 0.02 K/uL (0-0.2); Basophils % (auto) 0.3 %; Eosinophils # (auto) 0.05 K/uL (0-0.5); Eosinophils % (auto) 0.6 %; Hematocrit (blood only) 26.8 % (42-52); Hemoglobin 9.2 g/dL (14.0-18.0); Immature Granulocytes # (auto) 0.01 K/uL (0.00-0.02); Immature Granulocytes % (auto) 0.1 %; Lymphocytes # (auto) 1.36 K/uL (1.2-3.4); Lymphocytes % (auto) 17.4 %; Mean Corpuscular Hgb Conc 34.3 g/dL (32-36); Mean Corpuscular Volume 87.3 fL (80-100); Mean Platelet Volume 9.6 fL (7.4-10.4); Monocytes # (auto) 0.33 K/uL (0.11-0.59); Monocytes % (auto) 4.2 %; Neutrophils # (auto) 6.05 K/uL (1.4-6.5); Neutrophils % (auto) 77.4 %; Platelet Count 308 K/uL (130-400); RDW Coefficient of Variation 15.2 % (11.5-14.5); RDW Standard Deviation 48.7 fL (36.4-46.3); Red Blood Count 3.07 M/uL (4.7-6.1); Reticulocyte % 1.5 % (0.5-2.0); Reticulocytes # 0.05 10^6/uL (0.02-0.10); White Blood Count 7.82 K/uL (4.8-10.8)
[2020-07-23 10:16] LABS: BUN Creatinine Ratio 8.8 (10-20); Calcium 7.8 mg/dl (8.5-10.1); Est GFR (Non-African American) 16.4; Potassium 3.1 mmol/L (3.5-5.1)
[2020-07-23 10:21] LABS: Ferritin 294.8 ng/ml (8-388)
--- NOTE | 2020-07-23 10:40 | Nephrology Consultation ---
Date of Consultation July 23, 2020 Assessment & Plan (1) Acute on chronic renal failure: rapidly progressive CKD from longstanding poorly controlled diabetes and HTN > had been advanced stage 4 as of last month with eGFR 15-20 mL /min >> now currently w/ creatinine hovering at about 4 which may be MARCOS on CKD or may be his new baseline given his rapid progression, in which case he would be crossing over to stage 5 -no emergent need for dialysis but cannot rule out need this admission; he will in any event almost certainly be on dialysis in the coming months given his clinical progression and nonadherence to medical recommendations -daily bmp -continue nephrotoxin avoidance unless life/limb saving -focus on bp control Present on Admission?: Yes (2) Hypertensive urgency: goal sbp today is 160-180s. > he has completely normalized today with resuming OP bp meds and is even below target >> concern for nonadherence to OP medications given how easily he has controlled even low bp here -hold CCB and /or hydralazine for sbp < 150 -cont coreg current dose -cont to hold lasix -for now cont LR as would not want SBP any lower; stop this if sbp > 150s Present on Admission?: Yes (3) Nephrotic syndrome: drives worsening renal function and repeated HTN urgency; from diabetic nephropathy and HTN sclerosis Present on Admission?: Yes (4) Visual disturbances: chronic but per report acutely worsened recently. no structural findings on imaging from admission -f/u neuro recs > OP neurooptho eval, eyepatch, PT evals, OP EMG -per primary service Present on Admission?: Yes History of Present Illness Reason for Consultation: MARCOS on CKD Requesting Physician: Dr Shannon Attending Physician: Ricardo Macias MD History of Present Illness 50 y/o M whom I'm asked to see for MARCOS on CKD was admitted overnight for HTN urgency and R eye palsy after presenting w/ several weeks of worsening chronic dizziness and chronic diplopia. PMH includes DM on insulin w/ retinopathy and nephropathy, recurrent MARCOS with rapidly progressive CKD now CKD 4 w/ eGFR hovering at about 15-20 ml/min, hypertension, past stroke w/ residual poor vision of L eye, chronic ambulatory dysfunction and near-daily dizziness reported as OP, chronic back pain, depression. Admitted here for HTN urgency and MARCOS on CKD both from nephrotic syndrome in late March > never really had renal recovery unfortunately. We have been repeatedly asking pt in CKD clinic to prepare for HD: however he has repeatedly refused dialysis education and apparently last month cancelled the appt we had agreed upon w/ him to see vascular to begin dialysis access creation. Dizziness worsened after EtOH on ; did have some emesis w/ this prior to admission. His creatinine as OP peaked at 4.2 in april, down trending to 3.3 mid may. HIs presenting creatinine was 4.1 yesterday, 4.0 today. His bp on presentation yesterday was 200-210s/110-160s. treated w/ labetalol intermittently IV. No sob, no abd pain, no n/v, no focal weakness, no altered MS. Denies missed medications prior to admission. Repeatedly denies nsaid use; though he has often endorsed using them in the past despite repeated advice against this. First began to experience double vision a few months ago and then developed dizziness a few days ago after drinking alcohol on . Was nauseated with some vomiting that has since resolved. Also endorses feeling his legs go weak intermittently but states that has been going on for years now. Did recently see eye doctor and was told to return for follow up testing. Follows with nephrology and is scheduled for vascular surgery appointment in [place] for HD access. Cr ~high 3s-4 since April. Patient's fiance manages medication but he believes he has been taking medication as scheduled, including blood pressure medications. Currently he is getting hydralazine 50 mg bid, coreg 25 mg bid, amlodipine 5 mg daily after having in ER a L of NS, 2 doses 10 mg labetalol , 10 mg hydrlazine overnight. his OP lasix 40 mg bid has been held. K was repleted; he is receiving LR at 50 ml/hr. His bp today on daylight is 120s. Allergies Allergy/AdvReac Type Severity Reaction Status Date / Time No Known Allergies Allergy Verified 07/22/20 16:50 Home Medications Medication Instructions Recorded Confirmed Type amlodipine 5 mg PO DAILY 04/14/20 07/22/20 History aspirin [Aspirin Low Dose] 81 mg PO DAILY 04/14/20 07/22/20 History atorvastatin 80 mg PO DAILY 04/14/20 07/22/20 History bupropion HCl 300 mg PO DAILY 04/14/20 07/22/20 History cholecalciferol (vitamin D3) 50 mcg PO DAILY 04/14/20 07/22/20 History ergocalciferol (vitamin D2) 1,250 mcg PO WK 04/14/20 07/22/20 History fenofibrate nanocrystallized 145 mg PO DAILY 04/14/20 07/22/20 History triamcinolone acetonide 1 applic TOPICAL BID 04/14/20 07/22/20 History acetaminophen 650 mg PO Q4H PRN #50 tab 04/18/20 07/22/20 Rx insulin aspart U-100 [Novolog 5 unit SC AC #15 ml 04/18/20 07/22/20 Rx Flexpen U-100 Insulin] carvedilol 25 mg PO BID #60 tab 04/19/20 07/22/20 Rx furosemide [Lasix] 40 mg PO BID #60 tab 04/19/20 07/22/20 Rx hydralazine 50 mg PO BID #60 tab 04/19/20 07/22/20 Rx famotidine [Pepcid] 20 mg PO BID PRN #60 tab 05/27/20 07/22/20 Rx hydrocodone-acetaminophen [[place]] 1 tab PO Q6H PRN #10 tab 05/27/20 07/22/20 Rx Lantus Solostar U-100 Insulin 25 unit SUBCUT QAM 07/22/20 07/22/20 History Patient History Medical History (Updated 07/23/20 @ 16:58 by Tania Noble PA-C) Anemia Chronic back pain CKD (chronic kidney disease) stage 4, GFR 15-29 ml/min Depression HTN (hypertension) Insulin dependent diabetes mellitus Nephrotic syndrome Proteinuria, unspecified nephrotic range Surgical History No significant past surgical history Family History Father Diabetes Mother Diabetes Social History Smoking Status: Never smoker Tobacco Type: Smokeless Tobacco (Dip or Chew) Second Hand Exposure: No; Do You Dip or Chew Tobacco: Yes; Tobacco Cessation Education Requested by Patient: No Hx Alcohol Use: Yes Hx Substance Use: No Preferred Language: Yoruba Communication Ability: Effective Bow Maker Production Required: No Beliefs That Will Affect Care: None Current Living Situation: Other Current Living Situation Comment: "friends" Other Information That Helps Us Care for You: No Feels Safe at Home: Yes Safety Concerns: Feels Safe At This Time Assistive Devices: Cane and Walker Review of Systems Review of Systems: All systems reviewed & are unremarkable except as noted in HPI & below and All systems reviewed & are unremarkable except as noted in Subjective Physical Exam Constitutional: well developed and well nourished; no acute distress on RA maneuvers readily for exam Eyes: + EOM not intact (R eye does not ABduct) ENMT: Ears: no external ear abnormality Nose: no external nose abnormality Mouth: + dry oral mucous membranes Neck: no nuchal rigidity Respiratory: normal respiratory effort Auscultation: lungs clear to auscultation bilaterally and + diminished lung sounds Cardiovascular: RRR, no murmur, no edema Gastrointestinal (Abdomen): Inspection/Auscultation: normal bowel sounds Percussion/Palpation: abdomen soft; abdomen nontender Musculoskeletal: Extremities: strength 5/5 throughout Skin: no rashes, warm and dry Neurologic: summers, fluent speech, no tremor Psychiatric: Orientation: alert and oriented x 3 Speech: normal rate/rhythm/volume of speech Affect: + blunted affect Results & Data ([facility]) Vital Signs (Past 12 Hours) Vital Signs Temp Pulse Resp BP BP Pulse Ox 07/23/20 08:40 36.7 C 98 H 20 175/86 H 97 07/23/20 03:29 174/79 H 07/23/20 02:16 36.6 C 97 H 17 194/92 H 100 07/22/20 23:49 92 H 20 163/74 H 100 07/22/20 23:01 89 20 179/95 H 100 07/22/20 22:31 84 20 207/112 H 100 Laboratory Results 07/23/20 09:35 07/23/20 09:[address] abd/pelvis non con 1. No evidence of bowel obstruction. No evidence of free air. 2. No evidence of acute appendicitis. No evidence of acute diverticulitis. 3. Contracted gallbladder containing calculi/wall calcification versus gallbladder remnant in a postcholecystectomy patient 4. Mild body wall edema 5. Prominent disc osteophyte complexes at the T12-L1, and L4-L5 levels 6. There is borderline right colonic wall thickening and borderline rectal wall thickening. 7. Tiny nonobstructive right renal calculus Head CT, Brain MRI/MRA, carotid dopplers, CXR >> all w/o acute processes (1) Acute on chronic renal failure Acute renal failure type: unspecified Chronic kidney disease stage: stage 4 (severe) Qualified Code(s): N17.9 - Acute kidney failure, unspecified; N18.4 - Chronic kidney disease, stage 4 (severe)
[2020-07-23] MEDS ORDERED: POTASSIUM CHLORIDE CRTAB 20 MEQ TABCR PO ONE (11:00)
[2020-07-23 11:18] LABS: Folate (Folic Acid) 11.9 ng/ml (>5.38)
--- NOTE | 2020-07-23 12:13 | Electrocardiogram Report ---
Test Reason : Blood Pressure : / mmHG Vent. Rate : 109 BPM Atrial Rate : 109 BPM P-R Int : 134 ms QRS Dur : 088 ms QT Int : 354 ms P-R-T Axes : 065 -35 055 degrees QTc Int : 476 ms Sinus tachycardia Left axis deviation Septal infarct (cited on or before 27-MAY-2020) Abnormal ECG When compared with ECG of 27-MAY-2020 21:20, No significant change was found Confirmed by Hammad Brown ([id number]) on 07/23/2020 12:12:51 PM Referred By: REFERRED SELF Confirmed By:Hammad Brown
--- NOTE | 2020-07-23 16:14 | Neurology Consultation ---
Date of Consultation July 23, 2020 Assessment & Plan (1) Palsy of right sixth cranial nerve on examination: 1. needs neuro ophthalmology appointment as outpatient 2. no evidence on MRI lesions or stroke 3. patch eye alternating to avoid strain Present on Admission?: Yes (2) Dizziness: 1. positive teofilo - have PT assess and treat for BPPV 2. continue aspirin 81 mg for stroke preventions Present on Admission?: Yes (3) Acute renal failure: 1. nephrology- excalation of CKD IV - HD appointment for port placement in [place] Present on Admission?: Yes (4) Gait abnormality: 1. assessment by PT for discharge needs 2. will schedule an outpatient EMG appointment for further assessment. 3. may need imaging for back pain and right leg weakness Present on Admission?: Yes Supervising Physician Co-Signing Physician Notes I have seen and discussed above patient with Dr Tania Gavin, neurology. See dict note. Sarah [place] History of Present Illness Reason for Consultation: right lateral rectus palsy Requesting Physician: Ricardo Macias MD Attending Physician: Ricardo Macias MD History of Present Illness Marlo is a 50 year old male with PMH DM2 on insulin, HTN, diabetic retinopathy of both eyes, h/o CVA with poor vision of L eye, CKD III-IV, depression. He presents to the ED with worsening diplopia and dizziness x few weeks. The double vision started a few months ago and then developed dizziness a few days ago after drinking alcohol on . He had nausea with some vomiting which has resolved. He feels his legs go weak intermittently but states that has been going on for years now. His stone dresser has referred him for fistula to start HD. He thinks he is taking all his medications as directed. denies CP, SOB, abdominal pain, +double vision clears with patching one eye, right leg weakness. Allergies Allergy/AdvReac Type Severity Reaction Status Date / Time No Known Allergies Allergy Verified 07/22/20 16:50 Home Medications Medication Instructions Recorded Confirmed Type amlodipine 5 mg PO DAILY 04/14/20 07/22/20 History aspirin [Aspirin Low Dose] 81 mg PO DAILY 04/14/20 07/22/20 History atorvastatin 80 mg PO DAILY 04/14/20 07/22/20 History bupropion HCl 300 mg PO DAILY 04/14/20 07/22/20 History cholecalciferol (vitamin D3) 50 mcg PO DAILY 04/14/20 07/22/20 History ergocalciferol (vitamin D2) 1,250 mcg PO WK 04/14/20 07/22/20 History fenofibrate nanocrystallized 145 mg PO DAILY 04/14/20 07/22/20 History triamcinolone acetonide 1 applic TOPICAL BID 04/14/20 07/22/20 History acetaminophen 650 mg PO Q4H PRN #50 tab 04/18/20 07/22/20 Rx insulin aspart U-100 [Novolog 5 unit SC AC #15 ml 04/18/20 07/22/20 Rx Flexpen U-100 Insulin] carvedilol 25 mg PO BID #60 tab 04/19/20 07/22/20 Rx furosemide [Lasix] 40 mg PO BID #60 tab 04/19/20 07/22/20 Rx hydralazine 50 mg PO BID #60 tab 04/19/20 07/22/20 Rx famotidine [Pepcid] 20 mg PO BID PRN #60 tab 05/27/20 07/22/20 Rx hydrocodone-acetaminophen [[place]] 1 tab PO Q6H PRN #10 tab 05/27/20 07/22/20 Rx Lantus Solostar U-100 Insulin 25 unit SUBCUT QAM 07/22/20 07/22/20 History Patient History Medical History (Updated 07/23/20 @ 16:58 by Tania Noble PA-C) Anemia Chronic back pain CKD (chronic kidney disease) stage 4, GFR 15-29 ml/min Depression HTN (hypertension) Insulin dependent diabetes mellitus Nephrotic syndrome Proteinuria, unspecified nephrotic range Surgical History No significant past surgical history Family History Father Diabetes Mother Diabetes Social History Smoking Status: Never smoker Tobacco Type: Smokeless Tobacco (Dip or Chew) Second Hand Exposure: No; Do You Dip or Chew Tobacco: Yes; Tobacco Cessation Education Requested by Patient: No Hx Alcohol Use: Yes Hx Substance Use: No Preferred Language: Marshallese Communication Ability: Effective Kosher Inspector Required: No Beliefs That Will Affect Care: None Current Living Situation: Other Current Living Situation Comment: "friends" Other Information That Helps Us Care for You: No Feels Safe at Home: Yes Safety Concerns: Feels Safe At This Time Assistive Devices: Cane and Walker Physical Exam Physical Exam: Physical Exam: Constitutional: appearance over nourished Ears, Nose, Mouth and Throat: mucous membranes moist, no injection and skin normal, eyes normal Cardiovascular: normal S-1 and S-2 and regular rate and rhythm Respiratory: clear to auscultation (CTA) and no rales, ronchi or wheeze Musculoskeletal: no peripheral edema and good distal pulses Skin: no stigmata of neurocutaneous disease noted and normal and intact Eyes: extraocular muscles intact (EOMI) and pupils equal, round and reactive to light (PERRL), right lateral gaze decreased with ptosis NEUROLOGIC EXAMINATION: Mental status: Alert but not completely orients Oriented to [facility], 2020, Oriented to person Speech difficulty giving location or where he lives Cranial Nerves symmetry face and eye brow raise Reflexes: Deep tendon reflexes were decreased bilaterally Sensory: decreased to light and cool bilaterally LE GT proprioception decreased bilaterally Coordination: heel to pascual intact Gait/Stance: Posture lying in bed, Teofilo with right sided symptoms x 2 Motor: Negative for pronator drift of out stretched arms with eyes closed Strength: biceps triceps hand software firmware engineer bilaterally 5/5, hip flex right 4/5, left 5/5, plantar flex ext bilaterally 5/5 Results & Data ([facility]) Vital Signs (Past 12 Hours) Vital Signs Temp Pulse Resp BP Pulse Ox 07/23/20 15:25 36.4 C L 80 19 120/65 99 07/23/20 11:00 36.7 C 77 19 120/55 L 98 07/23/20 08:40 36.7 C 98 H 20 175/86 H 97 Laboratory Results Abnormal lab results 07/22/20 07/22/20 07/22/20 Range/Units 18:17 18:17 18:17 RBC 3.64 L (4.7-6.1) M/uL Hgb 10.8 L (14.0-18.0) g/dL Hct 31.9 L (42-52) % RDW Std Deviation 49.2 H (36.4-46.3) fL RDW Coeff of Luz 15.2 H (11.5-14.5) % Neut # (Auto) 7.40 H (1.4-6.5) K/uL Potassium (3.5-5.1) mmol/L Chloride 110 H (98-107) mmol/L Carbon Dioxide (21-32) mmol/L BUN 34 H (7-18) mg/dl Creatinine 4.12 H (0.6-1.4) mg/dl BUN/Creatinine Ratio 8.2 L (10-20) Glucose 161 H (70-99) mg/dl POC Glucose (70-99) mg/dl Calcium 8.2 L (8.5-10.1) mg/dl TIBC (250-450) mcg/dl Transferrin (200-360) mg/dl AST 13 L (15-37) U/L Total Protein 5.6 L (6.4-8.2) gm/dl Albumin 2.0 L (3.4-5.0) gm/dl Albumin/Globulin Ratio 0.6 L (0.9-2) Urine Protein (Negative) Urine Glucose (UA) (Negative) Urine Ketones (Negative) Urine Blood (Negative) Urine RBC (Auto) (0-4) /hpf U Epithel Cells (Auto) (0-5) /lpf Urine Bacteria (Auto) (Negative) Salicylates < 1.7 L (2.8-20) mg/dl Acetaminophen 3 L (10-30) ug/ml 07/23/20 07/23/20 07/23/20 Range/Units 02:19 05:15 07:40 RBC (4.7-6.1) M/uL Hgb (14.0-18.0) g/dL Hct (42-52) % RDW Std Deviation (36.4-46.3) fL RDW Coeff of Luz (11.5-14.5) % Neut # (Auto) (1.4-6.5) K/uL Potassium (3.5-5.1) mmol/L Chloride (98-107) mmol/L Carbon Dioxide (21-32) mmol/L BUN (7-18) mg/dl Creatinine (0.6-1.4) mg/dl BUN/Creatinine Ratio (10-20) Glucose (70-99) mg/dl POC Glucose 191 H 148 H (70-99) mg/dl Calcium (8.5-10.1) mg/dl TIBC (250-450) mcg/dl Transferrin (200-360) mg/dl AST (15-37) U/L Total Protein (6.4-8.2) gm/dl Albumin (3.4-5.0) gm/dl Albumin/Globulin Ratio (0.9-2) Urine Protein 4+ H (Negative) Urine Glucose (UA) 2+ H (Negative) Urine Ketones Trace H (Negative) Urine Blood 2+ H (Negative) Urine RBC (Auto) 5-10 H (0-4) /hpf U Epithel Cells (Auto) >30 H (0-5) /lpf Urine Bacteria (Auto) 1+ H (Negative) Salicylates (2.8-20) mg/dl Acetaminophen (10-30) ug/ml 07/23/20 07/23/20 07/23/20 Range/Units 09:35 09:35 11:10 RBC 3.07 L (4.7-6.1) M/uL Hgb 9.2 L (14.0-18.0) g/dL Hct 26.8 L (42-52) % RDW Std Deviation 48.7 H (36.4-46.3) fL RDW Coeff of Luz 15.2 H (11.5-14.5) % Neut # (Auto) (1.4-6.5) K/uL Potassium 3.1 L (3.5-5.1) mmol/L Chloride 112 H (98-107) mmol/L Carbon Dioxide 20 L (21-32) mmol/L BUN 35 H (7-18) mg/dl Creatinine 3.99 H (0.6-1.4) mg/dl BUN/Creatinine Ratio 8.8 L (10-20) Glucose 145 H (70-99) mg/dl POC Glucose 132 H (70-99) mg/dl Calcium 7.8 L (8.5-10.1) mg/dl TIBC 142 L (250-450) mcg/dl Transferrin 117 L (200-360) mg/dl AST (15-37) U/L Total Protein (6.4-8.2) gm/dl Albumin (3.4-5.0) gm/dl Albumin/Globulin Ratio (0.9-2) Urine Protein (Negative) Urine Glucose (UA) (Negative) Urine Ketones (Negative) Urine Blood (Negative) Urine RBC (Auto) (0-4) /hpf U Epithel Cells (Auto) (0-5) /lpf Urine Bacteria (Auto) (Negative) Salicylates (2.8-20) mg/dl Acetaminophen (10-30) ug/ml 07/23/20 Range/Units 15:57 RBC (4.7-6.1) M/uL Hgb (14.0-18.0) g/dL Hct (42-52) % RDW Std Deviation (36.4-46.3) fL RDW Coeff of Luz (11.5-14.5) % Neut # (Auto) (1.4-6.5) K/uL Potassium (3.5-5.1) mmol/L Chloride (98-107) mmol/L Carbon Dioxide (21-32) mmol/L BUN (7-18) mg/dl Creatinine (0.6-1.4) mg/dl BUN/Creatinine Ratio (10-20) Glucose (70-99) mg/dl POC Glucose 128 H (70-99) mg/dl Calcium (8.5-10.1) mg/dl TIBC (250-450) mcg/dl Transferrin (200-360) mg/dl AST (15-37) U/L Total Protein (6.4-8.2) gm/dl Albumin (3.4-5.0) gm/dl Albumin/Globulin Ratio (0.9-2) Urine Protein (Negative) Urine Glucose (UA) (Negative) Urine Ketones (Negative) Urine Blood (Negative) Urine RBC (Auto) (0-4) /hpf U Epithel Cells (Auto) (0-5) /lpf Urine Bacteria (Auto) (Negative) Salicylates (2.8-20) mg/dl Acetaminophen (10-30) ug/ml Diagnostic Findings MRI brain -No acute intracranial abnormality. Small bilateral mastoid effusions. carotid doppler no significant stenosis MRA no significant stenosis TTE- EF 65-70 % no ASD (1) Acute renal failure Acute renal failure type: unspecified Qualified Code(s): N17.9 - Acute kidney failure, unspecified
--- NOTE | 2020-07-23 19:56 | Hospitalist Progress Note ---
Date of Service July 23, 2020 Assessment & Plan (1) Hypertensive urgency: Hypertensive urgency CT Head:No acute intracranial findings ? Compliance to medications Continue amlodipine, Coreg, hydralazine Bp much better today Lasix on hold due to MARCOS Stroke like symptoms Right leg weakness, Dizziness Blood/Double Vision: ? 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 Small bilateral mastoid effusions. Carotid Doppler:No hemodynamically significant stenosis seen within the carotid arteries. MRA Brain:No significant stenosis, occlusion, or aneurysm within the [place]. Continue aspirin, statin Neurology consulted May need neuro-ophthalmology evaluation as outpatient PT for Shaye for possible BPPV PT/OT May need EMG as outpatient MARCOS on CKD IV Nephrolytic Syndrome Cr:3.99 Hold diuretics Avoid nephrotoxic agents as able Monitor renal function Appreciate nephrology input No urgent need for dialysis Hypokalemia Normal magnesium levels Replete tablets as needed DM II Last HbA1C:7.2 on Jun 07 Continue insulin therapy Monitor BGs Anemia of chronic disease No acute bleeding issues Monitor Hyperlipidemia Continue statin Mood disorder Continue home medication Abnormal UA R/O UTI Urine culture pending Consider antibiotics if needed DVT Px: Heparin SQ Code Status Full Code Disposition PT/OT prior to discharge Admission and Anticipated Discharge Date Admission Date: July 22, 2020 Subjective Patient is seen and examined at bedside Reports dizziness, blurry, double vision Orthostatics positive on exam Seems to be intermittently confused during my encounter States having right leg weakness Had an episode of vomiting this morning Denies chest pain, shortness of breath, abdominal pain Offers no other complaints Review of Systems Review of Systems: All systems reviewed & are unremarkable except as noted in HPI & below Physical Exam Physical Exam: Physical Exam: Vitals signs as noted above General Appearance:Moderately built and nourished, no apparent distress Head: normocephalic, Atraumatic Eyes: normal inspection, EOMI Neck: supple, Trachea midline Respiratory/Chest: Normal breath sounds, CTA Cardiovascular: S1, S2, No murmur Abdomen/GI:Soft, Non tender, Bowel sounds present Extremities/Musculoskelatal:normal inspection, no edema Neurologic/Psych:Alert, awake, + intermittent confusion, Right leg weakness 2/5, +Blurry, Double vision Skin: normal color, warm Results & Data Results & Data ([facility]) Vital Signs (Past 12 Hours) Vital Signs Temp Pulse Resp BP Pulse Ox 07/23/20 15:25 36.4 C L 80 19 120/65 99 07/23/20 11:00 36.7 C 77 19 120/55 L 98 07/23/20 08:40 36.7 C 98 H 20 175/86 H 97 Laboratory Results Short CBC 07/23/20 Range/Units 09:35 WBC 7.82 (4.8-10.8) K/uL Hgb 9.2 L (14.0-18.0) g/dL Hct 26.8 L (42-52) % Plt Count 308 (130-400) K/uL BMP 07/22/20 07/23/20 18:17 09:35 Sodium 140 Potassium 3.1 L Chloride 112 H Carbon Dioxide 20 L BUN 35 H Creatinine 3.99 H Glucose 161 H 145 H Calcium 7.8 L Cardiac Enzymes 07/22/20 Range/Units 18:17 Troponin I 0.027 (0-0.045) ng/ml Liver Function 07/22/20 Range/Units 18:17 Total Bilirubin 0.4 (0.2-1) mg/dl Alkaline Phosphatase 78 (45-117) U/L Urine 07/23/20 Range/Units 05:15 Urine Color Yellow Urine Appearance Clear (Clear) Urine pH 6.5 (4.5-7.5) Ur Specific [place] 1.025 (1.000-1.030) Urine Protein 4+ H (Negative) Urine Glucose (UA) 2+ H (Negative)
[2020-07-23] MEDS: cefTRIAXone SODIUM 1,000 MG in DEXTROSE 5% 50 ML IV SCH (20:50)
--- NOTE | 2020-07-23 22:47 | Progress Notes ---
DATE: 07/23/2020 ADDENDUM. We were asked to see the patient for double vision and dizziness. HISTORY OF PRESENT ILLNESS: The patient is a known longstanding diabetic with end-stage renal failure and hypertension. The patient is indicated 6 or so weeks of double vision with images side by side, not accompanied by other neurologic symptoms. This apparently came on suddenly. It was painless. He has not had a prior cranial neuropathy. No history of cancer, has not had Lyme disease or tick bite. He came in yesterday due to dizziness with the change in head position. No otologic symptoms were noted and no new neurologic symptoms were noted. It is known that he has ambulatory dysfunction; however, he is a somewhat poor historian, but by report, he has had right leg weakness of unclear duration. I believe it to have been painless, although he does apparently have chronic back pain. His MRI of the brain, noncontrast given his renal insufficiency showed no acute abnormalities. MRA of the head showed no significant stenosis or occlusion, or aneurysm within the [place] of [place] and carotid ultrasound showed no hemodynamically significant stenosis. PHYSICAL EXAMINATION: GENERAL: He is awake and alert. Poor historian. NEUROLOGIC: Speech and language are normal. Provocative head maneuvers with head hanging to the right appear to reproduce his dizziness with some latency and fatigability. His pupils were equal. I appreciated no papilledema. There are normal aponte, motility is notable for a right 6th nerve palsy. No ptosis is noted. There is normal facial symmetry. Normal facial sensation. Tongue is midline. Motor: Full strength in the bilateral uppers and left lower. There appears to be some weakness of the right iliopsoas and quadriceps sparing the adductors. Knee jerks and ankle jerks are absent. Toes are downgoing. [id number] and [id number] is nondystaxic. Gait was not testable. 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 The patient has no history of cancer to suspect this is a meningeal related process such as carcinomatous meningitis. No evidence of meningitis clinically, no evidence of increased intracranial pressure. Would recommend checking a Lyme titer. Would recommend having him see ophthalmology and would recommend that he see us in followup. We can be reassured that if this is a typical vascular 6th nerve palsy that it improves or resolves. The etiology of the patient's dizziness is somewhat unclear. He did present with hypertensive urgency. There was some clinical suggestion that this is BPPV. Recommend Shaye maneuver with physical therapy. The patient has chronic weakness in the right lower extremity. There is a sense that there may be a femoral neuropathy. 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 Again, the patient's history giving is poor and I would therefore recommend further evaluation in part with nerve conduction EMG and potentially MRI of the lumbar spine, would recommend antiplatelet therapy with aspirin simply because of the patient's significant vascular risk factors.
[2020-07-24] MEDS ORDERED: LACTATED RINGER'S 1,000 ML IV ONE (01:00)
[2020-07-24] MEDS: HEPARIN SOD 5,000 UNIT/0.5 ML VIAL SQ SCH ×3 (05:04→20:34)
[2020-07-24 06:31] LABS: Hematocrit (blood only) 28.7 % (42-52); Hemoglobin 9.8 g/dL (14.0-18.0); Mean Corpuscular Hemoglobin 30.1 pg (25-34); Mean Corpuscular Hgb Conc 34.1 g/dL (32-36); Mean Platelet Volume 9.5 fL (7.4-10.4); Platelet Count 344 K/uL (130-400); RDW Coefficient of Variation 15.4 % (11.5-14.5); RDW Standard Deviation 50.4 fL (36.4-46.3); Red Blood Count 3.26 M/uL (4.7-6.1); White Blood Count 9.27 K/uL (4.8-10.8)
[2020-07-24 07:11] LABS: BUN Creatinine Ratio 7.7 (10-20); Calcium 8.2 mg/dl (8.5-10.1); Creatinine Clr Calc Pharmacy 20.1 ml/min; Est GFR (African American) 16.7; Est GFR (Non-African American) 14.5; Potassium 3.7 mmol/L (3.5-5.1)
[2020-07-24] MEDS: hydrALAZINE TAB 50 MG TAB PO SCH (08:26)
[2020-07-24] MEDS: carvediloL 25 MG TAB PO SCH ×2 (08:26→20:33)
[2020-07-24] MEDS: ATORVASTATIN 40 MG TAB PO SCH (08:27)
[2020-07-24] MEDS: buPROPion XL 300 MG TABCR PO SCH (08:27)
[2020-07-24] MEDS: amLODIPine BESYLATE 5 MG TAB PO SCH (08:27)
[2020-07-24] MEDS: ASPIRIN 81 MG ECTAB PO SCH (08:27)
[2020-07-24] MEDS: INSULIN GLARGINE SOLOSTAR 100 UNITS/ML 3 ML PEN SC SCH (08:29)
[2020-07-24] MEDS: INSULIN ASPART 100 UNITS/ML 3 ML PEN SC SCH ×4 (08:30→21:40)
--- NOTE | 2020-07-24 10:08 | Nephrology Progress Note ---
Date of Service July 24, 2020 Assessment & Plan (1) Acute on chronic renal failure: rapidly progressive CKD from longstanding poorly controlled diabetes and HTN > had been advanced stage 4 as of last month with eGFR 15-20 mL /min >> now currently w/ creatinine hovering at about 4 which may be MARCOS on CKD or may be his new baseline given his rapid progression, in which case he would be crossing over to stage 5 -no emergent need for dialysis but cannot rule out need this admission; he will in any event almost certainly be on dialysis in the coming months given his clinical progression and nonadherence to medical recommendations -daily bmp -continue nephrotoxin avoidance unless life/limb saving -focus on bp control (2) Hypertensive urgency: goal sbp today is 160-180s > he briefly normalized and now is elevated again despite normal OP meds; had another low point today -hold CCB and /or hydralazine for sbp < 150 -cont coreg current dose -cont to hold lasix -stopped LR -upped CCB to 10 mg daily and hydralazine to 75 mg bid starting this am (3) Nephrotic syndrome: drives worsening renal function and repeated HTN urgency; from diabetic nephropathy and HTN sclerosis (4) Visual disturbances: chronic but per report acutely worsened recently. no structural findings on imaging from admission -f/u neuro recs > OP neurooptho eval, eyepatch, PT evals, OP EMG -per primary service Admission and Anticipated Discharge Date Admission Date: July 22, 2020 Subjective no complaints; stable chronic vis disturbances. refused to stand for nursing and for PT/OT > states too weak, "my legs feel like jello." no sob, no n/v Review of Systems Review of Systems: All systems reviewed & are unremarkable except as noted in Subjective Physical Exam Constitutional: well developed and well nourished; no acute distress Eyes: + EOM not intact (R eye does not ABduct) ENMT: Ears: no external ear abnormality Nose: no external nose abnormality Mouth: + dry oral mucous membranes Neck: no nuchal rigidity Respiratory: normal respiratory effort Auscultation: lungs clear to auscultation bilaterally and + diminished lung sounds Cardiovascular: RRR, no murmur, no edema Gastrointestinal (Abdomen): Inspection/Auscultation: normal bowel sounds Percussion/Palpation: abdomen soft; abdomen nontender Musculoskeletal: Extremities: strength 5/5 throughout Skin: no rashes, warm and dry Neurologic: summers, limited but fluent speech; PT findings noted Psychiatric: Orientation: alert and oriented x 3 Speech: normal rate/rhythm/volume of speech Affect: + blunted affect Results & Data ([facility]) Vital Signs (Past 12 Hours) Vital Signs Temp Pulse Resp BP BP Pulse Ox 07/24/20 07:05 36.4 C L 90 16 162/84 H 98 07/24/20 05:04 36.8 C 85 20 173/84 H 98 07/24/20 00:00 36.7 C 82 20 157/72 H 98 Laboratory Results 07/24/20 06:16 07/24/20 06:16 (1) Acute on chronic renal failure Acute renal failure type: unspecified Chronic kidney disease stage: stage 4 (severe) Qualified Code(s): N17.9 - Acute kidney failure, unspecified; N18.4 - Chronic kidney disease, stage 4 (severe)
[2020-07-24] MEDS ORDERED: hydrALAZINE HCL 25 MG TAB PO ONE (10:30)
[2020-07-24] MEDS ORDERED: amLODIPine BESYLATE 5 MG TAB PO ONE (10:45)
--- NOTE | 2020-07-24 13:53 | Hospitalist Progress Note ---
Date of Service July 24, 2020 Assessment & Plan (1) Hypertensive urgency: Hypertensive urgency CT Head:No acute intracranial findings ?Compliance to medications Continue amlodipine, Coreg, hydralazine Bp up today Lasix on hold due to MARCOS Stroke like symptoms Right leg weakness-he told me this was not new, Dizziness Blood/Double Vision: ? 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 Small bilateral mastoid effusions. Carotid Doppler:No hemodynamically significant stenosis seen within the carotid arteries. MRA Brain:No significant stenosis, occlusion, or aneurysm within the [place] of [place]. Continue aspirin, statin Neurology consulted May need neuro-ophthalmology evaluation as outpatient PT for Shaye for possible BPPV PT/OT May need EMG as outpatient MARCOS on CKD IV Nephrolytic Syndrome Cr:3.99 yesterday and higher today Hold diuretics Avoid nephrotoxic agents as able Monitor renal function Appreciate nephrology input No urgent need for dialysis Hypokalemia Normal magnesium levels Replete tablets as needed DM II Last HbA1C:7.2 on Jun 07 Continue insulin therapy Monitor BGs Anemia of chronic disease No acute bleeding issues Monitor Hyperlipidemia Continue statin Mood disorder Continue home medication Abnormal UA R/O UTI Urine culture pending Consider antibiotics if needed DVT Px: Heparin SQ Code Status Full Code Disposition PT/OT prior to discharge Labs checked ROS-No Headache, No Visual Changes, No Nausea, No Vomiting, No Fever, No Chills, No Neck Pain or Stiffness, No Chest Pain, No Palpitations, No SOB, No CHANEY, No Cough, No Sputum, No Wheezing, No Abdominal Pain, No Diarrhea, No Hematemesis, No Hemoptysis, No Unexpected Weight Loss, No Flank pain, No Melena, No Hematochezia, No Frequency, No Urgency, No Burning, No Hematuria, No Rashes, No Diaphoresis. Appetite is Normal Physical Exam Gen-AAO x 3, NAD, Afebrile Head-NCAT, EOMI, PERRLA, Anicteric Sclera, No Posterior Pharyngeal Erythema Neck-Supple, No JVD, No Thyromegaly, No Masses, No LAD, No Bruits Lungs-Clear to Auscultation Bilaterally, No Rales, No Rhonchi, No Wheezing, No Crepitus Chest-No S4, +S1, +S2, No S3, No Murmurs, No Rubs, No Gallops, No Ectopy Abdomen-Soft, Bowel Sounds Present, Non Tender, Non Distended, No Hepatomegaly, No Splenomegaly, No Palpable Masses, No Rebound, No Rigidity, No Guarding Musculoskeletal-Full Range of Motion Bilaterally, No CVAT Extremities-No Cyanosis, No Clubbing, No Edema Nuero-Cranial Nerves II-XII grossly intact, Motor WNL, DTRs WNL, Strength WNL, on the left, Can't lift RLE Psych-Odd affect Admission and Anticipated Discharge Date Admission Date: July 22, 2020 Results & Data Results & Data ([facility]) Vital Signs (Past 12 Hours) Vital Signs Temp Pulse Pulse Resp BP BP Pulse Ox 07/24/20 12:00 36.3 C L 90 16 174/90 H 98 07/24/20 08:00 87 07/24/20 07:05 36.4 C L 90 16 162/84 H 98 07/24/20 05:04 36.8 C 85 20 173/84 H 98
[2020-07-24] MEDS: cefTRIAXone SODIUM 1,000 MG in DEXTROSE 5% 50 ML IV SCH (20:28)
[2020-07-24] MEDS: hydrALAZINE HCL 25 MG TAB PO SCH (20:34)
[2020-07-25 06:11] LABS: Basophils # (auto) 0.03 K/uL (0-0.2); Basophils % (auto) 0.4 %; Eosinophils # (auto) 0.14 K/uL (0-0.5); Eosinophils % (auto) 1.8 %; Hematocrit (blood only) 31.4 % (42-52); Hemoglobin 10.5 g/dL (14.0-18.0); Immature Granulocytes # (auto) 0.01 K/uL (0.00-0.02); Immature Granulocytes % (auto) 0.1 %; Lymphocytes # (auto) 1.37 K/uL (1.2-3.4); Lymphocytes % (auto) 17.5 %; Mean Corpuscular Hemoglobin 29.7 pg (25-34); Mean Corpuscular Hgb Conc 33.4 g/dL (32-36); Mean Platelet Volume 10.1 fL (7.4-10.4); Monocytes # (auto) 0.39 K/uL (0.11-0.59); Neutrophils # (auto) 5.89 K/uL (1.4-6.5); Neutrophils % (auto) 75.2 %; Platelet Count 379 K/uL (130-400); RDW Coefficient of Variation 15.5 % (11.5-14.5); Red Blood Count 3.53 M/uL (4.7-6.1); White Blood Count 7.83 K/uL (4.8-10.8)
[2020-07-25] MEDS: HEPARIN SOD 5,000 UNIT/0.5 ML VIAL SQ SCH ×3 (06:25→20:40)
[2020-07-25 06:55] LABS: Albumin Globulin Ratio 0.5 (0.9-2); Albumin Level 1.8 gm/dl (3.4-5.0); BUN Creatinine Ratio 7.1 (10-20); Bilirubin,Total 0.3 mg/dl (0.2-1); Calcium 8.2 mg/dl (8.5-10.1); Creatinine Clr Calc Pharmacy 19.7 ml/min; Est GFR (African American) 15.9; Est GFR (Non-African American) 13.7; Globulin 3.3 gm/dl (2.5-4.0); Potassium 3.3 mmol/L (3.5-5.1); Total Protein 5.1 gm/dl (6.4-8.2)
[2020-07-25] MEDS: carvediloL 25 MG TAB PO SCH ×2 (07:48→20:41)
[2020-07-25] MEDS: buPROPion XL 300 MG TABCR PO SCH (07:48)
[2020-07-25] MEDS: hydrALAZINE HCL 25 MG TAB PO SCH ×2 (07:48→20:41)
[2020-07-25] MEDS: ASPIRIN 81 MG ECTAB PO SCH (07:49)
[2020-07-25] MEDS: INSULIN GLARGINE SOLOSTAR 100 UNITS/ML 3 ML PEN SC SCH (07:49)
[2020-07-25] MEDS: ATORVASTATIN 40 MG TAB PO SCH (07:49)
[2020-07-25] MEDS: INSULIN ASPART 100 UNITS/ML 3 ML PEN SC SCH ×4 (07:50→21:01)
--- NOTE | 2020-07-25 10:09 | Nephrology Progress Note ---
Date of Service July 25, 2020 Assessment & Plan (1) Acute on chronic renal failure: rapidly progressive CKD from longstanding poorly controlled diabetes and HTN > had been advanced stage 4 as of last month with eGFR 15-20 mL /min >> now currently w/ creatinine hovering at about 4 which may be MARCOS on CKD or may be his new baseline given his rapid progression, in which case he would be crossing over to stage 5 -no emergent need for dialysis but cannot rule out need this admission; he will in any event almost certainly be on dialysis in the coming months given his clinical progression and nonadherence to medical recommendations -daily bmp -continue nephrotoxin avoidance unless life/limb saving -focus on bp control -started 20 mEq daily K >>>after d/w pt about worsening renal function and ongoing lability in sbp, may need to consider dialysis though I have concerns this will worsen sx of dizziness and bp lability. my concern is that he will not follow up as requested after hospital d/c and end up with readmission and urgent HD start. >>>will observe labs tomorrow and if they cont to worsen will consult vascular for TDC - may not be until early next week (2) Hypertensive urgency: goal sbp today is 160-180s > he briefly normalized and now is elevated again despite normal OP meds; had another low point today -hold CCB and /or hydralazine for sbp < 150 -cont coreg current dose -cont to hold lasix -cont CCB 10 mg daily and hydralazine to 75 mg bid (3) Nephrotic syndrome: drives worsening renal function and repeated HTN urgency; from diabetic nephropathy and HTN sclerosis (4) Visual disturbances: chronic but per report acutely worsened recently. no structural findings on imaging from admission -f/u neuro recs > OP neurooptho eval, eyepatch, PT evals, OP EMG -per primary service Admission and Anticipated Discharge Date Admission Date: July 22, 2020 Subjective seen on rounds; walked w/ PT today he told me though no note on chart; dizziness, vision issues unchanged; no N, no sob, no edema Review of Systems Review of Systems: All systems reviewed & are unremarkable except as noted in Subjective Physical Exam Constitutional: well developed and well nourished; no acute distress up in chair on ra Eyes: + EOM not intact (R eye does not ABduct) ENMT: Ears: no external ear abnormality Nose: no external nose abnormality Mouth: + dry oral mucous membranes Neck: no nuchal rigidity Respiratory: normal respiratory effort Auscultation: lungs clear to auscultation bilaterally and + diminished lung sounds Cardiovascular: RRR, no murmur, no edema Gastrointestinal (Abdomen): Inspection/Auscultation: normal bowel sounds Percussion/Palpation: abdomen soft; abdomen nontender Musculoskeletal: Extremities: strength 5/5 throughout Skin: no rashes, warm and dry Neurologic: summers, fluent speech, no tremor Psychiatric: Orientation: alert and oriented x 3 Speech: normal rate/rhythm/volume of speech Affect: + blunted affect Results & Data ([facility]) Vital Signs (Past 12 Hours) Vital Signs Temp Pulse Pulse Resp BP BP Pulse Ox 07/25/20 07:14 36.7 C 87 18 161/87 H 97 07/25/20 03:56 36.7 C 83 16 163/86 H 97 07/25/20 00:49 73 07/25/20 00:05 36.6 C 77 18 127/69 98 07/24/20 22:36 71 Laboratory Results 07/25/20 05:49 07/25/20 05:49 (1) Acute on chronic renal failure Acute renal failure type: unspecified Chronic kidney disease stage: stage 4 (severe) Qualified Code(s): N17.9 - Acute kidney failure, unspecified; N18.4 - Chronic kidney disease, stage 4 (severe)
[2020-07-25] MEDS: POTASSIUM CHLORIDE CRTAB 20 MEQ TABCR PO SCH (11:31)
[2020-07-25] MEDS: amLODIPine BESYLATE 5 MG TAB PO SCH (13:07)
--- NOTE | 2020-07-25 13:19 | Hospitalist Progress Note ---
Date of Service July 25, 2020 Assessment & Plan (1) Hypertensive urgency: Hypertensive urgency CT Head:No acute intracranial findings ?Compliance to medications Continue amlodipine, Coreg, hydralazine Bp controlled Lasix on hold due to MARCOS Stroke like symptoms Right leg weakness-he told me this was not new, Dizziness Blurred/Double Vision: ? 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 Small bilateral mastoid effusions. Carotid Doppler:No hemodynamically significant stenosis seen within the carotid arteries. MRA Brain:No significant stenosis, occlusion, or aneurysm within the [place] of [place]. Continue aspirin, statin Neurology on case C/S Ophthalmology PT/OT May need EMG as outpatient Lyme titer MARCOS on CKD IV Nephrolytic Syndrome Hold diuretics Avoid nephrotoxic agents as able Monitor renal function Appreciate nephrology input No urgent need for dialysis Hypokalemia Normal magnesium levels Replete tablets as needed DM II Last HbA1C:7.2 on Jun 07 Continue insulin therapy Monitor BGs Anemia of chronic disease No acute bleeding issues Monitor Hyperlipidemia Continue statin Mood disorder Continue home medication Abnormal UA R/O UTI Urine culture pending Consider antibiotics if needed DVT Px: Heparin SQ Code Status Full Code Disposition Home on DC Labs checked Feeling better than yesterday ROS-No Headache, No Visual Changes, No Nausea, No Vomiting, No Fever, No Chills, No Neck Pain or Stiffness, No Chest Pain, No Palpitations, No SOB, No CHANEY, No Cough, No Sputum, No Wheezing, No Abdominal Pain, No Diarrhea, No Hematemesis, No Hemoptysis, No Unexpected Weight Loss, No Flank pain, No Melena, No Hematochezia, No Frequency, No Urgency, No Burning, No Hematuria, No Rashes, No Diaphoresis. Appetite is Normal Physical Exam Gen-AAO x 3, NAD, Afebrile Head-NCAT, EOMI, PERRLA, Anicteric Sclera, No Posterior Pharyngeal Erythema Neck-Supple, No JVD, No Thyromegaly, No Masses, No LAD, No Bruits Lungs-Clear to Auscultation Bilaterally, No Rales, No Rhonchi, No Wheezing, No Crepitus Chest-No S4, +S1, +S2, No S3, No Murmurs, No Rubs, No Gallops, No Ectopy Abdomen-Soft, Bowel Sounds Present, Non Tender, Non Distended, No Hepatomegaly, No Splenomegaly, No Palpable Masses, No Rebound, No Rigidity, No Guarding Musculoskeletal-Full Range of Motion Bilaterally, No CVAT Extremities-No Cyanosis, No Clubbing, No Edema Nuero-Cranial Nerves II-XII grossly intact, Motor WNL, DTRs WNL, Strength WNL, on the left, Can't lift RLE Psych-Odd affect Admission and Anticipated Discharge Date Admission Date: July 22, 2020 Results & Data Results & Data ([facility]) Vital Signs (Past 12 Hours) Vital Signs Temp Pulse Pulse Resp BP BP Pulse Ox 07/25/20 10:57 36.9 C 84 18 113/58 L 97 07/25/20 08:00 85 07/25/20 07:14 36.7 C 87 18 161/87 H 97 07/25/20 03:56 36.7 C 83 16 163/86 H 97
[2020-07-25 15:01] LABS: Lyme Ab IgG w/WB Rflx Negative (Negative)
[2020-07-25 15:04] LABS: Lyme Ab IgM w/WB Rflx Negative (Negative)
[2020-07-25] MEDS: cefTRIAXone SODIUM 1,000 MG in DEXTROSE 5% 50 ML IV SCH (20:39)
[2020-07-26] MEDS ORDERED: hydrALAZINE HCL 20 MG/ML VIAL IV ONE (03:30)
[2020-07-26] MEDS: HEPARIN SOD 5,000 UNIT/0.5 ML VIAL SQ SCH ×3 (05:09→20:30)
[2020-07-26 07:58] LABS: BUN Creatinine Ratio 7.6 (10-20); Calcium 8.6 mg/dl (8.5-10.1); Creatinine Clr Calc Pharmacy 18.4 ml/min; Est GFR (African American) 14.6; Est GFR (Non-African American) 12.6; Potassium 3.5 mmol/L (3.5-5.1)
[2020-07-26] MEDS: hydrALAZINE HCL 25 MG TAB PO SCH ×2 (08:16→20:26)
[2020-07-26] MEDS: POTASSIUM CHLORIDE CRTAB 20 MEQ TABCR PO SCH (08:16)
[2020-07-26] MEDS: ASPIRIN 81 MG ECTAB PO SCH (08:17)
[2020-07-26] MEDS: buPROPion XL 300 MG TABCR PO SCH (08:17)
[2020-07-26] MEDS: carvediloL 25 MG TAB PO SCH ×2 (08:17→20:27)
[2020-07-26] MEDS: amLODIPine BESYLATE 5 MG TAB PO SCH (08:18)
[2020-07-26] MEDS: ATORVASTATIN 40 MG TAB PO SCH (08:18)
[2020-07-26] MEDS: INSULIN GLARGINE SOLOSTAR 100 UNITS/ML 3 ML PEN SC SCH (08:19)
[2020-07-26] MEDS: INSULIN ASPART 100 UNITS/ML 3 ML PEN SC SCH ×4 (08:19→20:27)
--- NOTE | 2020-07-26 09:24 | Hospitalist Progress Note ---
Date of Service July 26, 2020 Assessment & Plan (1) Hypertensive urgency: Hypertensive urgency CT Head:No acute intracranial findings ?Compliance to medications Continue amlodipine, Coreg, hydralazine Bp controlled Lasix on hold due to MARCOS Stroke like symptoms Right leg weakness-he told me this was not new, Dizziness Blurred/Double Vision: ? 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 Small bilateral mastoid effusions. Carotid Doppler:No hemodynamically significant stenosis seen within the carotid arteries. MRA Brain:No significant stenosis, occlusion, or aneurysm within the [place] of [place]. Continue aspirin, statin Neurology on case C/S Ophthalmology-Dr Emiliano Alcaraz wants him to follow up in his office where he has the equipment to do better analysis, but he feels the 6th nerve palsy is sec to the HTN and DM PT/OT May need EMG as outpatient Lyme negative MARCOS on CKD IV Nephrolytic Syndrome Hold diuretics Avoid nephrotoxic agents as able Monitor renal function Appreciate nephrology input Dialysis today Hypokalemia Normal magnesium levels Replete tablets as needed DM II Last HbA1C:7.2 on Jun 07 Continue insulin therapy Monitor BGs Anemia of chronic disease No acute bleeding issues Monitor Hyperlipidemia Continue statin Mood disorder Continue home medication Abnormal UA R/O UTI Urine culture pending Consider antibiotics if needed DVT Px: Heparin SQ Code Status Full Code Disposition Home on DC Labs checked Feeling better than yesterday ROS-No Headache, No Visual Changes, No Nausea, No Vomiting, No Fever, No Chills, No Neck Pain or Stiffness, No Chest Pain, No Palpitations, No SOB, No CHANEY, No Cough, No Sputum, No Wheezing, No Abdominal Pain, No Diarrhea, No Hematemesis, No Hemoptysis, No Unexpected Weight Loss, No Flank pain, No Melena, No Hematochezia, No Frequency, No Urgency, No Burning, No Hematuria, No Rashes, No Diaphoresis. Appetite is Normal Physical Exam Gen-AAO x 3, NAD, Afebrile Head-NCAT, EOMI, PERRLA, Anicteric Sclera, No Posterior Pharyngeal Erythema Neck-Supple, No JVD, No Thyromegaly, No Masses, No LAD, No Bruits Lungs-Clear to Auscultation Bilaterally, No Rales, No Rhonchi, No Wheezing, No Crepitus Chest-No S4, +S1, +S2, No S3, No Murmurs, No Rubs, No Gallops, No Ectopy Abdomen-Soft, Bowel Sounds Present, Non Tender, Non Distended, No Hepatomegaly, No Splenomegaly, No Palpable Masses, No Rebound, No Rigidity, No Guarding Musculoskeletal-Full Range of Motion Bilaterally, No CVAT Extremities-No Cyanosis, No Clubbing, No Edema Nuero-Cranial Nerves II-XII grossly intact, Motor WNL, DTRs WNL, Strength WNL, on the left, Can lift RLE now Psych-Odd affect Admission and Anticipated Discharge Date Admission Date: July 22, 2020 Results & Data Results & Data ([facility]) Vital Signs (Past 12 Hours) Vital Signs Temp Pulse Pulse Resp BP BP Pulse Ox 07/26/20 08:08 36.7 C 83 18 162/82 H 98 07/26/20 07:56 90 07/26/20 03:17 36.6 C 79 19 189/96 H 99 07/26/20 00:41 83 07/25/20 23:22 36.9 C 84 20 163/86 H 98
--- NOTE | 2020-07-26 10:41 | Nephrology Progress Note ---
Date of Service July 26, 2020 Assessment & Plan (1) Acute on chronic renal failure: rapidly progressive CKD from longstanding poorly controlled diabetes and HTN > had been advanced stage 4 as of last month with eGFR 15-20 mL /min >> has continued to worsen since admission despite conservative measures now currently w/ creatinine hovering at about 5 which may be MARCOS on CKD but more likely given his rapid progression stage 5 -no emergent need for dialysis but likely to start this admission; he will in any event almost certainly be on dialysis in the coming months given his clinical progression and nonadherence to medical recommendations: vascular on board and will do catheter on 07/29 -daily bmp -continue nephrotoxin avoidance unless life/limb saving -focus on bp control -cont 20 mEq daily K >>>after d/w pt about worsening renal function and ongoing lability in sbp inclined to start dialysis though I have concerns this will worsen sx of dizziness and bp lability. my concern is that he will not follow up as requested after hospital d/c and end up with readmission and urgent HD start. >>pls start process of arranging OP dialysis at [facility] first day 07/31 tentatively (2) Hypertensive urgency: goal sbp today is 140-160s > he briefly normalized and now is elevated again despite normal OP meds; had another low point today -hold CCB and /or hydralazine for sbp < 150 -cont coreg current dose -cont to hold lasix -cont CCB 10 mg daily and hydralazine 75 mg bid (3) Nephrotic syndrome: drives worsening renal function and repeated HTN urgency; from diabetic nephropathy and HTN sclerosis (4) Visual disturbances: chronic but per report acutely worsened recently. no structural findings on imaging from admission -f/u neuro recs > OP neurooptho eval, eyepatch, PT evals, OP EMG -per primary service Admission and Anticipated Discharge Date Admission Date: July 22, 2020 Subjective pt still dizzy and c/o generalized weakness. also w/ transient N today and challenges finding food he'll tolerate. no sob Renal labs continue to worsen and blood pressure remains uncontrolled. Consulted vascular surgery who will place tunneled dialysis catheter on July 29 Review of Systems Review of Systems: All systems reviewed & are unremarkable except as noted in Subjective Physical Exam Constitutional: well developed and well nourished; no acute distress Eyes: + EOM not intact (R eye does not ABduct) ENMT: Ears: no external ear abnormality Nose: no external nose abnormality Mouth: + dry oral mucous membranes Neck: no nuchal rigidity Respiratory: normal respiratory effort Auscultation: lungs clear to auscultation bilaterally and + diminished lung sounds Cardiovascular: RRR, no murmur, no edema Gastrointestinal (Abdomen): Inspection/Auscultation: normal bowel sounds Percussion/Palpation: abdomen soft; abdomen nontender Musculoskeletal: Extremities: strength 5/5 throughout Skin: no rashes, warm and dry Neurologic: summers, fluent speech, no tremor Psychiatric: Orientation: alert and oriented x 3 Speech: normal rate/rhythm/volume of speech Affect: + blunted affect Results & Data ([facility]) Vital Signs (Past 12 Hours) Vital Signs Temp Pulse Pulse Resp BP BP Pulse Ox 07/26/20 08:08 36.7 C 83 18 162/82 H 98 07/26/20 07:56 90 07/26/20 03:17 36.6 C 79 19 189/96 H 99 07/26/20 00:41 83 07/25/20 23:22 36.9 C 84 20 163/86 H 98 Laboratory Results 07/25/20 05:49 07/26/20 06:54 (1) Acute on chronic renal failure Acute renal failure type: unspecified Chronic kidney disease stage: stage 4 (severe) Qualified Code(s): N17.9 - Acute kidney failure, unspecified; N18.4 - Chronic kidney disease, stage 4 (severe)
[2020-07-26] MEDS: cefTRIAXone SODIUM 1,000 MG in DEXTROSE 5% 50 ML IV SCH (20:23)
[2020-07-27] MEDS: HEPARIN SOD 5,000 UNIT/0.5 ML VIAL SQ SCH ×3 (05:38→21:19)
[2020-07-27 08:12] LABS: Hematocrit (blood only) 31.4 % (42-52); Hemoglobin 10.5 g/dL (14.0-18.0); Mean Corpuscular Hemoglobin 30.2 pg (25-34); Mean Corpuscular Hgb Conc 33.4 g/dL (32-36); Mean Corpuscular Volume 90.2 fL (80-100); Platelet Count 395 K/uL (130-400); RDW Coefficient of Variation 15.8 % (11.5-14.5); RDW Standard Deviation 51.7 fL (36.4-46.3); Red Blood Count 3.48 M/uL (4.7-6.1); White Blood Count 7.19 K/uL (4.8-10.8)
[2020-07-27] MEDS: ASPIRIN 81 MG ECTAB PO SCH (08:13)
[2020-07-27] MEDS: buPROPion XL 300 MG TABCR PO SCH (08:13)
[2020-07-27] MEDS: amLODIPine BESYLATE 5 MG TAB PO SCH ×2 (08:13→21:07)
[2020-07-27] MEDS: POTASSIUM CHLORIDE CRTAB 20 MEQ TABCR PO SCH (08:13)
[2020-07-27] MEDS: ATORVASTATIN 40 MG TAB PO SCH (08:13)
[2020-07-27] MEDS: INSULIN GLARGINE SOLOSTAR 100 UNITS/ML 3 ML PEN SC SCH (08:13)
[2020-07-27] MEDS: INSULIN ASPART 100 UNITS/ML 3 ML PEN SC SCH ×4 (08:14→21:19)
[2020-07-27] MEDS: hydrALAZINE HCL 25 MG TAB PO SCH ×2 (08:15→21:07)
[2020-07-27] MEDS: carvediloL 25 MG TAB PO SCH ×2 (08:16→21:19)
[2020-07-27 08:55] LABS: Albumin Level 1.8 gm/dl (3.4-5.0); Calcium 8.5 mg/dl (8.5-10.1); Creatinine Clr Calc Pharmacy 17.9 ml/min; Est GFR (African American) 14.5; Est GFR (Non-African American) 12.5; Phosphorus 4.5 mg/dl (2.5-4.9); Potassium 3.6 mmol/L (3.5-5.1)
--- NOTE | 2020-07-27 09:21 | Hospitalist Progress Note ---
Date of Service July 27, 2020 Assessment & Plan (1) Hypertensive urgency: Hypertensive urgency CT Head:No acute intracranial findings ?Compliance to medications Continue amlodipine, Coreg, hydralazine Bp controlled Stroke like symptoms Right leg weakness-he told me this was not new, Dizziness Blurred/Double Vision: ? 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 Small bilateral mastoid effusions. Carotid Doppler:No hemodynamically significant stenosis seen within the carotid arteries. MRA Brain:No significant stenosis, occlusion, or aneurysm within the [place]. Continue aspirin, statin Neurology on case C/S Ophthalmology-Dr Emiliano Alcaraz wants him to follow up in his office where he has the equipment to do better analysis, but he feels the 6th nerve palsy is sec to the HTN and DM PT/OT May need EMG as outpatient Lyme negative MARCOS on CKD IV Nephrolytic Syndrome Hold diuretics Avoid nephrotoxic agents as able Monitor renal function Appreciate nephrology input Dialysis Catheter Wednesday Hypokalemia Normal magnesium levels Replete tablets as needed DM II Last HbA1C:7.2 on Jun 07 Continue insulin therapy Monitor BGs Anemia of chronic disease No acute bleeding issues Monitor Hyperlipidemia Continue statin Mood disorder Continue home medication Abnormal UA R/O UTI Urine culture pending Consider antibiotics if needed DVT Px: Heparin SQ Code Status Full Code Disposition Home on DC Labs checked Feeling better than yesterday ROS-No Headache, No Visual Changes, No Nausea, No Vomiting, No Fever, No Chills, No Neck Pain or Stiffness, No Chest Pain, No Palpitations, No SOB, No CHANEY, No Cough, No Sputum, No Wheezing, No Abdominal Pain, No Diarrhea, No Hematemesis, No Hemoptysis, No Unexpected Weight Loss, No Flank pain, No Melena, No Hematochezia, No Frequency, No Urgency, No Burning, No Hematuria, No Rashes, No Diaphoresis. Appetite is Normal Physical Exam Gen-AAO x 3, NAD, Afebrile Head-NCAT, EOMI, PERRLA, Anicteric Sclera, No Posterior Pharyngeal Erythema Neck-Supple, No JVD, No Thyromegaly, No Masses, No LAD, No Bruits Lungs-Clear to Auscultation Bilaterally, No Rales, No Rhonchi, No Wheezing, No Crepitus Chest-No S4, +S1, +S2, No S3, No Murmurs, No Rubs, No Gallops, No Ectopy Abdomen-Soft, Bowel Sounds Present, Non Tender, Non Distended, No Hepatomegaly, No Splenomegaly, No Palpable Masses, No Rebound, No Rigidity, No Guarding Musculoskeletal-Full Range of Motion Bilaterally, No CVAT Extremities-No Cyanosis, No Clubbing, No Edema Nuero-Cranial Nerves II-XII grossly intact, Motor WNL, DTRs WNL, Strength WNL, on the left, Can lift RLE now Psych-Odd affect Admission and Anticipated Discharge Date Admission Date: July 22, 2020 Results & Data Results & Data ([facility]) Vital Signs (Past 12 Hours) Vital Signs Temp Pulse Pulse Resp BP Pulse Ox 07/27/20 07:13 37 C 90 18 165/73 H 98 07/27/20 04:00 36.9 C 87 20 161/70 H 98 07/27/20 00:26 80 07/26/20 23:43 36.8 C 78 20 117/65 98
--- NOTE | 2020-07-27 10:32 | Nephrology Progress Note ---
Date of Service July 27, 2020 Assessment & Plan (1) Acute on chronic renal failure: rapidly progressive CKD from longstanding poorly controlled diabetes and HTN > had been advanced stage 4 as of last month with eGFR 15-20 mL /min >> has continued to worsen since admission despite conservative measures now currently w/ creatinine hovering at about 5 which may be MARCOS on CKD but more likely given his rapid progression stage 5 -no emergent need for dialysis but likely to start this admission; he will in any event almost certainly be on dialysis in the coming months given his clinical progression and nonadherence to medical recommendations: vascular on board and will do catheter on 07/29 -daily bmp -continue nephrotoxin avoidance unless life/limb saving -focus on bp control -cont 20 mEq daily K >>pls start process of arranging OP dialysis at [facility] first day 07/31 tentatively (2) Hypertensive urgency: goal sbp today is 140-160s > he briefly normalized and now is elevated again despite normal OP meds; BP is acceptable today. -cont coreg current dose -cont to hold lasix -cont CCB 10 mg daily and hydralazine 75 mg bid (3) Nephrotic syndrome: drives worsening renal function and repeated HTN urgency; from diabetic nephropathy and HTN sclerosis (4) Visual disturbances: chronic but per report acutely worsened recently. no structural findings on imaging from admission -f/u neuro recs > OP neurooptho eval, eyepatch, PT evals, OP EMG -per primary service Admission and Anticipated Discharge Date Admission Date: July 22, 2020 Subjective Seen for CKD and hypertension. He feels better today. No shortness of breath. Eating and drinking well. No nausea or vomiting Review of Systems Review of Systems: All systems reviewed & are unremarkable except as noted in HPI & below Physical Exam Physical Exam: General exam: Appears comfortable, no acute distress HEENT: Pupils are equal and reactive to light Neck: No JVD, neck is supple trachea is midline Respiratory system: Clear breath sounds bilaterally. Gastrointestinal: Abdomen is soft, non distended, non tender, bowel sounds are present CVS: Regular rate and rhythm. No murmurs, rubs or gallops Musculoskeletal: No joint or muscle tenderness Extremities: Non tender, no edema, peripheral pulses are present Neuro: Oriented, no tremors, no focal neurological deficits Skin: No rashes Results & Data ([facility]) Vital Signs (Past 12 Hours) Vital Signs Temp Pulse Pulse Resp BP Pulse Ox 07/27/20 08:00 81 07/27/20 07:13 37 C 90 18 165/73 H 98 07/27/20 04:00 36.9 C 87 20 161/70 H 98 07/27/20 00:26 80 07/26/20 23:43 36.8 C 78 20 117/65 98 Laboratory Results 07/27/20 07:46 07/27/20 07/27/20 07:46 07:46 WBC 7.19 RBC 3.48 L MCV 90.2 MCH 30.2 MCHC 33.4 RDW Std Deviation 51.7 H RDW Coeff of Luz 15.8 H Plt Count 395 MPV 10.0 Phosphorus 4.5 Albumin 1.8 L (1) Acute on chronic renal failure Acute renal failure type: unspecified Chronic kidney disease stage: stage 4 (severe) Qualified Code(s): N17.9 - Acute kidney failure, unspecified; N18.4 - Chronic kidney disease, stage 4 (severe)
[2020-07-27] MEDS: cefTRIAXone SODIUM 1,000 MG in DEXTROSE 5% 50 ML IV SCH (21:05)
[2020-07-28] MEDS: HEPARIN SOD 5,000 UNIT/0.5 ML VIAL SQ SCH ×3 (05:25→20:37)
[2020-07-28] MEDS: POTASSIUM CHLORIDE CRTAB 20 MEQ TABCR PO SCH (08:01)
[2020-07-28] MEDS: carvediloL 25 MG TAB PO SCH ×2 (08:01→20:18)
[2020-07-28] MEDS: buPROPion XL 300 MG TABCR PO SCH (08:01)
[2020-07-28] MEDS: hydrALAZINE HCL 25 MG TAB PO SCH ×2 (08:01→20:19)
[2020-07-28] MEDS: ASPIRIN 81 MG ECTAB PO SCH (08:01)
[2020-07-28] MEDS: ATORVASTATIN 40 MG TAB PO SCH (08:01)
[2020-07-28] MEDS: INSULIN GLARGINE SOLOSTAR 100 UNITS/ML 3 ML PEN SC SCH (08:02)
[2020-07-28] MEDS: INSULIN ASPART 100 UNITS/ML 3 ML PEN SC SCH ×4 (08:02→20:37)
[2020-07-28 08:16] LABS: Hematocrit (blood only) 30.2 % (42-52); Hemoglobin 10.1 g/dL (14.0-18.0); Mean Corpuscular Hemoglobin 30.3 pg (25-34); Mean Corpuscular Hgb Conc 33.4 g/dL (32-36); Mean Corpuscular Volume 90.7 fL (80-100); Mean Platelet Volume 10.2 fL (7.4-10.4); Platelet Count 425 K/uL (130-400); RDW Coefficient of Variation 15.8 % (11.5-14.5); Red Blood Count 3.33 M/uL (4.7-6.1); White Blood Count 8.83 K/uL (4.8-10.8)
[2020-07-28 09:04] LABS: Albumin Globulin Ratio 0.6 (0.9-2); Albumin Level 1.9 gm/dl (3.4-5.0); BUN Creatinine Ratio 8.1 (10-20); Bilirubin,Total 0.1 mg/dl (0.2-1); Calcium 8.2 mg/dl (8.5-10.1); Creatinine Clr Calc Pharmacy 18.7 ml/min; Globulin 3.3 gm/dl (2.5-4.0); Potassium 3.9 mmol/L (3.5-5.1); Total Protein 5.2 gm/dl (6.4-8.2)
--- NOTE | 2020-07-28 09:26 | Hospitalist Progress Note ---
Date of Service July 28, 2020 Assessment & Plan (1) Hypertensive urgency: Hypertensive urgency CT Head:No acute intracranial findings ?Compliance to medications Continue amlodipine, Coreg, hydralazine Bp controlled Stroke like symptoms Right leg weakness-he told me this was not new, Dizziness Blurred/Double Vision: ? 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 Small bilateral mastoid effusions. Carotid Doppler:No hemodynamically significant stenosis seen within the carotid arteries. MRA Brain:No significant stenosis, occlusion, or aneurysm within the [place]. Continue aspirin, statin Neurology on case C/S Ophthalmology-Dr Emiliano Alcaraz wants him to follow up in his office where he has the equipment to do better analysis, but he feels the 6th nerve palsy is sec to the HTN and DM PT/OT May need EMG as outpatient Lyme negative MARCOS on CKD IV Nephrolytic Syndrome Hold diuretics Avoid nephrotoxic agents as able Monitor renal function Appreciate nephrology input Dialysis Catheter Wednesday Hypokalemia Normal magnesium levels Replete tablets as needed DM II Last HbA1C:7.2 on Jun 07 Continue insulin therapy Monitor BGs Anemia of chronic disease No acute bleeding issues Monitor Hyperlipidemia Continue statin Mood disorder Continue home medication Abnormal UA R/O UTI Urine culture pending Consider antibiotics if needed DVT Px: Heparin SQ Code Status Full Code Disposition Home on DC Labs checked Feeling better than yesterday ROS-No Headache, No Visual Changes, No Nausea, No Vomiting, No Fever, No Chills, No Neck Pain or Stiffness, No Chest Pain, No Palpitations, No SOB, No CHANEY, No Cough, No Sputum, No Wheezing, No Abdominal Pain, No Diarrhea, No Hematemesis, No Hemoptysis, No Unexpected Weight Loss, No Flank pain, No Melena, No Hematochezia, No Frequency, No Urgency, No Burning, No Hematuria, No Rashes, No Diaphoresis. Appetite is Normal Physical Exam Gen-AAO x 3, NAD, Afebrile Head-NCAT, EOMI, PERRLA, Anicteric Sclera, No Posterior Pharyngeal Erythema Neck-Supple, No JVD, No Thyromegaly, No Masses, No LAD, No Bruits Lungs-Clear to Auscultation Bilaterally, No Rales, No Rhonchi, No Wheezing, No Crepitus Chest-No S4, +S1, +S2, No S3, No Murmurs, No Rubs, No Gallops, No Ectopy Abdomen-Soft, Bowel Sounds Present, Non Tender, Non Distended, No Hepatomegaly, No Splenomegaly, No Palpable Masses, No Rebound, No Rigidity, No Guarding Musculoskeletal-Full Range of Motion Bilaterally, No CVAT Extremities-No Cyanosis, No Clubbing, No Edema Nuero-Cranial Nerves II-XII grossly intact, Motor WNL, DTRs WNL, Strength WNL, on the left, Can lift RLE now Psych-Odd affect Admission and Anticipated Discharge Date Admission Date: July 22, 2020 Results & Data Results & Data ([facility]) Vital Signs (Past 12 Hours) Vital Signs Temp Pulse Pulse Resp BP BP Pulse Ox 07/28/20 08:00 89 07/28/20 07:11 37.0 C 88 20 132/72 97 07/28/20 03:44 37.2 C 89 18 145/76 H 96 07/28/20 00:54 86 07/27/20 22:56 36.9 C 89 16 163/81 H 98
--- NOTE | 2020-07-28 10:42 | Nephrology Progress Note ---
Date of Service July 28, 2020 Assessment & Plan (1) Acute on chronic renal failure: rapidly progressive CKD from longstanding poorly controlled diabetes and HTN > had been advanced stage 4 as of last month with eGFR 15-20 mL /min >> has continued to worsen since admission despite conservative measures. He has an acute component to his presentation. Creatinine today of 4.8. Other chem istries are stable. He has metabolic acidosis. Patient will need to be assessed in the morning by nephrology before dialysis catheter placement. I do think if his labs better tomorrow, we may hold off dialysis initiation and discharge the patient to continue dialysis planning outpatient -daily bmp -continue nephrotoxin avoidance unless life/limb saving (2) Hypertensive urgency: goal sbp today is 140-160s > he briefly normalized and now is elevated a gain despite normal OP meds; BP is controlled today. -cont coreg current dose -cont to hold lasix -cont CCB 10 mg daily and hydralazine 75 mg bid (3) Nephrotic syndrome: drives worsening renal function and repeated HTN urgency; from diabetic nephropathy and HTN sclerosis (4) Visual disturbances: chronic but per report acutely worsened recently. no structural findings on imaging from admission -f/u neuro recs > OP neurooptho eval, eyepatch, PT evals, OP EMG -per primary service Admission and Anticipated Discharge Date Admission Date: July 22, 2020 Subjective Patient feels better today. No shortness of breath. No vomiting or diarrhea. Renal function stable Review of Systems Review of Systems: All systems reviewed & are unremarkable except as noted in HPI & below Physical Exam Physical Exam: General exam: Appears comfortable, no acute distress HEENT: Pupils are equal and reactive to light Neck: No JVD, neck is supple trachea is midline Respiratory system: Clear breath sounds bilaterally. Gastrointestinal: Abdomen is soft, non distended, non tender, bowel sounds are present CVS: Regular rate and rhythm. No murmurs, rubs or gallops Musculoskeletal: No joint or muscle tenderness Extremities: Non tender, no edema, peripheral pulses are present Neuro: Oriented, no tremors, no focal neurological deficits Skin: No rashes Results & Data ([facility]) Vital Signs (Past 12 Hours) Vital Signs Temp Pulse Pulse Resp BP BP Pulse Ox 07/28/20 08:00 89 07/28/20 07:11 37.0 C 88 20 132/72 97 07/28/20 03:44 37.2 C 89 18 145/76 H 96 07/28/20 00:54 86 07/27/20 22:56 36.9 C 89 16 163/81 H 98 Laboratory Results 07/28/20 07:40 07/28/20 07/28/20 07:40 07:40 WBC 8.83 RBC 3.33 L MCV 90.7 MCH 30.3 MCHC 33.4 RDW Std Deviation 53.0 H RDW Coeff of Luz 15.8 H Plt Count 425 H MPV 10.2 Albumin 1.9 L (1) Acute on chronic renal failure Acute renal failure type: unspecified Chronic kidney disease stage: stage 4 (severe) Qualified Code(s): N17.9 - Acute kidney failure, unspecified; N18.4 - Chronic kidney disease, stage 4 (severe)
[2020-07-29] MEDS: HEPARIN SOD 5,000 UNIT/0.5 ML VIAL SQ SCH ×4 (06:08→20:09)
[2020-07-29 07:12] LABS: Hematocrit (blood only) 29.1 % (42-52); Hemoglobin 9.7 g/dL (14.0-18.0); Mean Corpuscular Hemoglobin 30.3 pg (25-34); Mean Corpuscular Hgb Conc 33.3 g/dL (32-36); Mean Corpuscular Volume 90.9 fL (80-100); Mean Platelet Volume 10.4 fL (7.4-10.4); Platelet Count 411 K/uL (130-400); RDW Coefficient of Variation 15.3 % (11.5-14.5); RDW Standard Deviation 50.6 fL (36.4-46.3); White Blood Count 8.68 K/uL (4.8-10.8)
[2020-07-29 07:24] LABS: INR 1.1 (0.9-1.1); Prothrombin Time 11.7 Seconds (9.0-12.0)
[2020-07-29] MEDS: INSULIN ASPART 100 UNITS/ML 3 ML PEN SC SCH ×4 (07:38→21:38)
[2020-07-29] MEDS ORDERED: MIDAZOLAM HCL 1 MG/ML 2ML VIAL ONE (07:48)
[2020-07-29] MEDS ORDERED: fentaNYL citrate 100 MCG/2 ML VIAL ONE (07:48)
[2020-07-29 08:00] LABS: Albumin Globulin Ratio 0.5 (0.9-2); Albumin Level 1.7 gm/dl (3.4-5.0); BUN Creatinine Ratio 8.8 (10-20); Bilirubin,Total 0.2 mg/dl (0.2-1); Calcium 7.8 mg/dl (8.5-10.1); Creatinine Clr Calc Pharmacy 18.7 ml/min; Est GFR (African American) 14.7; Est GFR (Non-African American) 12.7; Globulin 3.2 gm/dl (2.5-4.0); Potassium 4.2 mmol/L (3.5-5.1); Total Protein 4.9 gm/dl (6.4-8.2)
--- NOTE | 2020-07-29 08:33 | Consultation ---
Date of Consultation July 29, 2020 Assessment & Plan (1) CKD (chronic kidney disease) stage 4, GFR 15-29 ml/min: PermCath insertion was recommended for access for hemodialysis. I have discussed the risks options and benefits of the procedure with the patient. The patient understands the risks options and benefits and agrees to the procedure. Thank you very much for letting us participate in the care of this patient. History of Present Illness Reason for Consultation: Acute renal failure Attending Physician: Jason Sy DO History of Present Illness This is a 50-year-old male who has worsening kidney function is now in need of dialysis. He is an insulin-dependent diabetic. He is in need of an access for his dialysis. PermCath was recommended. Allergies Allergy/AdvReac Type Severity Reaction Status Date / Time No Known Allergies Allergy Verified 07/22/20 16:50 Home Medications Medication Instructions Recorded Confirmed Type amlodipine 5 mg PO DAILY 04/14/20 07/22/20 History aspirin [Aspirin Low Dose] 81 mg PO DAILY 04/14/20 07/22/20 History atorvastatin 80 mg PO DAILY 04/14/20 07/22/20 History bupropion HCl 300 mg PO DAILY 04/14/20 07/22/20 History cholecalciferol (vitamin D3) 50 mcg PO DAILY 04/14/20 07/22/20 History ergocalciferol (vitamin D2) 1,250 mcg PO WK 04/14/20 07/22/20 History fenofibrate nanocrystallized 145 mg PO DAILY 04/14/20 07/22/20 History triamcinolone acetonide 1 applic TOPICAL BID 04/14/20 07/22/20 History acetaminophen 650 mg PO Q4H PRN #50 tab 04/18/20 07/22/20 Rx insulin aspart U-100 [Novolog 5 unit SC AC #15 ml 04/18/20 07/22/20 Rx Flexpen U-100 Insulin] carvedilol 25 mg PO BID #60 tab 04/19/20 07/22/20 Rx furosemide [Lasix] 40 mg PO BID #60 tab 04/19/20 07/22/20 Rx hydralazine 50 mg PO BID #60 tab 04/19/20 07/22/20 Rx famotidine [Pepcid] 20 mg PO BID PRN #60 tab 05/27/20 07/22/20 Rx hydrocodone-acetaminophen [[place]] 1 tab PO Q6H PRN #10 tab 05/27/20 07/22/20 Rx Lantus Solostar U-100 Insulin 25 unit SUBCUT QAM 07/22/20 07/22/20 History Patient History Medical History (Updated 07/23/20 @ 16:58 by Tania Noble PA-C) Anemia Chronic back pain CKD (chronic kidney disease) stage 4, GFR 15-29 ml/min Depression HTN (hypertension) Insulin dependent diabetes mellitus Nephrotic syndrome Proteinuria, unspecified nephrotic range Surgical History No significant past surgical history Family History Father Diabetes Mother Diabetes Social History Smoking Status: Never smoker Tobacco Type: Smokeless Tobacco (Dip or Chew) Second Hand Exposure: No; Do You Dip or Chew Tobacco: Yes; Tobacco Cessation Education Requested by Patient: No Hx Alcohol Use: Yes Hx Substance Use: No Preferred Language: Citizen Of [place] Communication Ability: Effective Emergency Management System Director Required: No Beliefs That Will Affect Care: None Current Living Situation: Other Current Living Situation Comment: "friends" Other Information That Helps Us Care for You: No Feels Safe at Home: Yes Safety Concerns: Feels Safe At This Time Assistive Devices: None Review of Systems Review of Systems: All systems reviewed & are unremarkable except as noted in HPI & below Physical Exam Constitutional: WD/WN, vitals as above Neck: trachea midline Respiratory: normal respiratory effort; no respiratory distress Cardiovascular: Rate/Rhythm: regular rate and regular rhythm Gastrointestinal (Abdomen): Inspection/Auscultation: abdomen normal to inspection Percussion/Palpation: abdomen soft; abdomen nontender Musculoskeletal: Extremities: extremities normal to inspection Psychiatric: Orientation: alert and oriented x 3 Results & Data ([facility]) Vital Signs (Past 12 Hours) Vital Signs Temp Pulse Pulse Resp BP Pulse Ox 07/29/20 08:07 36.6 C 80 18 125/63 97 07/29/20 08:00 85 07/29/20 04:15 37.1 C 84 18 136/72 99 07/28/20 23:52 63 07/28/20 23:45 36.8 C 88 18 172/79 H 97
--- NOTE | 2020-07-29 08:50 | Hospitalist Progress Note ---
Date of Service July 29, 2020 Assessment & Plan (1) Hypertensive urgency: Hypertensive urgency CT Head:No acute intracranial findings ?Compliance to medications Continue amlodipine, Coreg, hydralazine BP controlled Stroke like symptoms Right leg weakness-he told me this was not new, Dizziness Blurred/Double Vision: ? 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 Small bilateral mastoid effusions. Carotid Doppler:No hemodynamically significant stenosis seen within the carotid arteries. MRA Brain:No significant stenosis, occlusion, or aneurysm within the [place]. Continue aspirin, statin Neurology on case C/S Ophthalmology-Dr Emiliano Alcaraz wants him to follow up in his office where he has the equipment to do better analysis, but he feels the 6th nerve palsy is sec to the HTN and DM PT/OT May need EMG as outpatient Lyme negative MARCOS on CKD IV Nephrolytic Syndrome Hold diuretics Avoid nephrotoxic agents as able Monitor renal function Appreciate nephrology input Dialysis Catheter today Hypokalemia Normal magnesium levels Replete tablets as needed DM II Last HbA1C:7.2 on Jun 07 Continue insulin therapy Monitor BGs Anemia of chronic disease No acute bleeding issues Monitor Hyperlipidemia Continue statin Mood disorder Continue home medication Abnormal UA R/O UTI Urine culture pending Consider antibiotics if needed DVT Px: Heparin SQ Code Status Full Code Disposition Home on DC Labs checked Feeling fine ROS-No Headache, No Visual Changes, No Nausea, No Vomiting, No Fever, No Chills, No Neck Pain or Stiffness, No Chest Pain, No Palpitations, No SOB, No CHANEY, No Cough, No Sputum, No Wheezing, No Abdominal Pain, No Diarrhea, No Hematemesis, No Hemoptysis, No Unexpected Weight Loss, No Flank pain, No Melena, No Hematochezia, No Frequency, No Urgency, No Burning, No Hematuria, No Rashes, No Diaphoresis. Appetite is Normal Physical Exam Gen-AAO x 3, NAD, Afebrile Head-NCAT, EOMI, PERRLA, Anicteric Sclera, No Posterior Pharyngeal Erythema Neck-Supple, No JVD, No Thyromegaly, No Masses, No LAD, No Bruits Lungs-Clear to Auscultation Bilaterally, No Rales, No Rhonchi, No Wheezing, No Crepitus Chest-No S4, +S1, +S2, No S3, No Murmurs, No Rubs, No Gallops, No Ectopy Abdomen-Soft, Bowel Sounds Present, Non Tender, Non Distended, No Hepatomegaly, No Splenomegaly, No Palpable Masses, No Rebound, No Rigidity, No Guarding Musculoskeletal-Full Range of Motion Bilaterally, No CVAT Extremities-No Cyanosis, No Clubbing, No Edema Nuero-Cranial Nerves II-XII grossly intact, Motor WNL, DTRs WNL, Strength WNL, on the left, Can lift RLE now Psych-Odd affect Admission and Anticipated Discharge Date Admission Date: July 22, 2020 Results & Data Results & Data ([facility]) Vital Signs (Past 12 Hours) Vital Signs Temp Pulse Pulse Resp BP Pulse Ox 07/29/20 08:07 36.6 C 80 18 125/63 97 07/29/20 08:00 85 07/29/20 04:15 37.1 C 84 18 136/72 99 07/28/20 23:52 63 07/28/20 23:45 36.8 C 88 18 172/79 H 97
[2020-07-29] MEDS ORDERED: LIDOCAINE HCL 1% 20 ML VIAL ONE (09:45)
[2020-07-29] MEDS ORDERED: HEPARIN SOD (PORCINE) 5,000 UNITS/ML VIAL ONE (09:46)
--- NOTE | 2020-07-29 09:56 | Nephrology Progress Note ---
Date of Service July 29, 2020 Assessment & Plan (1) Acute on chronic renal failure: rapidly progressive CKD from longstanding poorly controlled diabetes and HTN > had been advanced stage 4 as of last month with eGFR 15-20 mL /min >> has continued to worsen since admission despite conservative measures. He has an acute component to his presentation. Creatinine plateau'd just under 5. Other chemistries are stable. He has metabolic acidosis. pt getting TDC today; appreciate case mgt efforts to arrange OP dialysis -first treatment for dialysis planned for today short treatment no fluid removal -daily bmp -continue nephrotoxin avoidance unless life/limb saving (2) Hypertensive urgency: goal sbp today is 130-150s > he briefly normalized and now is elevated again despite normal OP meds -cont coreg current dose -cont to hold lasix -cont CCB 10 mg daily and hydralazine 75 mg bid (3) Nephrotic syndrome: drives worsening renal function and repeated HTN urgency; from diabetic nephropathy and HTN sclerosis (4) Visual disturbances: chronic but per report acutely worsened recently. no structural findings on imaging from admission -f/u neuro recs > OP neurooptho eval, eyepatch, PT evals, OP EMG -per primary service Admission and Anticipated Discharge Date Admission Date: July 22, 2020 Subjective seen on rounds thsi am just before he headed to OR for TDC; denies sob, N/V; acknowledges minimal ambulation Review of Systems Review of Systems: All systems reviewed & are unremarkable except as noted in Subjective Physical Exam Constitutional: well developed and well nourished; no acute distress Eyes: + EOM not intact (R eye does not ABduct) ENMT: Ears: no external ear abnormality Nose: no external nose abnormality Mouth: + dry oral mucous membranes Neck: no nuchal rigidity Respiratory: normal respiratory effort Auscultation: lungs clear to auscultation bilaterally and + diminished lung sounds Cardiovascular: RRR, no murmur, no edema Gastrointestinal (Abdomen): Inspection/Auscultation: normal bowel sounds Percussion/Palpation: abdomen soft; abdomen nontender Musculoskeletal: Extremities: strength 5/5 throughout Skin: no rashes, warm and dry Psychiatric: Orientation: alert and oriented x 3 Speech: normal rate/rhythm/volume of speech Affect: + blunted affect Results & Data ([facility]) Vital Signs (Past 12 Hours) Vital Signs Temp Pulse Pulse Pulse Resp BP BP 07/29/20 08:45 37.2 C 91 H 20 165/94 H 07/29/20 08:07 36.6 C 80 18 125/63 07/29/20 08:00 85 07/29/20 04:15 37.1 C 84 18 136/72 07/28/20 23:52 63 07/28/20 23:45 36.8 C 88 18 172/79 H Pulse Ox 07/29/20 08:45 97 07/29/20 08:07 97 07/29/20 08:00 07/29/20 04:15 99 07/28/20 23:52 07/28/20 23:45 97 Laboratory Results 07/29/20 06:42 07/29/20 06:42 (1) Acute on chronic renal failure Acute renal failure type: unspecified Chronic kidney disease stage: stage 4 (severe) Qualified Code(s): N17.9 - Acute kidney failure, unspecified; N18.4 - Chronic kidney disease, stage 4 (severe)
[2020-07-29] MEDS ORDERED: fentaNYL citrate 100 MCG/2 ML VIAL IV PRN (10:10)
[2020-07-29] MEDS ORDERED: ONDANSETRON INJ 2 MG/ML 2 ML VIAL IV PRN (10:10)
[2020-07-29] MEDS ORDERED: LABETALOL HCL IV 5 MG/ML 20ML IV PRN (10:10)
[2020-07-29] MEDS ORDERED: ATROPINE SULFATE 0.1 MG/ML 10ML SYR IV PRN (10:10)
[2020-07-29] MEDS ORDERED: ePHEDrine sulfate 50 MG/ML AMP IV PRN (10:10)
[2020-07-29] MEDS ORDERED: PHENYLEPHRINE 100MCG/ML 5ML SYR IV PRN (10:10)
--- NOTE | 2020-07-29 10:14 | Anesthesiology Consultation ---
Date of Service July 29, 2020 Covid 19 negative on 07/26/20. Assessment & Plan (1) Encounter for pre-operative examination: Chart Review Chart Review: Acceptable Risk for Surgery and Patient NOT seen in Pre Admission Testing Consults Requested none History Surgery Operation Date: 07/29/20 07:00 Proposed Procedures p Perm Catheter Insertion - Jeremías Bahena MD Height/Weight Height: 5 ft 6 in Weight: 88.2 kg Allergies Allergy/AdvReac Type Severity Reaction Status Date / Time No Known Allergies Allergy Verified 07/22/20 16:50 Medications Home Medications Medication Instructions Recorded Confirmed Last Taken amlodipine 5 mg PO DAILY 04/14/20 07/22/20 07/22/20 aspirin [Aspirin Low Dose] 81 mg PO DAILY 04/14/20 07/22/20 07/22/20 atorvastatin 80 mg PO DAILY 04/14/20 07/22/20 07/22/20 bupropion HCl 300 mg PO DAILY 04/14/20 07/22/20 07/22/20 cholecalciferol (vitamin D3) 50 mcg PO DAILY 04/14/20 07/22/20 07/22/20 ergocalciferol (vitamin D2) 1,250 mcg PO WK 04/14/20 07/22/20 Unknown fenofibrate nanocrystallized 145 mg PO DAILY 04/14/20 07/22/20 07/22/20 triamcinolone acetonide 1 applic TOPICAL BID 04/14/20 07/22/20 07/22/20 08:00 acetaminophen 650 mg PO Q4H PRN #50 tab 04/18/20 07/22/20 Unknown insulin aspart U-100 [Novolog 5 unit SC AC #15 ml 04/18/20 07/22/20 07/22/20 08:00 Flexpen U-100 Insulin] carvedilol 25 mg PO BID #60 tab 04/19/20 07/22/20 07/22/20 furosemide [Lasix] 40 mg PO BID #60 tab 04/19/20 07/22/20 07/22/20 08:00 hydralazine 50 mg PO BID #60 tab 04/19/20 07/22/20 07/22/20 08:00 famotidine [Pepcid] 20 mg PO BID PRN #60 tab 05/27/20 07/22/20 Unknown hydrocodone-acetaminophen [[place]] 1 tab PO Q6H PRN #10 tab 05/27/20 07/22/20 Unknown Jenniffer Brewster U-100 Insulin 25 unit SUBCUT QAM 07/22/20 07/22/20 07/22/20 Active Medications Generic Name Dose Route Start Last Admin Trade Name Freq PRN Reason Stop Dose Admin Acetaminophen 650 mg 07/23/20 00:03 07/24/20 08:32 Acetaminophen 325 Mg Tab PO 08/22/20 00:02 650 mg Q4H PRN Administration pain Amlodipine Besylate 10 mg 07/25/20 09:00 07/27/20 21:07 Amlodipine Besylate 5 Mg Tab PO 08/24/20 08:59 10 mg DAILY RUPESH Administration Aspirin 81 mg 07/23/20 09:00 07/28/20 08:01 Aspirin 81 Mg Ectab PO 08/22/20 08:59 81 mg DAILY RUPESH Administration Atorvastatin Calcium 80 mg 07/23/20 09:00 07/28/20 08:01 Atorvastatin 40 Mg Tab PO 08/22/20 08:59 80 mg DAILY RUPESH Administration Bupropion HCl 300 mg 07/23/20 09:00 07/28/20 08:01 Bupropion Xl 300 Mg Tabcr PO 08/22/20 08:59 300 mg DAILY RUPESH Administration Carvedilol 25 mg 07/23/20 09:00 07/28/20 20:18 Carvedilol 25 Mg Tab PO 08/22/20 08:59 25 mg BID RUPESH Administration Heparin Sodium (Porcine) 5,000 units 07/23/20 06:00 07/29/20 06:08 Heparin Sod 5,000 Unit/0.5 Ml Vial SQ 08/22/20 05:59 Not Given Q8 RUPESH Hydralazine HCl 75 mg 07/24/20 21:00 07/28/20 20:19 Hydralazine Hcl 25 Mg Tab PO 08/23/20 20:59 75 mg BID RUPESH Administration Promethazine HCl 12.5 mg/ 50.5 mls @ 202 mls/hr 07/22/20 21:34 07/23/20 08:51 Sodium Chloride IV 08/21/20 21:33 Infused Q6H PRN Infusion Nausea And Vomiting Insulin Aspart 0 units 07/23/20 00:03 07/29/20 07:38 Insulin Aspart 100 Units/Ml 3 Ml Pen SC 08/22/20 00:02 Not Given ACHS RUPESH Insulin Glargine 5 units 07/23/20 09:00 07/28/20 08:02 Insulin Glargine Solostar 100 Units/Ml 3 Ml Pen SC 08/22/20 08:59 5 units DAILY RUPESH Administration Potassium Chloride 20 meq 07/25/20 10:15 07/28/20 08:01 Potassium Chloride Crtab 20 Meq Tabcr PO 08/24/20 10:14 20 meq QAM RUPESH Administration NPO Date Last Intake of Fluids: 07/28/20 Time Last Intake of Fluids: 22:00 Date Last Intake of Solids: 07/28/20 Time Last Intake of Solids: 18:00 Past Medical History Medical History Anemia Chronic back pain CKD (chronic kidney disease) stage 4, GFR 15-29 ml/min Depression Encounter for pre-operative examination HTN (hypertension) Insulin dependent diabetes mellitus Nephrotic syndrome Proteinuria, unspecified nephrotic range Past Family History Family History Father Diabetes Mother Diabetes Past Surgical History Surgical History No significant past surgical history Social History Smoking Status: Never smoker Do You Dip or Chew Tobacco: Yes Hx Alcohol Use: Yes alcohol intake frequency: holidays/special occasions only Hx Substance Use: No Physical Exam Vital Signs Last Vital Signs Temp 37.2 C 07/29/20 08:45 Pulse 91 H 07/29/20 08:45 Resp 20 07/29/20 08:45 BP 165/94 H 07/29/20 08:45 Pulse Ox 97 07/29/20 08:45 Testing Laboratory Results 07/29/20 06:42 07/29/20 06:42 PT 11.7 Seconds (9.0-12.0) 07/29/20 06:42 INR 1.1 (0.9-1.1) 07/29/20 06:42 Urine Color Yellow 07/23/20 05:15 Urine Appearance Clear (Clear) 07/23/20 05:15 Urine pH 6.5 (4.5-7.5) 07/23/20 05:15 Ur Specific [place] 1.025 (1.000-1.030) 07/23/20 05:15 Urine Protein 4+ (Negative) H 07/23/20 05:15 Urine Glucose (UA) 2+ (Negative) H 07/23/20 05:15 Urine Ketones Trace (Negative) H 07/23/20 05:15 Urine Nitrite Negative (Negative) 07/23/20 05:15 Ur Leukocyte Esterase Negative (Negative) 07/23/20 05:15 Urine WBC (Auto) 1-5 /hpf (0-5) 07/23/20 05:15 Urine RBC (Auto) 5-10 /hpf (0-4) H 07/23/20 05:15 U Hyaline Cast (Auto) 1-5 /lpf (0-5) 07/23/20 05:15 U Epithel Cells (Auto) >30 /lpf (0-5) H 07/23/20 05:15 Urine Bacteria (Auto) 1+ (Negative) H 07/23/20 05:15 Blood Type A Positive 07/23/20 09:35 Antibody Screen NEGATIVE 07/23/20 09:35 07/23/20 05:15 Urine Culture - Final Urine,Clean Catch Three types of organisms present, all low counts probable skin rubén. No further identifications or sensitivities to follow. Electrocardiogram Date: 07/22/20 Findings: + ST @ (109) old septal infarct, L axis deviation Chest X-Ray Date: 07/22/20 XR chest 1V portable CLINICAL HISTORY: renal failure COMPARISON STUDY: 04/14/2020 FINDINGS: The cardiac and mediastinal contours are normal. There is no evidence of focal pulmonary consolidation. There is no evidence of failure. No pleural effusions are visualized.[ IMPRESSION: No active disease in the chest. ACT 112: Negative or not required by law. Electronically signed by: Ari Crandall M.D. 07/23/2020 7:55 AM Dictated: 07/23/20 0754 Echocardiogram Date: 07/23/20 EF: 65-70 LV Function: normal Other Findings: + LVH (mild concentric) and + diastolic dysfunction (grade 1) Valvular Disease: + no significant valvular disease Other Testing BILATERAL CAROTID DOPPLER STUDY HISTORY: Dizziness. Stroke symptoms. COMPARISON: None. TECHNIQUE: Real-time, grayscale, and color Doppler sonography of the carotid arteries was performed. Imaging reviewed in the transverse and longitudinal planes. All measurements were calculated based on NASCET criteria. FINDINGS: Antegrade flow is seen in the bilateral vertebral arteries. The brachial pressures are hemodynamically similar. Minimal calcified plaque within the right carotid bifurcation. The peak systolic velocity within the right ICA is 116 cm/s. The right systolic ratio is 0.9. The peak systolic velocity within the left ICA is 104 cm/s. The left systolic ratio is 0.9. IMPRESSION: No hemodynamically significant stenosis seen within the carotid arteries. ACT 112: Negative or not required by law. Electronically signed by: Sourav Payne M.D. 07/23/2020 7:43 AM Dictated: 07/23/2042Transcribed: 07/23/20741 Brain MRI WITHOUT CONTRAST HISTORY: Stroke symptoms. Dizziness. TECHNIQUE: Multiplanar multisequence MRI of the brain was performed without the use of contrast. COMPARISON STUDY: Head CT 07/22/2020. FINDINGS: There are no areas of restricted diffusion to suggest acute infarct ion. The midline structures are intact. The paranasal sinuses are clear. Small bilateral mastoid effusions. The ventricles and sulci are within normal limits for age. There is no mass, hematoma, midline shift. The major vascular flow- voids at the skull base are well maintained. IMPRESSION: No acute intracranial abnormality. Small bilateral mastoid effusions. ACT 112: Negative or not required by law. Electronically signed by: Sourav Payne M.D. 07/23/2020 7:42 AM Dictated: 07/23/2040Transcribed: 07/23/20739
[2020-07-29] MEDS ORDERED: ceFAZolin 2,000 MG/15 ML IV PUSH IV ONE (11:07)
--- NOTE | 2020-07-29 11:40 | Operative Report ---
Post Operative Report Pre & Post Diagnosis Operation Date: 07/29/20 07:00 Pre-Op Diagnosis: Acute Renal Failure Post-Op Diagnosis: Acute Renal Failure I identified the patient and participated in the time-out.: Yes Procedure Operation Date: 07/29/20 07:00 Actual Procedures p Perm Cath Placement, Right Jugular Approach, Ultrasound Localization of Right Jugular Zamzam, Fluoroscopy for Positioning(Right) - Jeremías Bahena MD Surgeon Jeremías Bahena MD Ingredient Mixer None Estimated Blood Loss 5 Findings Consistent with Post-Op Diagnosis Specimens None Anesthesia Type MAC Complications none Disposition Accompanied Patient To Recovery: No Disposition: Recovery Room Indications This a 50-year-old gentleman with acute kidney injury in need of dialysis. PermCath was recommended for access. I have discussed the risks options and benefits of the procedure with the patient. The patient understands the risks options and benefits and agrees to the procedure. Description of Procedure Patient was taken to the angio suite and placed in the supine position. The right side of the neck and chest wall were prepped and draped in a sterile manner. The patient was identified and a timeout performed. Local anesthesia was then administered to the appropriate areas of the neck and chest wall. Ultrasound was then used to locate the right internal jugular vein. The vein compressed easily, had no filing defects, and was patent. The vein was then punctured under direct ultrasound imaging. A guidewire was then passed centrally under fluoroscopic imaging. A stab wound was then made in the anterior chest wall and a 19 cm permcath was passed from the stab wound on the chest wall to the puncture site on the neck. The puncture site was then dilated till the 14Fr peel away sheath was inserted. The permcath was then inserted through the sheath to a central position in the distal superior vena cava. The peel away sheath was then removed. The catheter was then sutured in place using nylon sutures. The puncture was then closed using a 4-0 Vicryl subcuticular suture. Dermabond was used for a dressing on the puncture site. Both ports aspirated and flushed easily and were then packed with heparin. A sterile dressing was applied to the catheter. The patient left the operation room in satisfactory condition and tolerated the procedure well. All needle and sponge counts were correct at the end of the procedure. I attest to the content of the Intraoperative Record and any orders documented therein. Any exceptions are noted below.
[2020-07-29] MEDS ORDERED: ONDANSETRON INJ 2 MG/ML 2 ML VIAL ONE (11:46)
[2020-07-29] MEDS ORDERED: SODIUM CHLORIDE 0.9% 1000ML 1,000 ML IV PRN (12:03)
[2020-07-29 12:04] LABS: Hepatitis B Surface Ab Quant 48.58 mIU/mL (>or=10mIU/mL Immune); Hepatitis B Surface Antibody Immune
[2020-07-29 12:14] LABS: Hepatitis B Surface Antigen Neg (Neg)
--- NOTE | 2020-07-29 12:22 | Anesthesiology Progress Note ---
Date of Service July 29, 2020 Anesthesia Post Procedure Vital Signs Vital Signs: Temp Pulse Pulse Pulse Pulse Resp BP 07/29/20 12:10 36.7 C 84 12 07/29/20 12:00 85 14 07/29/20 11:51 36.7 C 86 12 07/29/20 08:45 37.2 C 91 H 20 07/29/20 08:07 36.6 C 80 18 125/63 07/29/20 08:00 85 07/29/20 04:15 37.1 C 84 18 136/72 07/28/20 23:52 63 07/28/20 23:45 36.8 C 88 18 172/79 H 07/28/20 19:32 79 07/28/20 19:01 36.8 C 83 19 148/82 H 07/28/20 15:11 36.6 C 75 20 113/66 BP Pulse Ox 07/29/20 12:10 106/72 98 07/29/20 12:00 114/67 97 07/29/20 11:51 110/72 96 07/29/20 08:45 165/94 H 97 07/29/20 08:07 97 07/29/20 08:00 07/29/20 04:15 99 07/28/20 23:52 07/28/20 23:45 97 07/28/20 19:32 07/28/20 19:01 97 07/28/20 15:11 98 Pain Intensity Medial Head: Pain Intensity: 2 Right Leg: Pain Intensity: 0 Lower Back: Pain Intensity: 0 Transfer of Care Handoff Completed per policy Notes Mental Status: alert / awake / arousable Patient Amnestic to Procedure: Yes Nausea / Vomiting: adequately controlled Pain: adequately controlled Airway Patency, RR, SpO2: stable & adequate BP & HR: stable & adequate Hydration State: stable & adequate Anesthetic Complications: no major complications apparent and Pt Satisfied with anesthetic care
[2020-07-29] MEDS: hydrALAZINE HCL 25 MG TAB PO SCH ×2 (12:54→20:08)
[2020-07-29] MEDS: ASPIRIN 81 MG ECTAB PO SCH (12:54)
[2020-07-29] MEDS: POTASSIUM CHLORIDE CRTAB 20 MEQ TABCR PO SCH (12:55)
[2020-07-29] MEDS: ATORVASTATIN 40 MG TAB PO SCH (12:55)
[2020-07-29] MEDS: buPROPion XL 300 MG TABCR PO SCH (12:55)
[2020-07-29] MEDS: amLODIPine BESYLATE 5 MG TAB PO SCH (12:56)
[2020-07-29] MEDS: carvediloL 25 MG TAB PO SCH ×2 (12:56→20:09)
[2020-07-29] MEDS: INSULIN GLARGINE SOLOSTAR 100 UNITS/ML 3 ML PEN SC SCH (12:57)
[2020-07-30] MEDS: HEPARIN SOD 5,000 UNIT/0.5 ML VIAL SQ SCH ×2 (05:30→15:40)
[2020-07-30 06:45] LABS: Hematocrit (blood only) 29.7 % (42-52); Hemoglobin 9.7 g/dL (14.0-18.0); Mean Corpuscular Hgb Conc 32.7 g/dL (32-36); Mean Platelet Volume 10.1 fL (7.4-10.4); Platelet Count 388 K/uL (130-400); RDW Coefficient of Variation 15.4 % (11.5-14.5); Red Blood Count 3.23 M/uL (4.7-6.1); White Blood Count 7.81 K/uL (4.8-10.8)
[2020-07-30 07:31] LABS: Albumin Level 1.7 gm/dl (3.4-5.0); BUN Creatinine Ratio 7.5 (10-20); Calcium 7.8 mg/dl (8.5-10.1); Creatinine Clr Calc Pharmacy 20.7 ml/min; Est GFR (Non-African American) 14.6; Phosphorus 3.5 mg/dl (2.5-4.9); Potassium 4.4 mmol/L (3.5-5.1)
[2020-07-30] MEDS: hydrALAZINE HCL 25 MG TAB PO SCH (09:02)
[2020-07-30] MEDS: INSULIN ASPART 100 UNITS/ML 3 ML PEN SC SCH ×2 (09:02→11:32)
[2020-07-30] MEDS: POTASSIUM CHLORIDE CRTAB 20 MEQ TABCR PO SCH (09:03)
[2020-07-30] MEDS: ATORVASTATIN 40 MG TAB PO SCH (09:03)
[2020-07-30] MEDS: ASPIRIN 81 MG ECTAB PO SCH (09:03)
[2020-07-30] MEDS: amLODIPine BESYLATE 5 MG TAB PO SCH (09:03)
[2020-07-30] MEDS: carvediloL 25 MG TAB PO SCH (09:03)
[2020-07-30] MEDS: INSULIN GLARGINE SOLOSTAR 100 UNITS/ML 3 ML PEN SC SCH (09:03)
[2020-07-30] MEDS: buPROPion XL 300 MG TABCR PO SCH (09:04)
--- NOTE | 2020-07-30 10:57 | Discharge Summary ---
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 First began to experience double vision a few months ago and then developed dizziness a few days ago after drinking alcohol on . Was nauseated with some vomiting that has since resolved. Also endorses feeling his legs go weak intermittently but states that has been going on for years now. Did recently see eye doctor and was told to return for follow up testing. Follows with nephrology and is scheduled for vascular surgery appointment in [place] for HD access. Cr ~high 3s-4 since April. Patient's fiance manages medication but he believes he has been taking medication as scheduled, including blood pressure medications. In ED, blood pressure is significantly elevated 209/166. Was given 10 mg IV labetalol x1. Repeat BP 215/117. Given another 10 mg IV labetalol x 1 during my interview. Endorses dizziness, diplopia and generalized weakness. Denies headache, chest pain, nausea or vomiting. No fever chills. No palpitations, shortness of breath, nausea, abdominal pain, dysuria, diarrhea or constipation. Admission Exam Per Admitting Provider General Appearance: vitals as above, NAD, sitting up in bed, pleasant, conversing easily Head: normocephalic, atraumatic Eyes: PERRL, EOMI with exception of absent abduction of the R eye, accomodation nl, poor acuity bilaterally, conjunctivae normal, anicteric sclerae ENT: external ear and nose normal, oropharynx normal Neck: normal visual inspection, trachea midline, no thyromegaly Respiratory: normal respiratory effort, lungs clear to auscultation, no wheeze, rales, rhonchi. No accessory muscle use Cardiovascular: regular rate, rhythm, no murmur, normal peripheral pulses, no BLE edema. Vessels: no JVD Chest: normal inspection of chest Abdomen/GI: normal bowel sounds, soft, nontender, no hepatosplenomegaly Extremities/Musculoskeletal: no cyanosis or clubbing, extremities motor strength 5/5 Neurologic: + See eye exam above. 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 Ambulatory dysfunction MARCOS on CKD IV Nephrolytic Syndrome Hypokalemia DM II Anemia of chronic disease Hyperlipidemia Mood disorder Abnormal UA Discharge Exam see below Discharge Data Allergies Allergy/AdvReac Type Severity Reaction Status Date / Time No Known Allergies Allergy Verified 07/22/20 16:50 Consultations 07/22/20 20:37 ED Decision to Admit Stat 07/23/20 00:03 Consult Nephrology Routine Consult Neurology Routine 07/25/20 13:34 Consult Ophthalmology Routine 07/26/20 08:08 Consult Vascular Surgery Routine Procedures Performed Operation Date: 07/29/20 07:00 Actual Procedures p Perm Cath Placement, Right Jugular Approach, Ultrasound Localization of Right Jugular Zamzam, Fluoroscopy for Positioning(Right) - Jeremías Bahena MD Current Diagnoses Sixth [abducent] nerve palsy, right eye (07/22/20) Unspecified visual disturbance (07/22/20) Hypertensive urgency (07/22/20) Nephrotic syndrome with unspecified morphologic changes (07/22/20) Acute kidney failure, unspecified (07/22/20) Chronic kidney disease, stage 4 (severe) (07/22/20) Unspecified abnormalities of gait and mobility (07/22/20) Dizziness and giddiness (07/22/20) Encounter for other preprocedural examination (07/22/20) Allergies No Known Allergies Allergy (Verified 07/22/20 16:50) Height/Weight/Isolation Height 5 ft 6 in Weight 85.4 kg Chemistry 07/29/20 07/30/20 06:42 06:22 Sodium 139 139 Potassium 4.2 4.4 Chloride 111 H 110 H Carbon Dioxide 20 L 25 Anion Gap 8.0 4.0 BUN 43 H 33 H Creatinine 4.93 H* 4.38 H D Glucose 115 H 111 H Ordered Studies 07/22/20 18:07 CT head/brain wo con Stat 07/22/20 18:25 CT abd pelvis wo con Stat 07/23/20 00:03 MR angio head wo con Urgent MR brain wo con Urgent US carotid doppler BI Routine 07/29/20 07:25 US EV guide vascular access Routine 07/29/20 09:05 EV cvc insrt tunnel wo prt/division merchandise manager Routine Hospital Course (1) Hypertensive urgency: Hypertensive urgency CT Head:No acute intracranial findings ?Compliance to medications Continue amlodipine, Coreg, hydralazine BP controlled Stroke like symptoms Right leg weakness-he told me this was not new, Dizziness Blurred/Double Vision: ? 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 Small bilateral mastoid effusions. Carotid Doppler:No hemodynamically significant stenosis seen within the carotid arteries. MRA Brain:No significant stenosis, occlusion, or aneurysm within the [place]. Continue aspirin, statin Neurology on case C/S Ophthalmology-Dr Emiliano Alcaraz wants him to follow up in his office where he has the equipment to do better analysis, but he feels the 6th nerve palsy is sec to the HTN and DM PT/OT May need EMG as outpatient Lyme negative MARCOS on CKD IV Nephrolytic Syndrome Hold diuretics Avoid nephrotoxic agents as able Monitor renal function Appreciate nephrology input Dialysis Catheter placed 07/29 Hypokalemia Normal magnesium levels Replete tablets as needed DM II Last HbA1C:7.2 on Jun 07 Continue insulin therapy Monitor BGs Anemia of chronic disease No acute bleeding issues Monitor Hyperlipidemia Continue statin Mood disorder Continue home medication Abnormal UA R/O UTI Urine culture pending Consider antibiotics if needed DVT Px: Heparin SQ Code Status Full Code Disposition Home on DC v rehab Labs checked Feeling fine ROS-No Headache, No Visual Changes, No Nausea, No Vomiting, No Fever, No Chills, No Neck Pain or Stiffness, No Chest Pain, No Palpitations, No SOB, No CHANEY, No Cough, No Sputum, No Wheezing, No Abdominal Pain, No Diarrhea, No Hematemesis, No Hemoptysis, No Unexpected Weight Loss, No Flank pain, No Melena, No Hematochezia, No Frequency, No Urgency, No Burning, No Hematuria, No Rashes, No Diaphoresis. Appetite is Normal Physical Exam Gen-AAO x 3, NAD, Afebrile Head-NCAT, EOMI, PERRLA, Anicteric Sclera, No Posterior Pharyngeal Erythema Neck-Supple, No JVD, No Thyromegaly, No Masses, No LAD, No Bruits Lungs-Clear to Auscultation Bilaterally, No Rales, No Rhonchi, No Wheezing, No Crepitus Chest-No S4, +S1, +S2, No S3, No Murmurs, No Rubs, No Gallops, No Ectopy Abdomen-Soft, Bowel Sounds Present, Non Tender, Non Distended, No Hepatomegaly, No Splenomegaly, No Palpable Masses, No Rebound, No Rigidity, No Guarding Musculoskeletal-Full Range of Motion Bilaterally, No CVAT Extremities-No Cyanosis, No Clubbing, No Edema Nuero-Cranial Nerves II-XII grossly intact, Motor WNL, DTRs WNL, Strength WNL, on the left, Can lift RLE now Psych-Odd affect Total Time Total Time Spent Total Time Spent (In Minutes): 45 min Total Time Includes: Examination of the Patient, Discharge Planning, Medication Reconciliation and Communication With Other Providers Discharge Plan Discharge Items Patient Disposition: Transfer Inpatient Rehab Fac Reason For Visit: HTN CRISIS Discharge Diagnosis: Hypertensive urgency: Stroke like symptoms Right leg weakness Blurred/Double Vision: 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 Ambulatory dysfunction MARCOS on CKD IV Nephrolytic Syndrome Hypokalemia DM II Anemia of chronic disease Hyperlipidemia Mood disorder Abnormal UA Condition on Discharge: Good Activity: Resume your previous activity Lifting: Gradually increase as tolerated Bathing: No limitations Sexual Activity: When tolerated Exercise/Sports: Gradually increase as tolerated Driving/Machine Use: No limitations Weightbearing: Full weightbearing Non-emergency contact: Primary Care Provider, Specialist and [employer] Blind Worker Call non-emergency contact if: you have any medication questions Follow-up/Referrals: Nina Corea MD, PhD [Physician] - (Call for appt) Emiliano Alcaraz MD [Physician] - 08/02/20 1:30 pm (Dr. Emiliano Alcaraz [address] [facility], [address], [place] [id number] ) Pauline Carrillo, [Primary Care Provider] - Diet: Carb Consistent or DM2, Dialysis Renal and Heart Healthy Addtl Attending Provider Instructions: Control you sugars Pending Studies at Discharge: No Stand-Alone Forms: My [employer] Skilled Items Patient informed of condition?: Yes DNR: No Discharge Level of Care: Acute rehab Communicable Disease: No Discharge Prognosis: Improving Lines: None Urinary Catheter: No Medications and DC Order Prescriptions: New hydrocodone-acetaminophen [[place]] 5-325 mg Tablet 1 tab PO Q6H PRN (Reason: pain) Qty: 30 RF: 0 hydralazine 25 mg Tablet 75 mg PO BID Qty: 90 RF: 0 amlodipine [Norvasc] 5 mg Tablet 10 mg PO DAILY Qty: 30 RF: 0 tramadol 50 mg Tablet 50 mg PO Q4H PRN (Reason: pain) Qty: 30 RF: 0 potassium chloride [Klor-Con M20] 20 mEq Tablet,Er Particles/Crystals 20 meq PO QAM Qty: 30 RF: 0 Continued atorvastatin 80 mg Tablet 80 mg PO DAILY RF: 0 aspirin [Aspirin Low Dose] 81 mg Tablet,Delayed Release (Dr/Ec) 81 mg PO DAILY RF: 0 triamcinolone acetonide 0.1 % Cream 1 applic TOPICAL BID RF: 0 ergocalciferol (vitamin D2) 1,250 mcg (50,000 unit) Capsule 1,250 mcg PO WK RF: 0 bupropion HCl 300 mg Tablet Extended Release 24 Hr 300 mg PO DAILY RF: 0 fenofibrate nanocrystallized 145 mg Tablet 145 mg PO DAILY RF: 0 cholecalciferol (vitamin D3) 50 mcg (2,000 unit) Tablet 50 mcg PO DAILY RF: 0 acetaminophen 325 mg Tablet 650 mg PO Q4H PRN (Reason: pain) Qty: 50 RF: 0 insulin aspart U-100 [Novolog Flexpen U-100 Insulin] 100 unit/mL (3 mL) Insulin Pen 5 unit SC AC Qty: 15 RF: 1 carvedilol 25 mg tablet 25 mg PO BID Qty: 60 RF: 0 Lantus Solostar U-100 Insulin 100 unit/mL (3 mL) insulin pen 25 unit SUBCUT QAM RF: 0 famotidine [Pepcid] 20 mg tablet 20 mg PO BID PRN (Reason: gastritis) Qty: 60 RF: 0 Discontinued amlodipine 10 mg Tablet 5 mg PO DAILY RF: 0 hydralazine 50 mg tablet 50 mg PO BID Qty: 60 RF: 0 furosemide [Lasix] 40 mg tablet 40 mg PO BID Qty: 60 RF: 0 hydrocodone-acetaminophen [[place]] 5-325 mg tablet 1 tab PO Q6H PRN (Reason: pain) Qty: 10 RF: 0 Admission Data Admit Date/Time: 07/22/20 23:26 Attending Provider: Jason Sy Admit Provider: Morgan Enriquez Primary Care Provider: Pauline Carrillo Other Providers: [facility] ; [facility] ; Morgan Enriquez ; Nina Corea ; Anshu Colon ; Haley Ahumada ; Chrissie Joya ; Quang Gonzalez ; Verónica Momin ; Tania Noble ; Boone Chavez ; Tania Gavin ; Jason Katz ; Emiliano Alcaraz ; Jeremías Bahena
--- NOTE | 2020-07-30 11:34 | Hospitalist Progress Note ---
Date of Service July 30, 2020 Assessment & Plan (1) Hypertensive urgency: Hypertensive urgency CT Head:No acute intracranial findings ?Compliance to medications Continue amlodipine, Coreg, hydralazine BP controlled Stroke like symptoms Right leg weakness-he told me this was not new, Dizziness Blurred/Double Vision: ? 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 Small bilateral mastoid effusions. Carotid Doppler:No hemodynamically significant stenosis seen within the carotid arteries. MRA Brain:No significant stenosis, occlusion, or aneurysm within the [place]. Continue aspirin, statin Neurology on case C/S Ophthalmology-Dr Emiliano Alcaraz wants him to follow up in his office where he has the equipment to do better analysis, but he feels the 6th nerve palsy is sec to the HTN and DM PT/OT May need EMG as outpatient Lyme negative MARCOS on CKD IV Nephrolytic Syndrome Hold diuretics Avoid nephrotoxic agents as able Monitor renal function Appreciate nephrology input Dialysis Catheter placed 07/29 Hypokalemia Normal magnesium levels Replete tablets as needed DM II Last HbA1C:7.2 on Jun 07 Continue insulin therapy Monitor BGs Anemia of chronic disease No acute bleeding issues Monitor Hyperlipidemia Continue statin Mood disorder Continue home medication Abnormal UA R/O UTI Urine culture pending Consider antibiotics if needed DVT Px: Heparin SQ Code Status Full Code Disposition DC to [facility] awaiting auth Labs checked Feeling fine ROS-No Headache, No Visual Changes, No Nausea, No Vomiting, No Fever, No Chills, No Neck Pain or Stiffness, No Chest Pain, No Palpitations, No SOB, No CHANEY, No Cough, No Sputum, No Wheezing, No Abdominal Pain, No Diarrhea, No Hematemesis, No Hemoptysis, No Unexpected Weight Loss, No Flank pain, No Melena, No Hematochezia, No Frequency, No Urgency, No Burning, No Hematuria, No Rashes, No Diaphoresis. Appetite is Normal Physical Exam Gen-AAO x 3, NAD, Afebrile Head-NCAT, EOMI, PERRLA, Anicteric Sclera, No Posterior Pharyngeal Erythema Neck-Supple, No JVD, No Thyromegaly, No Masses, No LAD, No Bruits Lungs-Clear to Auscultation Bilaterally, No Rales, No Rhonchi, No Wheezing, No Crepitus Chest-No S4, +S1, +S2, No S3, No Murmurs, No Rubs, No Gallops, No Ectopy Abdomen-Soft, Bowel Sounds Present, Non Tender, Non Distended, No Hepatomegaly, No Splenomegaly, No Palpable Masses, No Rebound, No Rigidity, No Guarding Musculoskeletal-Full Range of Motion Bilaterally, No CVAT Extremities-No Cyanosis, No Clubbing, No Edema Nuero-Cranial Nerves II-XII grossly intact, Motor WNL, DTRs WNL, Strength WNL, on the left, Can lift RLE now Psych-Odd affect Admission and Anticipated Discharge Date Admission Date: July 22, 2020 Results & Data Results & Data ([facility]) Vital Signs (Past 12 Hours) Vital Signs Temp Pulse Pulse Resp BP BP Pulse Ox 07/30/20 09:46 80 07/30/20 07:54 36.8 C 76 18 121/60 95 07/30/20 03:01 36.7 C 81 18 134/74 97
--- NOTE | 2020-07-30 17:07 | Nephrology Progress Note ---
Date of Service July 30, 2020 Assessment & Plan (1) Acute on chronic renal failure: rapidly progressive CKD from longstanding poorly controlled diabetes and HTN > had been advanced stage 4 as of last month with eGFR 15-20 mL /min >> has continued to worsen since admission despite conservative measures. He has an acute component to his presentation. Creatinine plateau'd just under 5. Other chemistries are stable. He has metabolic acidosis. pt getting TDC today; appreciate case mgt efforts to arrange OP dialysis at [facility] where he will go after rehab -for second tx at HD and will change while there to MWF schedule; will plan at d/c and arrange txs so he can go to [facility] schedule -daily bmp -continue nephrotoxin avoidance unless life/limb saving (2) Hypertensive urgency: goal sbp today is 130-150s > he has past 2 days had acceptable control; still labile -cont coreg current dose -cont to hold lasix -cont CCB 10 mg daily and hydralazine 75 mg bid (3) Nephrotic syndrome: drives worsening renal function and repeated HTN urgency; from diabetic nephropathy and HTN sclerosis (4) Visual disturbances: chronic but per report acutely worsened recently. no structural findings on imaging from admission -f/u neuro recs > OP neurooptho eval, eyepatch, PT evals, OP EMG -per primary service Admission and Anticipated Discharge Date Admission Date: July 22, 2020 Subjective pt seen in [facility] this am about 1150; tolerated tx well yesterday; no sob, no N/v, no edema; tolerating po; for rehab d/c Review of Systems Review of Systems: All systems reviewed & are unremarkable except as noted in Subjective Physical Exam Constitutional: well developed and well nourished; no acute distress Eyes: + EOM not intact (R eye does not ABduct) ENMT: Ears: no external ear abnormality Nose: no external nose abnormality Mouth: + dry oral mucous membranes Neck: no nuchal rigidity Respiratory: normal respiratory effort Auscultation: lungs clear to auscultation bilaterally and + diminished lung sounds Cardiovascular: RRR, no murmur, no edema Gastrointestinal (Abdomen): Inspection/Auscultation: normal bowel sounds Percussion/Palpation: abdomen soft; abdomen nontender Musculoskeletal: Extremities: strength 5/5 throughout Skin: no rashes, warm and dry Neurologic: summers, fluent speech, no tremor; keeps one eye closed Psychiatric: Orientation: alert and oriented x 3 Speech: normal rate/rhythm/volume of speech Affect: + blunted affect Results & Data ([facility]) Vital Signs (Past 12 Hours) Vital Signs Temp Pulse Pulse Pulse Resp BP BP 07/30/20 14:45 36.8 C 89 83 18 98/54 L 134/74 07/30/20 12:00 36.8 C 83 18 98/54 L 07/30/20 09:46 80 07/30/20 07:54 36.8 C 76 18 121/60 Pulse Ox 07/30/20 14:45 99 07/30/20 12:00 99 07/30/20 09:46 07/30/20 07:54 95 Laboratory Results 07/30/20 06:22 07/30/20 06:22 (1) Acute on chronic renal failure Acute renal failure type: unspecified Chronic kidney disease stage: stage 4 (severe) Qualified Code(s): N17.9 - Acute kidney failure, unspecified; N18.4 - Chronic kidney disease, stage 4 (severe)
== END 2020-07-30 16:32 | DRG 305 ==
LOC: ED 16:17 → 2S 23:26 → SUATTDRO 23:26 → 2S 07-23 00:21